=== PATIENT | female | born 1985 | race Caucasian/White ===

== ENCOUNTER 2017-03-10 17:48 | Inpatient (IN) ==
--- NOTE | 2017-03-10 18:05 | Emergency Department Note ---
Disposition Clinical Impression: Surgical site infection, Extruding suture Disposition: Admitted As Inpatient Condition: Good General Adult HPI - General Chief complaint: ED Extremity Problem,Nontraumatic Stated complaint: Right Shoulder Pain "Wire sticking out" Time Seen by Provider: 03/10/17 17:57 Source: patient, EMS Limitations: no limitations - History of Present Illness Pain Scale: 10 - Related Data Home Medications Medication Instructions Recorded Confirmed Naproxen [Naprosyn] 500 mg PO BID 03/10/17 03/10/17 Sulfamethoxazole/Trimeth DS 1 each PO QID 03/10/17 03/10/17 [Bactrim DS] Tramadol HCl [Ultram] 50 mg PO Q6-8H PRN 03/10/17 03/10/17 Allergies Allergy/AdvReac Type Severity Reaction Status Date / Time clindamycin AdvReac Swelling Verified 03/10/17 18:30 of the Eye Penicillins AdvReac Hives Verified 03/10/17 18:30 Past Medical History - Past Medical History Medical history: Reports: non-contributory Psychiatric history: Reports: no psych history - Social History Smoking Status: Current every day smoker Smokeless Tobacco Status: No Alcohol use: Reports: none Drug use: Reports: none Physical Exam - General Limitations: no limitations General appearance: alert, in no apparent distress Course Vital Signs Temperature 98.5 F 03/10/17 17:49 Pulse Rate 76 03/10/17 17:49 Respiratory Rate 16 03/10/17 17:49 Blood Pressure 146/86 03/10/17 17:49 O2 Sat by Pulse Oximetry 100 03/10/17 17:49 Temperature 98.5 F 03/10/17 17:49 Pulse Rate 59 03/10/17 21:17 Respiratory Rate 16 03/10/17 21:17 Blood Pressure 130/97 03/10/17 21:17 O2 Sat by Pulse Oximetry 98 03/10/17 21:17 Oxygen Delivery Oxygen Delivery Room Air Medical Decision Making - Lab Data Result diagrams: 03/10/17 18:25 03/10/17 18:25 Lab Results 03/10/17 03/10/17 03/10/17 Range/Units 18:25 18:25 18:25 WBC 13.7 H (4.3-11.1) K/mcL RBC 4.37 (3.82-4.97) M/mcL Hgb 12.3 (11.5-15.4) g/dL Hct 37.8 (35.3-44.9) % MCV 86.5 (83.0-100.0) fL MCH 28.1 (28.0-33.3) pg MCHC 32.5 (31.6-35.5) g/dL RDW 15.9 H (11.5-14.5) % Plt Count 607 H (140-400) K/mcL MPV 8.6 L (9.4-12.4) fL Immature Gran % 0.3 (0-4) % Seg Neutrophils % 60.3 % Lymphocytes % 29.7 % Monocytes % 6.9 % Eosinophils % 2.3 % Basophils % 0.5 % Neutrophils # 8.3 (1.6-8.9) K/mcL Lymphocytes # 4.1 (0.6-4.6) K/mcL Monocytes # 1.0 (0.0-1.3) K/mcL Eosinophils # 0.3 (0.0-0.6) K/mcL Basophils # 0.1 (0.0-0.2) K/mcL ESR 54 H (0-15) mm/hr Sodium 136 (136-145) mEq/L Potassium 3.5 (3.5-4.5) mEq/L Chloride 105 (98-109) mEq/L Carbon Dioxide 23 (19-29) mEq/L BUN 12 (7-20) mg/dL Creatinine 0.86 (0.57-1.11) mg/dL Est GFR ( Amer) > 60 (> 60) Est GFR (Non-Af Amer) > 60 (> 60) BUN/Creatinine Ratio 14 (6-26) Glucose 69 L (70-99) mg/dL Calculated Osmolality 280 (280-300) Calcium 9.1 (8.6-10.8) mg/dL C-Reactive Protein 14 H (Less than 5) mg/L Urine Test (Negative) 03/10/17 Range/Units 18:30 WBC (4.3-11.1) K/mcL RBC (3.82-4.97) M/mcL Hgb (11.5-15.4) g/dL Hct (35.3-44.9) % MCV (83.0-100.0) fL MCH (28.0-33.3) pg MCHC (31.6-35.5) g/dL RDW (11.5-14.5) % Plt Count (140-400) K/mcL MPV (9.4-12.4) fL Immature Gran % (0-4) % Seg Neutrophils % % Lymphocytes % % Monocytes % % Eosinophils % % Basophils % % Neutrophils # (1.6-8.9) K/mcL Lymphocytes # (0.6-4.6) K/mcL Monocytes # (0.0-1.3) K/mcL Eosinophils # (0.0-0.6) K/mcL Basophils # (0.0-0.2) K/mcL ESR (0-15) mm/hr Sodium (136-145) mEq/L Potassium (3.5-4.5) mEq/L Chloride (98-109) mEq/L Carbon Dioxide (19-29) mEq/L BUN (7-20) mg/dL Creatinine (0.57-1.11) mg/dL Est GFR ( Amer) (> 60) Est GFR (Non-Af Amer) (> 60) BUN/Creatinine Ratio (6-26) Glucose (70-99) mg/dL Calculated Osmolality (280-300) Calcium (8.6-10.8) mg/dL C-Reactive Protein (Less than 5) mg/L Urine Test Negative (Negative) Attestation Statement - Attestation Attestation: I examined this patient and my medical decision-making was reviewed with the Resident Physician. I agree with the documented findings, disposition and treatment plan as described except to the extent set forth below. [id number] time provided Right shoulder with protruding suture material and a granuloma. Incision looks infected. Patient uncomfortable appearing. Patient seen in conjunction with Dr. Martini
[2017-03-10] MEDS ORDERED: *HR* Morphine 2 MG/ML SYRINGE IVP ONE (18:27)
[2017-03-10] MEDS ORDERED: 0.9 % Sodium Chloride 1,000 ML IVC ONE (18:27)
[2017-03-10 18:35] LABS: Basophils # 0.1 K/mcL (0.0-0.2); Basophils % 0.5 %; Eosinophils # 0.3 K/mcL (0.0-0.6); Eosinophils % 2.3 %; Hematocrit 37.8 % (35.3-44.9); Hemoglobin 12.3 g/dL (11.5-15.4); Immature Granulocytes % 0.3 % (0-4); Lymphocytes # 4.1 K/mcL (0.6-4.6); Lymphocytes % 29.7 %; Mean Corpuscular HGB Conc 32.5 g/dL (31.6-35.5); Mean Corpuscular Hemoglobin 28.1 pg (28.0-33.3); Mean Corpuscular Volume 86.5 fL (83.0-100.0); Mean Platelet Volume 8.6 fL (9.4-12.4); Monocytes % 6.9 %; Neutrophils # 8.3 K/mcL (1.6-8.9); Platelet Count 607 K/mcL (140-400); Red Blood Count 4.37 M/mcL (3.82-4.97); Red Cell Distribution Width 15.9 % (11.5-14.5); Segmented Neutrophils % 60.3 %
[2017-03-10] MEDS ORDERED: Vancomycin 750 MG in D5% in Water 250 ML IVPB ONE ×2 (18:53→18:59)
[2017-03-10] MEDS ORDERED: Piperacillin/Tazobactam 4.5 GM in D5% in Water (Mini-Bag+) 100 ML IVPB ONE (18:54)
[2017-03-10] MEDS ORDERED: Cefepime HCl 1,000 MG in D5% in Water (Mini-Bag+) 100 ML IVPB ONE (19:04)
[2017-03-10 19:13] LABS: BUN/Creatinine Ratio 14 (6-26); Blood Urea Nitrogen 12 mg/dL (7-20); C-Reactive Protein 14 mg/L (Less than 5); Calcium 9.1 mg/dL (8.6-10.8); Carbon Dioxide 23 mEq/L (19-29); Chloride 105 mEq/L (98-109); Glucose 69 mg/dL (70-99); Osmolality,Calculated 280 (280-300); Potassium 3.5 mEq/L (3.5-4.5); Sodium 136 mEq/L (136-145); eGFR For African Americans > 60 (> 60); eGFR For Non-African Americans > 60 (> 60)
[2017-03-10] MEDS ORDERED: *HR* HYDROmorphone (PF) 1 MG/ML SYRINGE IVP ONE (19:25)
--- NOTE | 2017-03-10 19:55 | Emergency Department Note ---
Disposition Clinical Impression: Surgical site infection Qualifiers: Encounter type: initial encounter Qualified Code(s): T81.4XXA - Infection following a procedure, initial encounter Extruding suture Qualifiers: Encounter type: initial encounter Qualified Code(s): T81.30XA - Disruption of wound, unspecified, initial encounter Disposition: Admitted As Inpatient Condition: Good Referrals: NONE,PCP [Primary Care Provider] - Forms: ED Satisfaction Letter Time of Disposition: 20:02 Extremity Problem HPI - General Chief complaint: ED Extremity Problem,Nontraumatic Stated complaint: Right Shoulder Pain "Wire sticking out" Time Seen by Provider: 03/10/17 17:57 Source: patient, EMS Limitations: no limitations Nursing Notes Reviewed: Yes Vital Signs Reviewed: Yes - History of Present Illness HPI Narrative: 31-year-old female with past medical history of right shoulder replacement with revision a year ago presents to the emergency department with increasing purulent sputum, pain, redness, and suture coming out of the wound. She states that she has been missing her orthopedic appointment as that rescheduled due to issues with getting a ride. She states that she was seen recently at a different hospital 2 days ago and given Bactrim. Patient states that she is ready to be seen. Pain Scale: 10 - Related Data Home Medications Medication Instructions Recorded Confirmed Naproxen [Naprosyn] 500 mg PO BID 03/10/17 03/10/17 Sulfamethoxazole/Trimeth DS 1 each PO QID 03/10/17 03/10/17 [Bactrim DS] Tramadol HCl [Ultram] 50 mg PO Q6-8H PRN 03/10/17 03/10/17 Allergies Allergy/AdvReac Type Severity Reaction Status Date / Time clindamycin AdvReac Swelling Verified 03/10/17 18:30 of the Eye Penicillins AdvReac Hives Verified 03/10/17 18:30 All systems ED: reviewed and negative except as stated. Review of Systems: As Per HPI Constitutional: Denies: fever, chills Cardiovascular: Denies: chest pain Respiratory: Denies: cough, dyspnea, wheezes Gastrointestinal: Denies: abdominal pain, nausea, vomiting Genitourinary: Denies: urgency, dysuria, frequency Musculoskeletal: Reports: other (Right shoulder pain) Integumentary: Reports: other (Opening draining purulent fluid). Denies: rash Past Medical History - Past Medical History Medical history: Reports: non-contributory Psychiatric history: Reports: no psych history - Social History Smoking Status: Current every day smoker Smokeless Tobacco Status: No Alcohol use: Reports: none Drug use: Reports: none Physical Exam - General Limitations: no limitations General appearance: alert, in no apparent distress - Head Head exam: atraumatic, normocephalic - Eye Eye exam: Absent: scleral icterus, conjunctival injection - ENT ENT exam: normal exam, normal oropharynx - Neck Neck exam: Present: full ROM, trachea midline. Absent: tenderness, meningismus - Chest Chest inspection: Present: normal inspection, symmetric chest wall rise - Respiratory Respiratory exam: Present: normal lung sounds bilaterally. Absent: respiratory distress, accessory muscle use - Cardiovascular Cardiovascular exam: Present: regular rate, normal rhythm, normal heart sounds - Abdominal Exam Abdominal exam: Present: soft, Non-Tender. Absent: distention, guarding - Expanded Upper Extremity Exam Shoulder exam: Present: tenderness, swelling, other (Right shoulder surgical site is open, 2 cm in diameter, draining purulent yellow fluid, suture outside of the wound, very tender to palpation.) Course Course Narrative: 31-year-old female presents to the emergency department with complaint of purulent drainage and pain of her right shoulder. This patient is a current patient of Dr. Ragland, the orthopedic surgeon. This wound looks infected. There is cellulitis surrounding it. At this time, I will consult him for further recommendation regarding this patient as I plan on admitting her to the hospital to have this wound possibly explored. Patient is currently hemodynamically stable at this time. Vital Signs Temperature 98.5 F 03/10/17 17:49 Pulse Rate 76 03/10/17 17:49 Respiratory Rate 16 03/10/17 17:49 Blood Pressure 146/86 03/10/17 17:49 O2 Sat by Pulse Oximetry 100 03/10/17 17:49 Temperature 98.5 F 03/10/17 17:49 Pulse Rate 76 03/10/17 17:49 Respiratory Rate 16 03/10/17 17:49 Blood Pressure 146/86 03/10/17 17:49 O2 Sat by Pulse Oximetry 100 03/10/17 17:49 Oxygen Delivery Oxygen Delivery Room Air - Reevaluation(s) Reevaluation #1: I spoke to Dr. Taveras the orthopedic surgeon on the phone. He stated to start IV antibiotics as well as obtain a sedimentation rate, CBC, wound culture, IV fluids. I agreed with this plan. I will admit this patient to the hospitalist. Patient is still having discomfort after administration of morphine. I will add Dilaudid to her pain management. Time: 18:30 Reevaluation #2: I have spoken to the hospitalist on the phone as he has agreed to accept the admission of this patient. She is currently hemodynamically stable at this time. Time: 20:03 Vital Signs Temperature 98.5 F 03/10/17 17:49 Pulse Rate 76 03/10/17 17:49 Respiratory Rate 16 03/10/17 17:49 Blood Pressure 146/86 03/10/17 17:49 O2 Sat by Pulse Oximetry 100 03/10/17 17:49 Temperature 98.5 F 03/10/17 17:49 Pulse Rate 76 03/10/17 17:49 Respiratory Rate 16 03/10/17 17:49 Blood Pressure 146/86 03/10/17 17:49 O2 Sat by Pulse Oximetry 100 03/10/17 17:49 Oxygen Delivery Oxygen Delivery Room Air Extremity Problem, Nontraumati - Medical Records Medical records reviewed: Yes I reviewed the patient's medical records. - Lab Data Lab results reviewed: Yes I reviewed the patient's lab results. Result diagrams: 03/10/17 18:25 03/10/17 18:25 Lab Results 03/10/17 03/10/17 03/10/17 Range/Units 18:25 18:25 18:25 WBC 13.7 H (4.3-11.1) K/mcL RBC 4.37 (3.82-4.97) M/mcL Hgb 12.3 (11.5-15.4) g/dL Hct 37.8 (35.3-44.9) % MCV 86.5 (83.0-100.0) fL MCH 28.1 (28.0-33.3) pg MCHC 32.5 (31.6-35.5) g/dL RDW 15.9 H (11.5-14.5) % Plt Count 607 H (140-400) K/mcL MPV 8.6 L (9.4-12.4) fL Immature Gran % 0.3 (0-4) % Seg Neutrophils % 60.3 % Lymphocytes % 29.7 % Monocytes % 6.9 % Eosinophils % 2.3 % Basophils % 0.5 % Neutrophils # 8.3 (1.6-8.9) K/mcL Lymphocytes # 4.1 (0.6-4.6) K/mcL Monocytes # 1.0 (0.0-1.3) K/mcL Eosinophils # 0.3 (0.0-0.6) K/mcL Basophils # 0.1 (0.0-0.2) K/mcL ESR 54 H (0-15) mm/hr Sodium 136 (136-145) mEq/L Potassium 3.5 (3.5-4.5) mEq/L Chloride 105 (98-109) mEq/L Carbon Dioxide 23 (19-29) mEq/L BUN 12 (7-20) mg/dL Creatinine 0.86 (0.57-1.11) mg/dL Est GFR ( Amer) > 60 (> 60) Est GFR (Non-Af Amer) > 60 (> 60) BUN/Creatinine Ratio 14 (6-26) Glucose 69 L (70-99) mg/dL Calculated Osmolality 280 (280-300) Calcium 9.1 (8.6-10.8) mg/dL C-Reactive Protein 14 H (Less than 5) mg/L Urine Test (Negative) 03/10/17 Range/Units 18:30 WBC (4.3-11.1) K/mcL RBC (3.82-4.97) M/mcL Hgb (11.5-15.4) g/dL Hct (35.3-44.9) % MCV (83.0-100.0) fL MCH (28.0-33.3) pg MCHC (31.6-35.5) g/dL RDW (11.5-14.5) % Plt Count (140-400) K/mcL MPV (9.4-12.4) fL Immature Gran % (0-4) % Seg Neutrophils % % Lymphocytes % % Monocytes % % Eosinophils % % Basophils % % Neutrophils # (1.6-8.9) K/mcL Lymphocytes # (0.6-4.6) K/mcL Monocytes # (0.0-1.3) K/mcL Eosinophils # (0.0-0.6) K/mcL Basophils # (0.0-0.2) K/mcL ESR (0-15) mm/hr Sodium (136-145) mEq/L Potassium (3.5-4.5) mEq/L Chloride (98-109) mEq/L Carbon Dioxide (19-29) mEq/L BUN (7-20) mg/dL Creatinine (0.57-1.11) mg/dL Est GFR ( Amer) (> 60) Est GFR (Non-Af Amer) (> 60) BUN/Creatinine Ratio (6-26) Glucose (70-99) mg/dL Calculated Osmolality (280-300) Calcium (8.6-10.8) mg/dL C-Reactive Protein (Less than 5) mg/L Urine Test Negative (Negative)
[2017-03-10] MEDS ORDERED: Naloxone 0.4 MG/ML INJ IVP PRN (20:21)
[2017-03-10] MEDS ORDERED: *HR* Morphine 2 MG/ML SYRINGE IVP PRN (20:25)
[2017-03-10] MEDS ORDERED: Ondansetron 4 MG/2 ML VIAL IVP PRN (20:25)
[2017-03-10] MEDS ORDERED: Acetaminophen 325 MG TABLET PO PRN (20:25)
--- NOTE | 2017-03-10 20:46 | Internal Med History&Physical ---
<Janet Hewitt - Last Filed: 03/10/17 21:13> Date of Encounter: 03/10/17 Time of Encounter: 20:46 Assessment and Plan (1) Surgical site infection Current visit: Yes Status: Acute 1 patient underwent. Right revision glenoid component total shoulder 11-18-15, since this time she has been experience infection in the surgical site. She has been noncompliant with follow-up as well as antibiotic treatment. She presented to the ER today with purulent drainage from incision site and had exposed suture. Orthopedics has been consulted 2 wound cultures have been obtained and sent 3 we will continue with vancomycin and cefepime 4 we will make patient nothing by mouth after midnight for any possible surgical intervention in the a.m. Qualifiers: Encounter type: initial encounter Qualified Code(s): T81.4XXA - Infection following a procedure, initial encounter (2) Extruding suture Current visit: Yes Status: Acute 1 patient has exposed suture from right shoulder incision site. Site appears to be infected with purulent drainage. Orthopedics has been consulted. Patient nothing by mouth for possible surgical intervention in a.m. Qualifiers: Encounter type: initial encounter Qualified Code(s): T81.30XA - Disruption of wound, unspecified, initial encounter (3) Tobacco abuse Current visit: No Status: Chronic Encourage patient to stop smoking nicotine patch (4) DVT prophylaxis Current visit: Yes Status: [facility] Internal Medicine - H&P: HPI Chief complaint: R shoulder pain drainage Admitted From: Emergency Dept Plans for Post Hospital Care: Home History of present illness: Ms. Mcallister is a 31 year old female past medical history of asthma and tobacco use Right revision glenoid component total shoulder 11-18-15. Patient had a right shoulder replacement with revision approximately one year ago. Since that time she has been experiencing repeated infections and had at one point received IV vancomycin per PICC as outpatient.. Review of [facility] report apparently her PICC line was discontinued in October due to patient's noncompliance with her IV antibiotic treatment and with follow-up appointments. Also there was concern that she was utilizing the PICC for IV drug use. She presently has increasing purulent drainage pain redness in his suture coming out of her right shoulder wound. Over the past 2 days she has been to outlying facility concerning the drainage and was given Bactrim. There had been no improvement she presented to this facility for further evaluation. According to ER records lab was obtained which did reveal white count of 13.7 chemistry was unremarkable ESR was 54 CRP was 14. ER physician did speak with Dr. Taveras the orthopedic surgeon who will see patient up on consult advised to start antibiotic treatments. Presently the patient does not appear to be in any pain or discomfort. Right shoulder with open wound that is draining white purulent drainage with a small suture exposed. Surrounding tissue is red and tender to touch. She has palpable pulses to right extremity no swelling noted denies any numbness or tingling. It appears that she does have old track vega on upper extremities bilaterally. Her lung sounds are clear heart sounds are regular S1 and S2 with no rubs clicks, noted she is hemodynamically stable at this time. I did review his case with Dr. Arias who agrees with plan I Past Med Surg Social Fam HX - Past Medical History Medical history: non-contributory Psychiatric history: no psych history - Social History Smoking Status: Current every day smoker Smokeless Tobacco Status: No Alcohol use: none Drug use: none - Family History Father Living Status: Still Living Hx Family Cardiac Disorders: Yes (Hypertension) Internal Medicine - H&P: Meds Naproxen [Naprosyn] 500 mg PO BID 03/10/17 [History] Sulfamethoxazole/Trimeth DS [Bactrim DS] 1 each PO QID 03/10/17 [History] Tramadol HCl [Ultram] 50 mg PO Q6-8H PRN 03/10/17 [History] 3 Allergy/AdvReac Type Severity Reaction Status Date / Time clindamycin AdvReac Swelling Verified 03/10/17 18:30 of the Eye Penicillins AdvReac Hives Verified 03/10/17 18:30 All Systems PM: A 10-system review of systems was performed and is negative for pertinent findings except as documented above in the HPI. - Constitutional Constitutional: no chills, no fever(s), no night sweats - EENT Eyes: no change in vision, no discharge, no pain, no photophobia Nose, mouth and throat: no dysphagia, no nasal discharge, no neck pain, no sore throat - Cardiovascular Cardiovascular ROS IM: no chest pain, no diaphoresis, no dyspnea, no lightheadedness, no palpitations, no syncope - Respiratory Respiratory: no cough, no dyspnea, no wheezing, no excessive phlegm production - Gastrointestinal Gastrointestinal: no abdominal pain, no diarrhea, no hematemesis, no hematochezia, no melena, no nausea, no vomiting - Genitourinary Genitourinary: no change in urinary stream, no dysuria, no flank pain, no hematuria - Integumentary Integumentary IM: non-healing lesions - Constitutional Vitals: Temp Pulse Resp BP Pulse Ox 98.5 F 77 16 130/91 100 03/10/17 17:49 03/10/17 20:30 03/10/17 20:30 03/10/17 20:30 03/10/17 20:30 General appearance: Present: A&O X 3, answers questions appropriately - Head Head exam: Present: atraumatic, normocephalic - Eye Eye exam: Present: PERRL, conjuntiva pink, sclera anicteric Pupils: Present: PERRL - Neck Neck exam general surgery: Present: supple, trachea midline. Absent: lymphadenopathy - Respiratory Respiratory exam: Present: CTAB. Absent: accessory muscle use, rales, rhonchi, wheezes - Cardiovascular Cardiovascular exam: Present: RRR, +S1, +S2. Absent: diastolic murmur, gallop, rubs, systolic murmur - GI/Abdominal GI/Abdominal exam: Present: normal bowel sounds, soft, no peritoneal signs. Absent: distended, tenderness - Expanded Upper Extremities Exam Shoulder exam: Present: tenderness - Incison Incision: Present: draining, red, erythema, purulent, open - Skin Skin exam: Present: dry, intact Internal Med - H&P Results - Labs CBC & Chem 7: 03/10/17 18:25 03/10/17 18:25 Labs: Short CBC 03/10/17 Range/Units 18:25 WBC 13.7 H (4.3-11.1) K/mcL Hgb 12.3 (11.5-15.4) g/dL Hct 37.8 (35.3-44.9) % Plt Count 607 H (140-400) K/mcL Neutrophils # 8.3 (1.6-8.9) K/mcL BMP 03/10/17 18:25 Sodium 136 Potassium 3.5 Chloride 105 Carbon Dioxide 23 BUN 12 Creatinine 0.86 Glucose 69 L Calcium 9.1 <Stephanie Arias - Last Filed: 03/10/17 21:21> Date of Encounter: 03/10/17 Internal Medicine - H&P: HPI History of present illness: Ms. Mcallister is a 31 year old female All Systems PM: A 10-system review of systems was performed and is negative for pertinent findings except as documented above in the HPI. - Constitutional Vitals: Temp Pulse Resp BP Pulse Ox 98.5 F 59 16 130/97 98 03/10/17 17:49 03/10/17 21:17 03/10/17 21:17 03/10/17 21:17 03/10/17 21:17 Internal Med - H&P Results - Labs CBC & Chem 7: 03/10/17 18:25 03/10/17 18:25 - Attending Attestation I examined this patient and my medical decision-making was reviewed with the Resident Physician. I agree with the documented findings, disposition and treatment plan as described except to the extent set forth below. Ms. Diana Mcallister is a 31-year-old female with a history of recurrent right surgical site infection. She is established with Dr. Mariee and her orthopedic surgeon. Her past medical history started out in 2013 with a right shoulder labral tear where she had primary surgical management. She reports postoperative complications of infection where she had the need to undergo a revision surgery approximately a year ago. Unfortunately after the revision surgery she continues to develop persistent postoperative drainage concerning for residual infection. She had a PICC placement with IV antibiotics a few months ago which did not be to improvement. She had persistent pain in her right shoulder and persistent purulent drainage. She was recently seen at [facility] and was prescribed a dose of Bactrim. She has an outpatient appointment with Dr. Ragland of orthopedics tomorrow. He denies any fevers or chills. Suspicious hx of IVDU based on hx but unconfirmed. General - AAO x 3 Psych - Appropriate affect/speech. No agitation Eyes - VIRY. Eye lids intact. No scleral icterus Heart - Sinus. RRR. S1 and S2 present. No added HS/murmurs appreciated. No elevated JVD appreciated. Lung - Adequate air entry b/l, No crackles/wheezes appreciated GI - Soft, non-tender. No hepatosplenomegaly/ascites. BS+ MSK - Right shoulder wound with purulent drainage ROS 14 point review of systems reviewed as best as possible given presentation. Pertinent positive or negative as per HPI or otherwise reviewed as negative. Assessment and plan Septic right shoulder joint - ED discussed with Dr. Juan of orthopedics. Conservative management with IV antibiotics , nothing by mouth overnight. Orthopedics evaluation in the morning for possible surgical washout
[2017-03-10] MEDS ORDERED: Albuterol 2.5 MG/3 ML NEBULIZER IH PRN (21:12)
[2017-03-10 21:46] LABS: Amphetamine Screen,Urine Positive ng/mL (Cutoff=1000); Barbiturate Screen,Urine Negative ng/mL (Cutoff=200); Benzodiazepines Screen,Urine Negative ng/mL (Cutoff=200); Cannabinoid Screen,Urine Positive ng/mL (Cutoff = 50); Cocaine Screen,Urine Negative ng/mL (Cutoff= 300); Opiate Screen,Urine Negative ng/mL (Cutoff=300); Phencyclidine Screen,Urine Negative ng/mL (Cutoff=25)
[2017-03-10] MEDS: Nicotine 21 MG PATCH.TD24 TD SCH (22:59)
[2017-03-10] MEDS: 0.9 % Sodium Chloride 1,000 ML IVC SCH (22:59)
[2017-03-10] MEDS: *HR* HYDROcodone/Acet 5/325 mg TABLET PO PRN (23:07)
[2017-03-11] MEDS: *HR* Morphine 2 MG/ML SYRINGE IVP PRN ×4 (02:30→20:35)
[2017-03-11 05:08] LABS: Basophils # 0.1 K/mcL (0.0-0.2); Basophils % 0.9 %; Eosinophils # 0.4 K/mcL (0.0-0.6); Eosinophils % 4.8 %; Hematocrit 32.7 % (35.3-44.9); Immature Granulocytes % 0.2 % (0-4); Lymphocytes # 3.4 K/mcL (0.6-4.6); Lymphocytes % 38.2 %; Mean Corpuscular HGB Conc 31.5 g/dL (31.6-35.5); Mean Corpuscular Hemoglobin 27.7 pg (28.0-33.3); Mean Corpuscular Volume 87.9 fL (83.0-100.0); Mean Platelet Volume 8.6 fL (9.4-12.4); Monocytes # 0.6 K/mcL (0.0-1.3); Monocytes % 6.7 %; Neutrophils # 4.3 K/mcL (1.6-8.9); Platelet Count 521 K/mcL (140-400); Red Blood Count 3.72 M/mcL (3.82-4.97); Red Cell Distribution Width 15.9 % (11.5-14.5); Segmented Neutrophils % 49.2 %
[2017-03-11 05:24] LABS: BUN/Creatinine Ratio 14 (6-26); Blood Urea Nitrogen 10 mg/dL (7-20); Calcium 8.3 mg/dL (8.6-10.8); Carbon Dioxide 21 mEq/L (19-29); Chloride 111 mEq/L (98-109); Glucose 93 mg/dL (70-99); Osmolality,Calculated 283 (280-300); Sodium 137 mEq/L (136-145); eGFR For African Americans > 60 (> 60); eGFR For Non-African Americans > 60 (> 60)
[2017-03-11 05:29] LABS: Hemoglobin 10.3 g/dL (11.5-15.4)
[2017-03-11] MEDS ORDERED: Cefepime HCl 2,000 MG in D5% in Water (Mini-Bag+) 100 ML IVPB SCH (06:00)
[2017-03-11] MEDS: 0.9 % Sodium Chloride 1,000 ML IVC SCH (07:17)
[2017-03-11] MEDS: Vancomycin 1,000 MG in D5% in Water 250 ML IVPB SCH ×2 (07:56→20:35)
[2017-03-11] MEDS: Nicotine 21 MG PATCH.TD24 TD SCH (08:05)
--- NOTE | 2017-03-11 08:42 | Orthopedic Consult Note ---
Date of Encounter: 03/11/17 Time of Encounter: 08:39 History of Present Illness HPI: Ms. Mcallister is a 31 year old female who is well-known to me. She is a noncompliant patient status post right total shoulder replacement status post fall down a flight of stairs with a periprosthetic humerus fracture.The patient had been followed for a late developing infection in the right arm. Concerned that this may be related to drug use. Patient was noncompliant with follow-up concerned that she was using drugs through her PICC line forcing us have the authorities go to her house. The patient has not followed up in the office for the past few months and wound up in the emergency room yesterday. Patient still has drainage from her right shoulder.The patient seems amenable to treatment at this time. Right upper extremity has draining wound neurovascular intact Patient has infected right total shoulder and hardware recommendations for removal of hardware and shoulder with placement of cement spacer. Decision will need to be made on how to treat her postoperatively with IV antibiotics most likely she will require rehabilitation facility to avoid concerns of inappropriate behavior with PICC line. This will be discussed with the patient. Plan is for surgery tomorrow Past Med Surg Social Fam HX - Past Medical History Medical history: COPD Psychiatric history: anxiety, PTSD - Social History Smoking Status: Current every day smoker Packs per day: 1 Smokeless Tobacco Status: No Alcohol use: none Drug use: none - Family History Father Living Status: Still Living Hx Family Cardiac Disorders: Yes (Enlarged heart, HTN) Mother Living Status: Still Living Hx Family Cardiac Disorders: Yes (Unknown specific dx) Hx Family Respiratory Disorders: Yes (COPD) Medications and Allergies Naproxen [Naprosyn] 500 mg PO BID 03/10/17 [History] Sulfamethoxazole/Trimeth DS [Bactrim DS] 1 each PO QID 03/10/17 [History] Tramadol HCl [Ultram] 50 mg PO Q6-8H PRN 03/10/17 [History] 3 Allergy/AdvReac Type Severity Reaction Status Date / Time clindamycin AdvReac Swelling Verified 03/10/17 18:30 of the Eye Penicillins AdvReac Hives Verified 03/10/17 18:30 All Systems Reviewed: A 10-system review of systems was performed and is negative for pertinent findings except as documented above in the HPI. Physical Exam - Constitutional Vitals: Temp Pulse Resp BP Pulse Ox 98.1 F 56 16 107/72 98 03/11/17 06:25 03/11/17 06:25 03/11/17 06:25 03/11/17 06:25 03/11/17 06:25 Results - Labs Result Diagrams: 03/11/17 04:52 03/11/17 04:52 Labs: Abnormal lab results RBC 3.72 M/mcL (3.82-4.97) L 03/11/17 04:52 Hgb 10.3 g/dL (11.5-15.4) L D 03/11/17 04:52 Hct 32.7 % (35.3-44.9) L 03/11/17 04:52 MCH 27.7 pg (28.0-33.3) L 03/11/17 04:52 MCHC 31.5 g/dL (31.6-35.5) L 03/11/17 04:52 RDW 15.9 % (11.5-14.5) H 03/11/17 04:52 Plt Count 521 K/mcL (140-400) H 03/11/17 04:52 MPV 8.6 fL (9.4-12.4) L 03/11/17 04:52 ESR 54 mm/hr (0-15) H 03/10/17 18:25 Chloride 111 mEq/L (98-109) H 03/11/17 04:52 POC Glucose 101 (58-89) H 03/11/17 05:48 Calcium 8.3 mg/dL (8.6-10.8) L 03/11/17 04:52 C-Reactive Protein 14 mg/L (Less than 5) H 03/10/17 18:25 Ur Amphetamines Screen Positive ng/mL ([id number]) H 03/10/17 18:30 U Marijuana (THC) Screen Positive ng/mL (Cutoff = 50) H 03/10/17 18:30 H & H 03/11/17 Range/Units 04:52 Hgb 10.3 L D (11.5-15.4) g/dL Hct 32.7 L (35.3-44.9) % All other labs normal. Consult Discharge Plan - Plan Referrals: NONE,PCP [Primary Care Provider] -
[2017-03-11] MEDS ORDERED: Vancomycin (wt based) 1,000 MG VIAL IVPB SCH (09:00)
[2017-03-11] MEDS: *HR* HYDROcodone/Acet 5/325 mg TABLET PO PRN ×2 (10:16→17:30)
[2017-03-11] MEDS ORDERED: *HR* HYDROmorphone (PF) 1 MG/ML SYRINGE IVP ONE (12:52)
--- NOTE | 2017-03-11 13:01 | Event Note ---
Date of Encounter: 03/11/17 Time of Encounter: 13:01 Patient doing well; wound check. Fiberwire suture exposed - granulation tissue. Consent discussed - Plan for Right shoulder CARIN 03/12 with . Patient signed consent. NPO after midnight. She will likely need IV antibiotics x 6 weeks - recommended rehab ECF placement for duration of IV ABX secondary to patient's noncompliance with follow up and patient safety.
--- NOTE | 2017-03-11 13:55 | Internal Med Progress Note ---
Date of Encounter: 03/11/17 Time of Encounter: 13:52 - Assessment and plan (1) Wound of right shoulder Current Visit: Yes Status: Acute Assessment and plan: Ms. Mcallister is a 31 year old female with PMH total right shoulder replacement with subsequent chronic, nonhealing wound and polysubstance abuse who presented to [facility] on 03/10/2017 with complaints of right shoulder pain and concern for right shoulder infection. She was admitted for orthopedic consultation. 1. Hx right total shoulder replacement: Secondary to fall down stairs with periprosthetic humerus fracture. Previously seen Ortho for a late developing infection in right arm (thought to be related to drug use at that time). Has been noncompliant with follow-up. Now with persistent drainage from right shoulder. Evaluated by Ortho who is planning removal of hardware with placement of cement spacer. Will likely need long-term IV ATB's postoperatively which will require patient going to rehabilitation facility to avoid concerns of inappropriate use of PICC home. OR planned for 03/12. NPO midnight, cautious pain control, IV vanco 2. Polysubstance abuse: per hx although patient denies. UDS positive for amphetamines and marijuana. Continue judicious pain control. 3. DVT prophylaxis: Lovenox Qualifiers: Encounter type: sequela Qualified Code(s): S41.001S - Unspecified open wound of right shoulder, sequela (2) DVT prophylaxis Current Visit: Yes Status: Acute (3) Tobacco abuse Current Visit: No Status: Chronic - Time Spent With Patient less than 15 minutes - Subjective Interval history: Seen and examined at bedside, patient is new to me. Information obtained from chart review and patient report. Patient's complaining of uncontrolled right shoulder pain. Says [place] helps a little bit, IV morphine has not helped at all. She is requesting something stronger for pain. Discussed history of PICC and IV drug abuse. Patient denies, she is aware that OR is planned for tomorrow morning. Denies chest pain, no SOB. - Constitutional Vitals: Temp Pulse Resp BP Pulse Ox 98.3 F 58 16 109/67 99 03/11/17 10:03/11/17 10:03/11/17 10:09 03/11/17 10:03/11/17 10:09 General appearance: Present: A&O X 3, answers questions appropriately - Head Head exam: Present: atraumatic, normocephalic - Eye Eye exam: Present: PERRL, conjuntiva pink, sclera anicteric Pupils: Present: PERRL - Neck Neck exam general surgery: Present: supple, trachea midline. Absent: lymphadenopathy - Respiratory Respiratory exam: Present: CTAB. Absent: accessory muscle use, rales, rhonchi, wheezes - Cardiovascular Cardiovascular exam: Present: RRR, +S1, +S2. Absent: diastolic murmur, gallop, rubs, systolic murmur - GI/Abdominal GI/Abdominal exam: Present: normal bowel sounds, soft, no peritoneal signs. Absent: distended, tenderness - Extremities Exam Extremities exam: Present: warm, radial pulses palpable and symmetrical. Absent : calf tenderness, cyanotic, pedal edema Additional comments: Right shoulder swollen, dressing clean dry and intact (wound not assessed per patient request) - Neurological Exam Neurological exam: Present: CN II-XII intact, oriented X3, no focal deficits. Absent: pronater drift, facial droop, speech deficit - Skin Skin exam: Present: dry, intact Internal Medicine: Result - Labs CBC & Chem 7: 03/11/17 04:52 03/11/17 04:52 Labs: Short CBC 03/11/17 Range/Units 04:52 WBC 8.8 (4.3-11.1) K/mcL Hgb 10.3 L D (11.5-15.4) g/dL Hct 32.7 L (35.3-44.9) % Plt Count 521 H (140-400) K/mcL Neutrophils # 4.3 (1.6-8.9) K/mcL BMP 03/11/17 04:52 Sodium 137 Potassium 4.0 Chloride 111 H Carbon Dioxide 21 BUN 10 Creatinine 0.72 Glucose 93 Calcium 8.3 L Consult Discharge Plan - Plan Referrals: NONE,PCP [Primary Care Provider] -
[2017-03-11] MEDS: *HR* Enoxaparin 40 MG/0.4 ML SYRINGE SQ SCH (17:27)
--- NOTE | 2017-03-11 20:25 | Anesthesia Evaluation PreOp ---
Date of Encounter: 03/11/17 Time of Encounter: 20:23 - Past History Planned Operation: R-shoulder removal of hardware re:Septic R-shoulder Cardiac History: Denies any Significant Hx Pulmonary History: Smoker (2+ppd x 16yrs - "currently 1ppd"), Asthma [employer] History: Denies Any Significant HX Other Medical History: Denies Any Significant HX Anesthesia History: No Prior Anesthetic Complications, Past Anesthesia (R- shoulder labral repair 2013, R-TSR, ORIF R-humerus, R-shoulder revision 11/2015, [place], BTL, Nasal/Sinus surgery,) : No Test: Negative Alcohol Use: none Drug use: none, IV Drug Use (Suspected Hx per admission H&P) Medications and Allergies Naproxen [Naprosyn] 500 mg PO BID 03/10/17 [History] Sulfamethoxazole/Trimeth DS [Bactrim DS] 1 each PO QID 03/10/17 [History] Tramadol HCl [Ultram] 50 mg PO Q6-8H PRN 03/10/17 [History] 3 Allergy/AdvReac Type Severity Reaction Status Date / Time clindamycin AdvReac Swelling Verified 03/10/17 18:30 of the Eye Penicillins AdvReac Hives Verified 03/10/17 18:30 - Meds/Allergy Pre-op Review Medications Reviewed: Yes Allergies Reviewed: Yes Beta Blockers on Current Med List: No Anesthesia Results - Labs 03/11/17 04:52 03/11/17 04:52 Laboratory Tests 03/10/17 03/10/17 03/11/17 18:30 18:30 04:52 Est GFR (Non-Af Amer) > 60 Urine Test Negative Urine Opiates Screen Negative Ur Phencyclidine Scrn Negative Ur Amphetamines Screen Positive H Urine Cocaine Screen Negative U Marijuana (THC) Screen Positive H Laboratory Results Impressions Shoulder X-Ray 03/11/17 13:00 IMPRESSION: Status post right total shoulder arthroplasty and ORIF of the proximal right humerus without complication identified. D/ / Pierre López MD / Pierre López MD Interpreting Provider: Pierre López MD Anesthesia Exam Vital Signs Temp Pulse Resp BP Pulse Ox 03/11/17 19:06 98.1 F 67 16 109/60 98 03/11/17 15:27 97.9 F 63 16 116/76 99 03/11/17 10:09 98.3 F 58 16 109/67 99 03/11/17 06:25 98.1 F 56 16 107/72 98 03/11/17 03:21 98.1 F 62 16 103/68 99 03/10/17 23:12 98.1 F 66 18 131/77 100 03/10/17 21:39 98.2 F 61 18 132/87 100 03/10/17 21:34 18 130/97 03/10/17 21:17 59 16 130/97 98 03/10/17 20:30 77 16 130/91 100 Intake and Output 03/11/17 03/11/17 03/11/17 07:59 15:59 23:59 Intake Total 1000 / 1000 1128 / 1128 120 / 120 Output Total 0 / 0 550 / 550 300 / 300 Balance 1000 / 1000 578 / 578 -180 / -180 Intake: IV Fluids 1000 / 1000 628 / 628 0.9 % Sodium Chloride 1,000 ML 1000 / 1000 378 / 378 @ 125 mls/hr IVC .Q8H [facility] Rx#: [id number] Vancocin 1,000 MG In Dextrose 5 250 / 250 % 250 ML @ 167 mls/hr IVPB Q12H [facility] Rx#:[id number] Oral 500 / 500 120 / 120 Output: Urine 0 / 0 550 / 550 300 / 300 Other: Meal Lunch Dinner Percent of Meal Consumed 90% 75% Blood Glucose* 98 77 Height: 5'3" Weight: 126# BMI = 22 NPO (# of Hours): MNOc - HEENT Pupil (Motor): Pupils equal, EOMI Mallampati: I Teeth: Poor dentition Oral Opening: Greater than 3 - [employer] LOC: Oriented [employer]IST Motor: Normal LUE, Normal RLE, Normal LLE, Normal Face, Deficit RUE [employer] Sensory: Normal: LUE, RLE, LLE, Face, Deficit: RUE - Cardiac Rhythm: Regular Murmur: None - Pulmonary Breath Sounds: bilateral Clear Respiratory Effort: Symmetrical Anesthesia Assess/Plan ASA Score: 3 (Septic R-shoulder, Smoker, Suspected IVDA) Modified [place] Scale for Level of Consciousness: Cooperative, oriented, and tranquil Anesthetic Plan: General Monitoring Plan: Standard Monitors Recovery Plan: PACU Anes Supervising Prov Stmt: Pt seen/evaluated, R&B Discussed, questions answered and consent obtained. Rhett Solo MD
--- NOTE | 2017-03-11 22:24 | Physician Discharge Referral ---
ExtendedCare Referral Info Transfer To: [facility] - Diagnosis (1) Surgical site infection Priority: Primary Status: Acute (2) Wound of right shoulder Priority: Secondary Status: Acute (3) Asthma Priority: Secondary Status: Chronic (4) Tobacco abuse Priority: Secondary Status: Chronic Expected Duration of Placement: less than 30 days Prognosis: Fair Aware of Diagnosis: Patient Aware of Prognosis: Patient - Transfer Medications Home Medications: Naproxen [Naprosyn] 500 mg PO BID 03/10/17 [History] Sulfamethoxazole/Trimeth DS [Bactrim DS] 1 each PO QID 03/10/17 [History] Tramadol HCl [Ultram] 50 mg PO Q6-8H PRN 03/10/17 [History] Allergies/Adverse Reactions: 3 Allergy/AdvReac Type Severity Reaction Status Date / Time clindamycin AdvReac Swelling Verified 03/10/17 18:30 of the Eye Penicillins AdvReac Hives Verified 03/10/17 18:30 - Respiratory Orders Smoking Cessation: Smoking cessation has been advised. For more information, call the [employer] Quit Line at 1-833-YPOS-NOW. - Ancillary Orders May use pressure relief devices daily prn, May consult with Dentist, Repair Department Manager, Bull Driver PRN - Mobility Orders Chair, Ambulate - Rehabiliation Orders Rehab Potential: Fair Rehab Orders: Evaluation for Physical Therapy, Evaluation for Occupational Therapy - Treatments Skin tear care topically daily PRN per policy - Diet Orders Regular CERTIFICATION: I certify that the transfer of the above named patient to an Extended Care Facility is necessary for the continuing treatment of the diagnosis listed. The above information is true and accurate reflection of patient's current condition. Confidential - Redisclosure prohibited without a patient's written consent.
[2017-03-12] MEDS: *HR* Morphine 2 MG/ML SYRINGE IVP PRN ×4 (03:05→23:27)
[2017-03-12] MEDS: *HR* Enoxaparin 40 MG/0.4 ML SYRINGE SQ SCH (05:46)
[2017-03-12 06:09] LABS: Hemoglobin 10.7 g/dL (11.5-15.4); Mean Corpuscular HGB Conc 31.5 g/dL (31.6-35.5); Mean Corpuscular Hemoglobin 27.6 pg (28.0-33.3); Mean Corpuscular Volume 87.9 fL (83.0-100.0); Mean Platelet Volume 8.8 fL (9.4-12.4); Platelet Count 534 K/mcL (140-400); Red Blood Count 3.87 M/mcL (3.82-4.97); Red Cell Distribution Width 16.1 % (11.5-14.5)
[2017-03-12 06:23] LABS: Alanine Aminotransferase 37 Units/L (0-55); Albumin 2.5 g/dL (3.5-5.0); Alkaline Phosphatase 74 Units/L (38-126); Aspartate Amino Transferase 45 Units/L (5-34); BUN/Creatinine Ratio 11 (6-26); Blood Urea Nitrogen 8 mg/dL (7-20); Calcium 8.4 mg/dL (8.6-10.8); Carbon Dioxide 26 mEq/L (19-29); Chloride 109 mEq/L (98-109); Glucose 84 mg/dL (70-99); Osmolality,Calculated 286 (280-300); Potassium 4.2 mEq/L (3.5-4.5); Sodium 139 mEq/L (136-145); eGFR For African Americans > 60 (> 60); eGFR For Non-African Americans > 60 (> 60)
[2017-03-12 06:24] LABS: Albumin/Globulin Ratio 0.7 (1.1-2.2); Bilirubin,Total < 0.2 mg/dL (0.2-1.2); Globulin 3.5 g/dL (2.4-3.5)
--- NOTE | 2017-03-12 06:25 | Orthopedics Progress Note ---
Date of Encounter: 03/12/17 Time of Encounter: 06:24 Subjective Interval history: Patient seen this morning surgical plan reviewed questions answered surgery today. Objective Vital signs: Vital Signs Temp Pulse Resp BP Pulse Ox 03/12/17 03:06 98.1 F 68 16 113/66 99 03/11/17 23:00 98.3 F 68 15 110/74 100 03/11/17 20:00 98 03/11/17 19:06 98.1 F 67 16 109/60 98 03/11/17 15:27 97.9 F 63 16 116/76 99 03/11/17 10:09 98.3 F 58 16 109/67 99 03/11/17 06:25 98.1 F 56 16 107/72 98 Intake and Output 03/11/17 03/11/17 03/12/17 15:59 23:59 07:59 Intake Total 1128 / 1128 610 / 610 Output Total 550 / 550 300 / 300 1000 / 1000 Balance 578 / 578 310 / 310 -1000 / -1000 Intake: IV Fluids 628 / 628 250 / 250 0.9 % Sodium Chloride 1,000 ML 378 / 378 @ 125 mls/hr IVC .Q8H [facility] Rx#: [id number] Vancocin 1,000 MG In Dextrose 5 250 / 250 250 / 250 % 250 ML @ 167 mls/hr IVPB Q12H [facility] Rx#:[id number] Oral 500 / 500 360 / 360 Output: Urine 550 / 550 300 / 300 1000 / 1000 Other: Meal Lunch Dinner Percent of Meal Consumed 90% 75% # Voids 1 Weight 57.8 kg Blood Glucose* 77 84 Patient Weight 03/12/17 23:59 Weight 57.8 kg - Labs CBC & BMP: 03/12/17 05:49 03/11/17 04:52 Labs: Abnormal lab results Hgb 10.7 g/dL (11.5-15.4) L 03/12/17 05:49 Hct 34.0 % (35.3-44.9) L 03/12/17 05:49 MCH 27.6 pg (28.0-33.3) L 03/12/17 05:49 MCHC 31.5 g/dL (31.6-35.5) L 03/12/17 05:49 RDW 16.1 % (11.5-14.5) H 03/12/17 05:49 Plt Count 534 K/mcL (140-400) H 03/12/17 05:49 MPV 8.8 fL (9.4-12.4) L 03/12/17 05:49 ESR 54 mm/hr (0-15) H 03/10/17 18:25 Chloride 111 mEq/L (98-109) H 03/11/17 04:52 Calcium 8.3 mg/dL (8.6-10.8) L 03/11/17 04:52 C-Reactive Protein 14 mg/L (Less than 5) H 03/10/17 18:25 Ur Amphetamines Screen Positive ng/mL (Yubduw=[id number]) H 03/10/17 18:30 U Marijuana (THC) Screen Positive ng/mL (Cutoff = 50) H 03/10/17 18:30 Consult Discharge Plan - Plan Referrals: NONE,PCP [Primary Care Provider] -
--- NOTE | 2017-03-12 10:11 | Internal Med Progress Note ---
<Jennifer Guerra - Last Filed: 03/12/17 11:14> Date of Encounter: 03/12/17 Time of Encounter: 09:00 - Assessment and plan (1) Wound of right shoulder Current Visit: Yes Status: Acute Assessment and plan: Ms. Mcallister is a 31 year old female with PMH total right shoulder replacement with subsequent chronic, nonhealing wound and polysubstance abuse who presented to [facility] on 03/10/2017 with complaints of right shoulder pain and concern for right shoulder infection. She was admitted for orthopedic consultation. Patient has a history of a right total shoulder replacement secondary to a fall down stairs. Complicated by periprosthetic humerus fracture. Previously seen Ortho for a late developing infection in right arm (thought to be related to drug use at that time). Has been noncompliant with follow-up. Now with persistent drainage from right shoulder. -Evaluated by Ortho- to remove hardware today in OR with placement of cement spacer. -Will likely need long-term IV ATB's postoperatively which will require patient going to rehabilitation facility to avoid concerns of inappropriate use of PICC home. -Continue IV vanco day 3, as wound culture shows staph aureus. -Awaiting wound culture sensitivities. Qualifiers: Encounter type: sequela Qualified Code(s): S41.001S - Unspecified open wound of right shoulder, sequela (2) Polysubstance abuse Current Visit: Yes Status: Acute Assessment and plan: 2. Polysubstance abuse: per hx although patient denies. UDS positive for amphetamines and marijuana. Continue judicious pain control. (3) DVT prophylaxis Current Visit: Yes Status: Acute Assessment and plan: Lovenox (4) Tobacco abuse Current Visit: No Status: Chronic Assessment and plan: Patient does not want nicotine replacement therapy. (5) COPD (chronic obstructive pulmonary disease) Current Visit: Yes Status: Acute Assessment and plan: No exacerbation. Patient denies shortness of breath. Qualifiers: COPD type: unspecified COPD Qualified Code(s): J44.9 - Chronic obstructive pulmonary disease, unspecified - Subjective Interval history: Mrs. Cespedes is a 31-year-old female with past medical history of a total right shoulder replacement with subsequent chronic nonhealing, COPD, and polysubstance abuse who presented to [facility] on 09/27/ 2017 with complaints of right shoulder plain and obvious wound infection. She is scheduled for right shoulder removal of hardware status post septic right shoulder this morning. Patient has been nothing by mouth since midnight. This morning she is resting comfortably although she denies adequate pain control. She is asking for a stronger narcotic medicine. - Constitutional Vitals: Temp Pulse Resp BP Pulse Ox 97.9 F 72 16 108/68 96 03/12/17 07:42 03/12/17 07:42 03/12/17 07:42 03/12/17 07:42 03/12/17 07:42 General appearance: Present: A&O X 3, answers questions appropriately - Head Head exam: Present: atraumatic, normal inspection, normocephalic - Respiratory Respiratory exam: Present: CTAB. Absent: accessory muscle use, rales, rhonchi, wheezes - Cardiovascular Cardiovascular exam: Present: RRR, +S1, +S2. Absent: diastolic murmur, gallop, rubs, systolic murmur - GI/Abdominal GI/Abdominal exam: Present: normal bowel sounds, soft, no peritoneal signs. Absent: distended, tenderness - Extremities Exam Extremities exam: Present: radial pulses palpable and symmetrical. Absent: pedal edema Additional comments: Patient's right upper shoulder reveals a intact and dry bandage over the anterior aspect of her shoulder. No surrounding edema, fluctuance, or crepitance. No erythema or obvious purulent discharge surrounding the area of the bandage. - Psychiatric Psychiatric exam: Present: agitated, anxious Internal Medicine: Result - Labs CBC & Chem 7: 03/12/17 05:49 03/12/17 05:49 Labs: Short CBC 03/12/17 Range/Units 05:49 WBC 8.8 (4.3-11.1) K/mcL Hgb 10.7 L (11.5-15.4) g/dL Hct 34.0 L (35.3-44.9) % Plt Count 534 H (140-400) K/mcL BMP 03/12/17 05:49 Sodium 139 Potassium 4.2 Chloride 109 Carbon Dioxide 26 BUN 8 Creatinine 0.70 Glucose 84 Calcium 8.4 L Liver Function 03/12/17 Range/Units 05:49 Total Bilirubin < 0.2 L (0.2-1.2) mg/dL AST 45 H (5-34) Units/L ALT 37 (0-55) Units/L Alkaline Phosphatase 74 (38-126) Units/L Albumin 2.5 L (3.5-5.0) g/dL - Impressions Impressions Shoulder X-Ray 03/11/17 13:00 IMPRESSION: Status post right total shoulder arthroplasty and ORIF of the proximal right humerus without complication identified. D/ / Pierre López MD / Pierre López MD Interpreting Provider: Pierre López MD Consult Discharge Plan - Plan Referrals: NONE,PCP [Primary Care Provider] - <Garett Cardona H - Last Filed: 03/12/17 11:16> Date of Encounter: 03/12/17 - Constitutional Vitals: Temp Pulse Resp BP Pulse Ox 98.7 F 68 16 116/66 99 03/12/17 10:56 03/12/17 10:56 03/12/17 10:56 03/12/17 10:56 03/12/17 10:56 Internal Medicine: Result - Labs CBC & Chem 7: 03/12/17 05:49 03/12/17 05:49 Labs: Short CBC 03/12/17 Range/Units 05:49 WBC 8.8 (4.3-11.1) K/mcL Hgb 10.7 L (11.5-15.4) g/dL Hct 34.0 L (35.3-44.9) % Plt Count 534 H (140-400) K/mcL BMP 03/12/17 05:49 Sodium 139 Potassium 4.2 Chloride 109 Carbon Dioxide 26 BUN 8 Creatinine 0.70 Glucose 84 Calcium 8.4 L Liver Function 03/12/17 Range/Units 05:49 Total Bilirubin < 0.2 L (0.2-1.2) mg/dL AST 45 H (5-34) Units/L ALT 37 (0-55) Units/L Alkaline Phosphatase 74 (38-126) Units/L Albumin 2.5 L (3.5-5.0) g/dL - Impressions Impressions Shoulder X-Ray 03/11/17 13:00 IMPRESSION: Status post right total shoulder arthroplasty and ORIF of the proximal right humerus without complication identified. D/ / Pierre López MD / Pierre López MD Interpreting Provider: Pierre López MD - Attending Attestation OR today continue vanc I examined this patient and my medical decision-making was reviewed with the Resident Physician. I agree with the documented findings, disposition and treatment plan as described except to the extent set forth below.
[2017-03-12] MEDS: Vancomycin 1,000 MG in D5% in Water 250 ML IVPB SCH ×2 (10:59→20:11)
[2017-03-12] MEDS ORDERED: Ketorolac 15 MG/ML VIAL IVP ONE (11:03)
[2017-03-12] MEDS: Nicotine 21 MG PATCH.TD24 TD SCH (11:06)
[2017-03-12] MEDS: *HR* HYDROcodone/Acet 5/325 mg TABLET PO PRN ×3 (12:39→22:25)
[2017-03-12] MEDS ORDERED: *HR* Midazolam HCl 2 MG/2 ML VIAL ONE (16:09)
[2017-03-12] MEDS ORDERED: *HR* Rocuronium Bromide 50 MG/5 ML VIAL ONE (16:09)
[2017-03-12] MEDS ORDERED: Ketorolac 30 MG/ML VIAL ONE (16:09)
[2017-03-12] MEDS ORDERED: Lidocaine -MPF 2% 2 ML VIAL ONE (16:09)
[2017-03-12] MEDS ORDERED: *HR* FentaNYL (PF) 100 MCG/2 ML VIAL ONE ×2 (16:09→17:16)
[2017-03-12] MEDS ORDERED: Dexamethasone 4 MG/ML VIAL ONE ×2 (16:09→17:50)
[2017-03-12] MEDS ORDERED: *HR* Propofol 200 MG/20 ML VIAL IVP ONE ×2 (16:10→18:04)
[2017-03-12] MEDS ORDERED: Vancomycin 1,000 MG VIAL ONE (16:19)
[2017-03-12] MEDS ORDERED: 0.9 % Sodium Chloride 250 ML IVPB ONE ×2 (16:30→18:57)
[2017-03-12] MEDS ORDERED: *HR* Phenylephrine 10 MG/ML VIAL ONE (16:49)
[2017-03-12] MEDS ORDERED: EPHEDrine 50 MG/ML VIAL ONE (17:35)
[2017-03-12] MEDS ORDERED: *HR* Meperidine 25 MG/ML SYRINGE IVP PRN ×2 (17:48→18:57)
[2017-03-12] MEDS ORDERED: *HR* Promethazine 25 MG/ML VIAL IVP PRN ×2 (17:48→18:57)
[2017-03-12] MEDS ORDERED: Ondansetron 4 MG/2 ML VIAL ONE (17:50)
[2017-03-12] MEDS ORDERED: Neostigmine Methylsulfate 3 MG/3 ML SYRINGE ONE (17:55)
--- NOTE | 2017-03-12 18:14 | Orthopedic Operative Note ---
Date of procedure: 03/12/17 Pre-op diagnosis: Infected right total shoulder Post-op diagnosis: same Procedure: Procedure: Right shoulder open irrigation and debridement, hardware removal, sinus tract excision, removal of total shoulder replacement. Hardware: None Estimated blood loss: 500 mL Indication for surgery patient is a well-known patient to [facility] castillo , who underwent a total shoulder replacement had a subsequent fall sustaining a periprosthetic humerus fracture underwent open reduction internal fixation of fracture. Patient presented years later with a draining sinusThe patient was indicated for surgery never showed up for appointments no-show for surgery.The patient had a PICC line was noncompliant with IV antibiotics authorities were called out to the house to make sure picc line was removed. Patient presented with ER visit Wednesday and admitted indicated for surgery Dictation surgery. Patient brought to the operative placed on the operating table after general anesthesia was administered the right shoulder was examined patient had a granuloma in the upper third of the incision with a suture sitting in the middle of the granuloma. This is draining purulent material. The patient was placed in modified beachchair position. All pressure points were padded appropriately and the head was stabilized in this position the right upper extremity was prepped and draped in sterile surgical fashion patient received IV antibiotics prior skin incision. An elliptical incision was made around the old incision incision made through the skin and subcutaneous tissue. Hemostasis was obtained with Bovie cautery. Using careful blunt dissection the deltopectoral interval was developed. Sinus communicated down to the humeral joint. The suture was removed the area was irrigated with pulse irrigation. The deltoid was elevated up off the anterior lateral aspect of the humerus and the plate was exposed the plate was removed as well as all the screws. 2 super cables were removed as well. The humerus was then dislocated. The head was removed from the humeral component the trunnion was removed and osteotomes were used to try to loosen up the stem. Multiple attempts were made to the slap hammer to extract this but this was unsuccessful the proximal humerus was split with an oscillating saw helpfully of the prosthesis and the prosthesis was removed without incident. 2 FiberWire sutures were passed subperiosteally securing the osteotomy back in place. This gave good reduction. The glenoid component was loose and easily we removed. The shoulder was irrigated with 3 L of pulse irrigation. Extensive debridement was performed. The shoulder was irrigated with 1 L of antibacterial irrigation. It was then irrigated again with 3 L pulse irrigation after Betadine wash. An antibiotic cement spacer in the shape of a ball was placed in the humeral glenoid socket. The deltopectoral interval was closed deep with #2 PDS suture superficially with #1 PDS suture subcutaneous with Monocryl suture and skin was closed with skin leena. Patient was placed in a sterile dressing abducted sling extubated and transferred to recovery room in stable condition. Cultures were obtained and sent prior to the debridement. Anesthesia: KALPANA Surgeon: Nabeel Ragland Condition: stable Disposition: PACU
[2017-03-12] MEDS: *HR* HYDROmorphone (PF) 1 MG/ML SYRINGE IVP PRN ×4 (18:18→18:36)
--- NOTE | 2017-03-12 18:41 | Anesthesia Evaluation Post Op ---
Date of Encounter: 03/12/17 Time of Encounter: 18:40 - Vital Signs Vital Signs: Vital Signs/O2 Sat, Most Current Temp Pulse Resp BP Pulse Ox 97.2 F L 70 12 136/86 96 03/12/17 18:13 03/12/17 18:33 03/12/17 18:33 03/12/17 18:33 03/12/17 18:33 - Lungs Lungs: Clear Ascult./Percussion - Airway Airway: Non-obstructed - Cardiovascular Regular Rate - Mental Status Mental Status: Alert & Oriented, Answers Appropriately - Pain Pain Scale: 0 (sleeping) Pain Scale used: Numeric (1 - 10) - Nausea Vomiting Nausea Vomiting: Not Present - Hydration Hydration: NPO, Has not voided - Discharge PostOp Status: Transfer Patient to floor
[2017-03-12 18:43] LABS: Hematocrit 32.9 % (35.3-44.9); Hemoglobin 10.1 g/dL (11.5-15.4)
[2017-03-12] MEDS ORDERED: Sennosides 8.6 MG TABLET PO PRN (18:57)
[2017-03-12] MEDS ORDERED: Temazepam 15 MG CAPSULE PO PRN (18:57)
[2017-03-12] MEDS ORDERED: Albuterol 2.5 MG/3 ML NEBULIZER IH PRN (18:57)
[2017-03-12] MEDS ORDERED: *HR* HYDROmorphone (PF) 1 MG/ML SYRINGE IVP PRN (18:57)
[2017-03-12] MEDS ORDERED: Naloxone 0.4 MG/ML INJ IVP PRN (18:57)
[2017-03-12] MEDS ORDERED: Acetaminophen 325 MG TABLET PO PRN (18:57)
[2017-03-12] MEDS ORDERED: Ondansetron 4 MG/2 ML VIAL IVP PRN (18:57)
[2017-03-13] MEDS: Ringers Solution, Lactated 1,000 ML IVC SCH ×2 (01:58→15:54)
[2017-03-13 03:54] LABS: Hematocrit 29.3 % (35.3-44.9); Hemoglobin 9.5 g/dL (11.5-15.4)
[2017-03-13] MEDS: *HR* Morphine 2 MG/ML SYRINGE IVP PRN ×4 (04:34→18:17)
--- NOTE | 2017-03-13 08:25 | Internal Med Progress Note ---
<Francesca Oliva - Last Filed: 03/13/17 08:22> Date of Encounter: 03/13/17 Time of Encounter: 08:23 - Assessment and plan (1) Wound of right shoulder Current Visit: Yes Status: Acute Assessment and plan: [facility] total right shoulder replacement with subsequent chronic, nonhealing wound who presented on 03/10/2017 with complaints of right shoulder pain and concern for right shoulder infection. Patient has a history of a right total shoulder replacement secondary to a fall down stairs. Complicated by periprosthetic humerus fracture. Previously seen Ortho for a late developing infection in right arm (thought to be related to drug use at that time). Has been noncompliant with follow-up had persistent drainage from right shoulder. Post op day 1. S/P right shoulder open irrigation and debridement, hardware removal, sinus tract excision, removal of total shoulder replacement. Plan: wound culture resulted, sensitive to doxycycline. D/C vanco today, started doxycycline IV day 1 patient completed 3 days of vancomycin. -Will likely need long-term IV ATB's postoperatively which will require patient going to rehabilitation facility to avoid concerns of inappropriate use of PICC home. continue with pain control, added PRN toradol today. Qualifiers: Encounter type: sequela Qualified Code(s): S41.001S - Unspecified open wound of right shoulder, sequela (2) Polysubstance abuse Current Visit: Yes Status: Acute Assessment and plan: UDS positive for amphetamines and marijuana. Continue judicious pain control. lifestyle modifications advised. (3) Tobacco abuse Current Visit: No Status: Chronic Assessment and plan: smoking cessation advised. nicotine patch PRN. (4) COPD (chronic obstructive pulmonary disease) Current Visit: Yes Status: Acute Assessment and plan: not in acute exacerbation. continue albuterol. Qualifiers: COPD type: unspecified COPD Qualified Code(s): J44.9 - Chronic obstructive pulmonary disease, unspecified (5) DVT prophylaxis Current Visit: Yes Status: Acute Assessment and plan: epcd - Subjective Interval history: 31 year old female evaluated at bedside. patient denies nausea, vomiting, diarrhea, fever, chills, chest pain, shortness of breath. she is in a lot of pain from her surgery yesterday, but other than that she is doing well. - Constitutional Vitals: Temp Pulse Resp BP Pulse Ox 98.2 F 82 15 116/71 99 03/13/17 07:38 03/13/17 07:38 03/13/17 07:38 03/13/17 07:38 03/13/17 07:38 General appearance: Present: A&O X 3, pleasant, no acute distress, answers questions appropriately - Head Head exam: Present: atraumatic, normocephalic - Neck Neck exam general surgery: Present: supple, trachea midline - Respiratory Respiratory exam: Present: CTAB - Cardiovascular Cardiovascular exam: Present: RRR, +S1, +S2 - GI/Abdominal GI/Abdominal exam: Present: normal bowel sounds, soft. Absent: distended, tenderness - Extremities Exam Extremities exam: Absent: cyanotic, pedal edema Additional comments: right shoulder in sling and in a cast. - Neurological Exam Neurological exam: Present: alert, oriented X3, no focal deficits - Psychiatric Psychiatric exam: Present: normal affect, normal mood Internal Medicine: Result - Labs CBC & Chem 7: 03/13/17 03:01 03/12/17 05:49 Labs: Short CBC 03/12/17 03/13/17 Range/Units 18:31 03:01 Hgb 10.1 L 9.5 L (11.5-15.4) g/dL Hct 32.9 L 29.3 L (35.3-44.9) % - Impressions Impressions Shoulder X-Ray 03/12/17 18:03 IMPRESSION: Postoperative changes as detailed above. D/ / Willie Samayoa MD / Willie Samayoa MD Interpreting Provider: Willie Samayoa MD - VTE Documentation of Mechanical Device: Intermittent pneumatic compression device Consult Discharge Plan - Plan Referrals: NONE,PCP [Primary Care Provider] - <Garett Cardona H - Last Filed: 03/13/17 08:54> Date of Encounter: 03/13/17 - Constitutional Vitals: Temp Pulse Resp BP Pulse Ox 98.2 F 82 15 116/71 99 03/13/17 07:38 03/13/17 07:38 03/13/17 07:38 03/13/17 07:38 09/30/17 07:38 Internal Medicine: Result - Labs CBC & Chem 7: 03/13/17 03:01 03/12/17 05:49 Labs: Short CBC 03/12/17 03/13/17 Range/Units 18:31 03:01 Hgb 10.1 L 9.5 L (11.5-15.4) g/dL Hct 32.9 L 29.3 L (35.3-44.9) % - Impressions Impressions Shoulder X-Ray 03/12/17 18:03 IMPRESSION: Postoperative changes as detailed above. D/ / Willie Samayoa MD / Willie Samayoa MD Interpreting Provider: Willie Samayoa MD - Attending Attestation switch to doxycycline IV Toradol PRN monitor I examined this patient and my medical decision-making was reviewed with the Resident Physician. I agree with the documented findings, disposition and treatment plan as described except to the extent set forth below.
[2017-03-13] MEDS ORDERED: Aminoglycoside Consult 1 EACH MC ONE (08:27)
--- NOTE | 2017-03-13 08:33 | Orthopedics Progress Note ---
Date of Encounter: 03/13/17 Time of Encounter: 08:31 Subjective Interval history: S: Patient with expected postoperative pain to the right shoulder. No new complaints. O: Afebrile and vital signs are stable Dressing is clean, dry, and intact She is in a postoperative sling Neurovascularly intact in the right upper extremity A: Post-incision, drainage, irrigation, and debridement of the right shoulder with hardware removal and placement of antibiotic spacer P: Resume postoperative care Continue IV antibiotics per the primary team We will follow clinically Objective Vital signs: Vital Signs Temp Pulse Resp BP Pulse Ox 03/13/17 07:38 98.2 F 82 15 116/71 99 03/13/17 04:37 98.8 F 64 16 119/76 99 03/12/17 23:00 99.1 F 66 16 127/88 98 03/12/17 20:19 97.0 F L 75 18 116/76 99 03/12/17 19:30 97.9 F 78 20 125/77 100 03/12/17 19:04 97.8 F 91 24 145/94 100 03/12/17 18:43 97.8 F 69 12 133/84 97 03/12/17 18:33 70 12 136/86 96 03/12/17 18:23 77 20 127/77 98 03/12/17 18:13 97.2 F L 81 20 119/72 100 03/12/17 11:27 99 03/12/17 10:56 98.7 F 68 16 116/66 99 Intake and Output 03/12/17 03/13/17 03/13/17 23:59 07:59 15:59 Intake Total 0 / 0 0 / 0 Output Total 1800 / 1800 0 / 0 Balance -1800 / -1800 0 / 0 Intake: Oral 0 / 0 0 / 0 Output: Urine 1300 / 1300 0 / 0 Estimated Blood Loss 500 / 500 Other: Meal NPO Percent of Meal Consumed 0% # Voids 2 Weight 58.36 kg Patient Weight 03/13/17 23:59 Weight 58.36 kg - Labs CBC & BMP: 03/13/17 03:01 03/12/17 05:49 Labs: Abnormal lab results Hgb 9.5 g/dL (11.5-15.4) L 03/13/17 03:01 Hct 29.3 % (35.3-44.9) L 03/13/17 03:01 MCH 27.6 pg (28.0-33.3) L 03/12/17 05:49 MCHC 31.5 g/dL (31.6-35.5) L 03/12/17 05:49 RDW 16.1 % (11.5-14.5) H 03/12/17 05:49 Plt Count 534 K/mcL (140-400) H 03/12/17 05:49 MPV 8.8 fL (9.4-12.4) L 03/12/17 05:49 ESR 54 mm/hr (0-15) H 03/10/17 18:25 Calcium 8.4 mg/dL (8.6-10.8) L 03/12/17 05:49 Total Bilirubin < 0.2 mg/dL (0.2-1.2) L 03/12/17 05:49 AST 45 Units/L (5-34) H 03/12/17 05:49 C-Reactive Protein 14 mg/L (Less than 5) H 03/10/17 18:25 Albumin 2.5 g/dL (3.5-5.0) L 03/12/17 05:49 Albumin/Globulin Ratio 0.7 (1.1-2.2) L 03/12/17 05:49 Ur Amphetamines Screen Positive ng/mL ([id number]) H 03/10/17 18:30 U Marijuana (THC) Screen Positive ng/mL (Cutoff = 50) H 03/10/17 18:30 - VTE Documentation of Mechanical Device: Intermittent pneumatic compression device Consult Discharge Plan - Plan Referrals: NONE,PCP [Primary Care Provider] -
[2017-03-13] MEDS: Vancomycin 1,000 MG in D5% in Water 250 ML IVPB SCH (08:39)
[2017-03-13] MEDS: Nicotine 21 MG PATCH.TD24 TD SCH (08:40)
[2017-03-13] MEDS: Doxycycline 100 MG in 0.9 % Sodium Chloride Mini Bag 100 ML IVPB SCH ×2 (12:03→18:18)
[2017-03-13] MEDS: Ketorolac 30 MG/ML VIAL IVP PRN ×2 (12:03→22:44)
[2017-03-13] MEDS: *HR* HYDROcodone/Acet 5/325 mg TABLET PO PRN ×2 (15:52→20:11)
[2017-03-13] MEDS ORDERED: Doxycycline 100 MG in 0.9 % Sodium Chloride Mini Bag 100 ML IVPB SCH (18:00)
[2017-03-14] MEDS: *HR* Morphine 2 MG/ML SYRINGE IVP PRN ×5 (00:52→20:05)
[2017-03-14] MEDS: *HR* HYDROcodone/Acet 5/325 mg TABLET PO PRN ×4 (03:40→23:43)
[2017-03-14 03:46] LABS: Hematocrit 28.1 % (35.3-44.9); Hemoglobin 8.9 g/dL (11.5-15.4)
[2017-03-14 04:00] LABS: BUN/Creatinine Ratio 17 (6-26); Blood Urea Nitrogen 11 mg/dL (7-20); Calcium 8.8 mg/dL (8.6-10.8); Carbon Dioxide 27 mEq/L (19-29); Chloride 109 mEq/L (98-109); Glucose 107 mg/dL (70-99); Osmolality,Calculated 288 (280-300); Sodium 139 mEq/L (136-145); eGFR For African Americans > 60 (> 60); eGFR For Non-African Americans > 60 (> 60)
[2017-03-14] MEDS: Doxycycline 100 MG in 0.9 % Sodium Chloride Mini Bag 100 ML IVPB SCH ×2 (06:00→18:19)
[2017-03-14] MEDS: Nicotine 21 MG PATCH.TD24 TD SCH (09:04)
[2017-03-14] MEDS: Ketorolac 30 MG/ML VIAL IVP PRN ×2 (09:10→18:19)
--- NOTE | 2017-03-14 09:59 | Internal Med Progress Note ---
<Francesca Oliva - Last Filed: 03/14/17 09:47> Date of Encounter: 03/14/17 Time of Encounter: 09:47 - Assessment and plan (1) Wound of right shoulder Current Visit: Yes Status: Acute Assessment and plan: [facility] total right shoulder replacement with subsequent chronic, nonhealing wound who presented on 03/10/2017 with complaints of right shoulder pain and concern for right shoulder infection. Patient has a history of a right total shoulder replacement secondary to a fall down stairs. Complicated by periprosthetic humerus fracture. Previously seen Ortho for a late developing infection in right arm (thought to be related to drug use at that time). Has been noncompliant with follow-up had persistent drainage from right shoulder. Post op day 1. S/P right shoulder open irrigation and debridement, hardware removal, sinus tract excision, removal of total shoulder replacement. Plan: wound culture resulted, sensitive to doxycycline. D/C vanco today, started doxycycline IV day 2 patient completed 3 days of vancomycin. -Will likely need long-term IV ATB's postoperatively which will require patient going to rehabilitation facility to avoid concerns of inappropriate use of PICC home. continue with pain control. pending discharge placement, possible to [facility]. Qualifiers: Encounter type: sequela Qualified Code(s): S41.001S - Unspecified open wound of right shoulder, sequela (2) Anemia Current Visit: Yes Status: Acute Assessment and plan: likely acute blood loss anemia. Plan: continue to monitor H/H iron, B12, folate, ferritin pending for tomorrow. stool guiac pending. Qualifiers: Anemia type: unspecified type Qualified Code(s): D64.9 - Anemia, unspecified (3) Polysubstance abuse Current Visit: Yes Status: Acute Assessment and plan: UDS positive for amphetamines and marijuana. Continue judicious pain control. lifestyle modifications advised. (4) Tobacco abuse Current Visit: No Status: Chronic Assessment and plan: smoking cessation advised. nicotine patch PRN. (5) COPD (chronic obstructive pulmonary disease) Current Visit: Yes Status: Acute Assessment and plan: not in acute exacerbation. continue albuterol. Qualifiers: COPD type: unspecified COPD Qualified Code(s): J44.9 - Chronic obstructive pulmonary disease, unspecified (6) DVT prophylaxis Current Visit: Yes Status: Acute Assessment and plan: epcd - Subjective Interval history: 31 year old female evaluated at bedside. patient denies nausea, vomiting, diarrhea, fever, chills, chest pain, shortness of breath. she is in pain from her surgery yesterday, but other than that she is doing well. she has no new complaints. - Constitutional Vitals: Temp Pulse Resp BP Pulse Ox 98.1 F 80 20 120/71 100 03/14/17 00:00 03/14/17 00:00 03/14/17 00:00 03/14/17 00:00 03/14/17 00:00 General appearance: Present: A&O X 3, pleasant, no acute distress, answers questions appropriately - Head Head exam: Present: atraumatic, normocephalic - Neck Neck exam general surgery: Present: supple, trachea midline - Respiratory Respiratory exam: Present: CTAB - Cardiovascular Cardiovascular exam: Present: RRR, +S1, +S2 - GI/Abdominal GI/Abdominal exam: Present: normal bowel sounds, soft. Absent: distended, tenderness - Extremities Exam Extremities exam: Absent: cyanotic, pedal edema Additional comments: right shoulder casted and in a sling. - Neurological Exam Neurological exam: Present: alert, oriented X3, no focal deficits - Skin Skin exam: Present: intact Internal Medicine: Result - Labs CBC & Chem 7: 03/14/17 03:22 03/14/17 03:22 Labs: Short CBC 03/14/17 Range/Units 03:22 Hgb 8.9 L (11.5-15.4) g/dL Hct 28.1 L (35.3-44.9) % BMP 03/14/17 03:22 Sodium 139 Potassium 4.0 Chloride 109 Carbon Dioxide 27 BUN 11 Creatinine 0.65 Glucose 107 H Calcium 8.8 - VTE Documentation of Mechanical Device: Intermittent pneumatic compression device Consult Discharge Plan - Plan Referrals: NONE,PCP [Primary Care Provider] - <Garett Cardona H - Last Filed: 03/14/17 13:03> Date of Encounter: 03/14/17 - Constitutional Vitals: Temp Pulse Resp BP Pulse Ox 98.1 F 80 20 120/71 100 03/14/17 00:00 03/14/17 00:00 03/14/17 00:00 03/14/17 00:00 03/14/17 00:00 Internal Medicine: Result - Labs CBC & Chem 7: 03/14/17 03:22 03/14/17 03:22 Labs: Short CBC 03/14/17 Range/Units 03:22 Hgb 8.9 L (11.5-15.4) g/dL Hct 28.1 L (35.3-44.9) % BMP 03/14/17 03:22 Sodium 139 Potassium 4.0 Chloride 109 Carbon Dioxide 27 BUN 11 Creatinine 0.65 Glucose 107 H Calcium 8.8 - Attending Attestation Continue doxycycline, discharge planning possibly for tomorrow after placing paragliding I examined this patient and my medical decision-making was reviewed with the Resident Physician. I agree with the documented findings, disposition and treatment plan as described except to the extent set forth below.
--- NOTE | 2017-03-14 12:06 | Orthopedics Progress Note ---
Date of Encounter: 03/14/17 Time of Encounter: 12:05 Subjective Interval history: S: Patient with expected postoperative pain to the right shoulder. No new complaints. O: Afebrile and vital signs are stable Dressing is clean, dry, and intact She is in a postoperative sling Neurovascularly intact in the right upper extremity A: Post-incision, drainage, irrigation, and debridement of the right shoulder with hardware removal and placement of antibiotic spacer P: Resume postoperative care Continue IV antibiotics per the primary team We will follow clinically Objective Vital signs: Vital Signs Temp Pulse Resp BP Pulse Ox 03/14/17 00:00 98.1 F 80 20 120/71 100 03/13/17 21:09 98.3 F 81 17 123/75 100 03/13/17 16:08 98.4 F 80 17 121/74 99 03/13/17 13:35 113/66 Intake and Output 03/13/17 03/14/17 03/14/17 23:59 07:59 15:59 Intake Total 340 / 340 500 / 500 594 / 594 Balance 340 / 340 500 / 500 594 / 594 Intake: IV Fluids 100 / 100 100 / 100 Doxycycline 100 MG In 0.9 % 100 / 100 100 / 100 Sodium Chloride (Mini-Bag +) 100 ML @ 100 mls/hr IVPB Q12HR [facility] Rx#:[id number] Oral 240 / 240 400 / 400 594 / 594 Other: Meal Breakfast Percent of Meal Consumed 100% # Voids 1 1 1 Weight 58.5 kg Patient Weight 03/14/17 23:59 Weight 58.5 kg - Labs CBC & BMP: 03/14/17 03:22 03/14/17 03:22 Labs: Abnormal lab results Hgb 8.9 g/dL (11.5-15.4) L 03/14/17 03:22 Hct 28.1 % (35.3-44.9) L 03/14/17 03:22 MCH 27.6 pg (28.0-33.3) L 03/12/17 05:49 MCHC 31.5 g/dL (31.6-35.5) L 03/12/17 05:49 RDW 16.1 % (11.5-14.5) H 03/12/17 05:49 Plt Count 534 K/mcL (140-400) H 03/12/17 05:49 MPV 8.8 fL (9.4-12.4) L 03/12/17 05:49 ESR 54 mm/hr (0-15) H 03/10/17 18:25 Glucose 107 mg/dL (70-99) H 03/14/17 03:22 Total Bilirubin < 0.2 mg/dL (0.2-1.2) L 03/12/17 05:49 AST 45 Units/L (5-34) H 03/12/17 05:49 C-Reactive Protein 14 mg/L (Less than 5) H 03/10/17 18:25 Albumin 2.5 g/dL (3.5-5.0) L 03/12/17 05:49 Albumin/Globulin Ratio 0.7 (1.1-2.2) L 03/12/17 05:49 Ur Amphetamines Screen Positive ng/mL ([id number]) H 03/10/17 18:30 U Marijuana (THC) Screen Positive ng/mL (Cutoff = 50) H 03/10/17 18:30 - VTE Documentation of Mechanical Device: Intermittent pneumatic compression device Consult Discharge Plan - Plan Referrals: NONE,PCP [Primary Care Provider] -
--- NOTE | 2017-03-14 17:47 | Electrocardiograph Report ---
[address] [address] Test Date: 2017-03-12 Pat Name: Diana Mcallister Department: 114 Room: [facility] Gender: F Block Hand: : 1985 Requested By: Garett Cardona Order Number: [id number] Reading MD: Navjot Costello MD Measurements Intervals Perry Rate: 57 P: 50 FL: 104 QRS: 60 QRSD: 88 T: 22 QT: 426 QTc: 421 Interpretive Statements SINUS BRADYCARDIA WITH SHORT FL INTERVAL LOW QRS VOLTAGE IN PRECORDIAL LEADS Electronically Signed On 03-14-2017 17:45:56 EDT by Navjot Costello MD
[2017-03-15] MEDS: Ringers Solution, Lactated 1,000 ML IVC SCH ×2 (00:43→14:39)
[2017-03-15] MEDS: Ketorolac 30 MG/ML VIAL IVP PRN (00:47)
[2017-03-15] MEDS: *HR* Morphine 2 MG/ML SYRINGE IVP PRN ×5 (04:05→21:38)
[2017-03-15 05:24] LABS: Basophils # 0.1 K/mcL (0.0-0.2); Basophils % 0.6 %; Eosinophils # 0.3 K/mcL (0.0-0.6); Eosinophils % 3.4 %; Hemoglobin 8.9 g/dL (11.5-15.4); Immature Granulocytes % 0.4 % (0-4); Lymphocytes # 3.8 K/mcL (0.6-4.6); Lymphocytes % 38.4 %; Mean Corpuscular HGB Conc 31.8 g/dL (31.6-35.5); Mean Corpuscular Hemoglobin 27.9 pg (28.0-33.3); Mean Corpuscular Volume 87.8 fL (83.0-100.0); Mean Platelet Volume 8.8 fL (9.4-12.4); Monocytes # 0.7 K/mcL (0.0-1.3); Monocytes % 6.8 %; Platelet Count 515 K/mcL (140-400); Red Blood Count 3.19 M/mcL (3.82-4.97); Red Cell Distribution Width 16.6 % (11.5-14.5); Segmented Neutrophils % 50.4 %
[2017-03-15 05:40] LABS: BUN/Creatinine Ratio 19 (6-26); Blood Urea Nitrogen 12 mg/dL (7-20); Calcium 8.7 mg/dL (8.6-10.8); Carbon Dioxide 25 mEq/L (19-29); Chloride 106 mEq/L (98-109); Glucose 101 mg/dL (70-99); Osmolality,Calculated 286 (280-300); Potassium 3.7 mEq/L (3.5-4.5); Sodium 138 mEq/L (136-145); eGFR For African Americans > 60 (> 60); eGFR For Non-African Americans > 60 (> 60)
[2017-03-15 05:42] LABS: % Iron Saturation 15 % (15-50); Iron 37 mcg/dL (50-170); Transferrin 175 mg/dL (180-382)
[2017-03-15 06:02] LABS: Ferritin 72 ng/ml (5-204)
[2017-03-15 06:17] LABS: Folate 7.8 ng/mL (7.0-31.4)
--- NOTE | 2017-03-15 06:25 | Orthopedics Progress Note ---
Date of Encounter: 03/15/17 Time of Encounter: 06:25 Subjective Interval history: Patient was seen this morning doing well without complaints. Afebrile vital signs stable. Operative extremity: Neurovascularly intact Dressing clean dry and intact Calves nontender Assessment and plan: Continue with postoperative care Stable for discharge IV antibiotics 6 weeks Objective Vital signs: Vital Signs Temp Pulse Resp BP Pulse Ox 03/15/17 00:00 98.8 F 93 24 117/73 99 03/14/17 20:40 98.6 F 90 20 118/78 98 03/14/17 16:31 98.1 F 74 15 125/77 99 Intake and Output 03/14/17 03/14/17 03/15/17 15:59 23:59 07:59 Intake Total 594 / 594 500 / 500 240 / 240 Balance 594 / 594 500 / 500 240 / 240 Intake: Oral 594 / 594 500 / 500 240 / 240 Other: Meal Breakfast Percent of Meal Consumed 100% # Voids 1 1 2 - Labs CBC & BMP: 03/15/17 04:56 03/15/17 04:56 Labs: Abnormal lab results RBC 3.19 M/mcL (3.82-4.97) L 03/15/17 04:56 Hgb 8.9 g/dL (11.5-15.4) L 03/15/17 04:56 Hct 28.0 % (35.3-44.9) L 03/15/17 04:56 MCH 27.9 pg (28.0-33.3) L 03/15/17 04:56 RDW 16.6 % (11.5-14.5) H 03/15/17 04:56 Plt Count 515 K/mcL (140-400) H 03/15/17 04:56 MPV 8.8 fL (9.4-12.4) L 03/15/17 04:56 ESR 54 mm/hr (0-15) H 03/10/17 18:25 Glucose 101 mg/dL (70-99) H 03/15/17 04:56 Iron 37 mcg/dL (50-170) L 03/15/17 04:56 Transferrin 175 mg/dL (180-382) L 03/15/17 04:56 Total Bilirubin < 0.2 mg/dL (0.2-1.2) L 03/12/17 05:49 AST 45 Units/L (5-34) H 03/12/17 05:49 C-Reactive Protein 14 mg/L (Less than 5) H 03/10/17 18:25 Albumin 2.5 g/dL (3.5-5.0) L 03/12/17 05:49 Albumin/Globulin Ratio 0.7 (1.1-2.2) L 03/12/17 05:49 Ur Amphetamines Screen Positive ng/mL ([id number]) H 03/10/17 18:30 U Marijuana (THC) Screen Positive ng/mL (Cutoff = 50) H 03/10/17 18:30 - VTE Documentation of Mechanical Device: Intermittent pneumatic compression device Consult Discharge Plan - Plan Referrals: NONE,PCP [Primary Care Provider] -
[2017-03-15] MEDS: Doxycycline 100 MG in 0.9 % Sodium Chloride Mini Bag 100 ML IVPB SCH (06:44)
[2017-03-15] MEDS: *HR* HYDROcodone/Acet 5/325 mg TABLET PO PRN ×4 (06:48→19:55)
--- NOTE | 2017-03-15 08:46 | Internal Med Progress Note ---
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 Patient has a history of a right total shoulder replacement secondary to a fall down stairs. Complicated by periprosthetic humerus fracture. Previously seen Ortho for a late developing infection in right arm (thought to be related to drug use at that time). Has been noncompliant with follow-up had persistent drainage from right shoulder. Post op day 2. S/P right shoulder open irrigation and debridement, hardware removal, sinus tract excision, removal of total shoulder replacement. Plan: wound culture resulted, sensitive to doxycycline. Doxycycline IV day 3 patient completed 3 days of vancomycin. -Will likely need long-term IV ATB's postoperatively which will require patient going to rehabilitation facility to avoid concerns of inappropriate use of PICC home. continue with pain control. -Infectious Disease will see patient today as an inpatient to establish care for detention outpatient IV Abx management. pending discharge placement, complicated alf acceptance as patient is IVDA. Per social work, only [facility] will accept drug users as there is a lock down facility. If accepted, patient will be discharged home today. Qualifiers: Encounter type: sequela Qualified Code(s): S41.001S - Unspecified open wound of right shoulder, sequela (2) Polysubstance abuse Current Visit: Yes Status: Acute Assessment and plan: UDS positive for amphetamines and marijuana. Continue judicious pain control. lifestyle modifications advised. (3) DVT prophylaxis Current Visit: Yes Status: Acute Assessment and plan: epcd (4) Tobacco abuse Current Visit: No Status: Chronic Assessment and plan: smoking cessation advised. nicotine patch PRN. (5) COPD (chronic obstructive pulmonary disease) Current Visit: Yes Status: Acute Assessment and plan: not in acute exacerbation. continue albuterol. Qualifiers: COPD type: unspecified COPD Qualified Code(s): J44.9 - Chronic obstructive pulmonary disease, unspecified - Subjective Interval history: Mrs. Cespedes is a 31-year-old female with past medical history of a total right shoulder replacement with subsequent chronic nonhealing, COPD, and polysubstance abuse who presented to [facility] on 2016 with complaints of right shoulder plain and obvious wound infection. Patient has been sleeping well since surgery. She has no complaints this morning. She is agreeable to the plan for possible discharge today or tomorrow. - Constitutional Vitals: Temp Pulse Resp BP Pulse Ox 98.5 F 97 20 119/67 99 03/15/17 06:44 03/15/17 06:44 03/15/17 06:44 03/15/17 06:44 03/15/17 06:44 General appearance: Present: A&O X 3, pleasant, no acute distress, answers questions appropriately - Respiratory Respiratory exam: Present: CTAB. Absent: accessory muscle use, rales, rhonchi, wheezes - Cardiovascular Cardiovascular exam: Present: RRR, +S1, +S2. Absent: diastolic murmur, gallop, rubs, systolic murmur - GI/Abdominal GI/Abdominal exam: Present: normal bowel sounds, soft, no peritoneal signs. Absent: distended, tenderness - Extremities Exam Extremities exam: Present: warm, radial pulses palpable and symmetrical. Absent : calf tenderness, cyanotic, pedal edema - Other Additional findings: Did not visually inspect patients wound. No bandage surrounding erythema or tenderness. Internal Medicine: Result - Labs CBC & Chem 7: 03/15/17 04:56 03/15/17 04:56 Labs: Short CBC 03/15/17 Range/Units 04:56 WBC 9.9 (4.3-11.1) K/mcL Hgb 8.9 L (11.5-15.4) g/dL Hct 28.0 L (35.3-44.9) % Plt Count 515 H (140-400) K/mcL Neutrophils # 5.0 (1.6-8.9) K/mcL BMP 03/15/17 04:56 Sodium 138 Potassium 3.7 Chloride 106 Carbon Dioxide 25 BUN 12 Creatinine 0.62 Glucose 101 H Calcium 8.7 - VTE Documentation of Mechanical Device: Intermittent pneumatic compression device Consult Discharge Plan - Plan Additional Instructions: Please continue with IV doxycycline twice a day for 3 weeks. During this time is important that you follow-up with infectious disease for proper continuation of antibiotic therapy. It is very important that she take her antibiotics appropriately, as well as follow-up with infectious disease, specifically Tracy Osorio. Referrals: Tracy Osorio, SUSTAINABLE LANDSCAPE ARCHITECT [Advanced Practice Nurse] - NONE,PCP [Primary Care Provider] - Prescriptions: HYDROcodone/Acet 5/325 mg [[place] 5-325 mg] 1 tab PO Q4HR PRN #30 tablet PRN Reason: Moderate Pain (4-6) Doxycycline 100 mg IV BID 21 Days #42 vial <Garett Cardona H - Last Filed: 03/15/17 14:21> Date of Encounter: 03/15/17 - Constitutional Vitals: Temp Pulse Resp BP Pulse Ox 98.7 F 87 16 126/74 99 03/15/17 09:48 03/15/17 09:48 03/15/17 09:48 03/15/17 09:48 03/15/17 11:13 Internal Medicine: Result - Labs CBC & Chem 7: 03/15/17 04:56 03/15/17 04:56 Labs: Short CBC 03/15/17 Range/Units 04:56 WBC 9.9 (4.3-11.1) K/mcL Hgb 8.9 L (11.5-15.4) g/dL Hct 28.0 L (35.3-44.9) % Plt Count 515 H (140-400) K/mcL Neutrophils # 5.0 (1.6-8.9) K/mcL BMP 03/15/17 04:56 Sodium 138 Potassium 3.7 Chloride 106 Carbon Dioxide 25 BUN 12 Creatinine 0.62 Glucose 101 H Calcium 8.7 - Attending Attestation Right shoulder infected wound with Staphylococcus Continue IV doxycycline and follow up with ID as outpatient to complete a possible course of 6 weeks of antibiotics I examined this patient and my medical decision-making was reviewed with the Resident Physician. I agree with the documented findings, disposition and treatment plan as described except to the extent set forth below.
[2017-03-15] MEDS ORDERED: Lidocaine -MPF 1% 5 ML AMPUL INFILT ONE (09:24)
[2017-03-15] MEDS ORDERED: Lidocaine -MPF 1% 2 ML VIAL INFILT ONE (09:45)
[2017-03-15] MEDS: Nicotine 21 MG PATCH.TD24 TD SCH (11:02)
--- NOTE | 2017-03-15 13:55 | Discharge Summary ---
<Jennfier Guerra H - Last Filed: 03/15/17 14:18> Date of Encounter: 03/15/17 Time of Encounter: 13:47 - Discharge Diagnosis (1) Wound of right shoulder Priority: Primary Status: Acute (2) Polysubstance abuse Priority: Secondary Status: Acute (3) DVT prophylaxis Priority: Secondary Status: Acute (4) Tobacco abuse Priority: Secondary Status: Chronic (5) COPD (chronic obstructive pulmonary disease) Priority: Secondary Status: Acute - Discharge Medications Prescriptions: HYDROcodone/Acet 5/325 mg [[place] 5-325 mg] 1 tab PO Q4HR PRN #30 tablet PRN Reason: Moderate Pain (4-6) Doxycycline 100 mg IV BID 21 Days #42 vial Home Medications: Naproxen [Naprosyn] 500 mg PO BID 03/10/17 [History] Tramadol HCl [Ultram] 50 mg PO Q6-8H PRN 03/10/17 [History] Acetaminophen [Tylenol] 650 mg PO Q6HR PRN tablet 03/15/17 [Rx] Docusate [Colace] 100 mg PO BID capsule 03/15/17 [Rx] Doxycycline 100 mg IV BID 21 Days #42 vial 03/15/17 [Rx] HYDROcodone/Acet 5/325 mg [[place] 5-325 mg] 1 tab PO Q4HR PRN #30 tablet [Rx] Ketorolac [Toradol] 30 mg IVP Q6HR PRN vial 03/15/17 [Rx] MOM Conc [MILK OF MAGNESIA conc] 5 ml PO HS PRN ud.liq 03/15/17 [Rx] Nicotine Patch [Nicoderm] 21 mg TD DAILY patch.td24 03/15/17 [Rx] Ondansetron [Zofran] 4 mg IVP Q8HR PRN vial 03/15/17 [Rx] Allergies/Adverse Reactions: 3 Allergy/AdvReac Type Severity Reaction Status Date / Time clindamycin AdvReac Swelling Verified 03/10/17 18:30 of the Eye Penicillins AdvReac Hives Verified 03/10/17 18:30 Procedures/tests Complete & Pending: Procedures Performed prior 72 hours Category Date Time Status ECG 12 lead ECG [ECG] Routine Y 03/12/17 14:54 Completed Date of admission: 03/10/17 20:35 Primary care physician: PCP NONE Consults: 03/12/17 18:57 Consult to Occupational Therapy [CONS] Routine Comment: post shoulder surgery Reason for Consult: post shoulder surgery Consult to Physical Therapy [CONS] Routine Comment: post shoulder surgery Reason for Consult: post shoulder surgery RT Post Op Consult [CONS] Routine 03/15/17 08:42 Consult to Infectious Diseases [CONS] Stat Consulting Provider: Infectious Disease [place] Reason for Consult: IV antibtioic management on outpatient basis Call Completed: Yes 03/15/17 09:24 Consult to Invasive Line Access Team [CONS] Routine Reason for Consult: Picc Line Insertion Line Type: PICC PICC line indications: termite control technician Med/Antibiotic - Patient Status Disposition: Transfer SNF Condition: Fair Functional capacity at discharge: independent ambulation Overall status at discharge: patient is progressing back to baseline - Discharge Instructions Follow Up With: NONE,PCP [Primary Care Provider] - Tracy Osorio, SHIPPING MANAGER [Advanced Practice Nurse] - Additional Instructions: Please continue with IV doxycycline twice a day for 3 weeks. During this time is important that you follow-up with infectious disease for proper continuation of antibiotic therapy. It is very important that she take her antibiotics appropriately, as well as follow-up with infectious disease, specifically Tracy Osorio. - Diet and Activity Activity: as per physical therapy, increase activity as tolerated Diet: advance to your usual diet Hospital course: Mrs. Mcallister is a 31-year-old female with past medical history of asthma, tobacco use, and IV drug use. She presented to the emergency department on with a right shoulder wound. Per patient she had a total right shoulder replacement with revision a year ago secondary to a fall. Patient was noncompliant with follow-up appointments, and she developed a surgical site infection. Upon admission, patient states urine drug screen was positive for amphetamines and marijuana. According to her medical record, she had a PICC line started this past October for IV antibiotic administration. Patient was noncompliant with these medications and follow-up, and her wound worsened significantly. There were concerns that patient was using drugs through her PICC line, thus forcing authorities to go to her house. Upon arrival to the hospital, there was purulent mucus, pain, redness, and a suture coming out of the wound. Patient's wound cultures grew Staphylococcus aureus. Patient was started on IV antibiotics including vancomycin while sensitivities were pending. Orthopedic surgery was consulted and took her to the OR for removal of hardware and shoulder with placement of a cement spacer. Patient did well during her surgery. Wound culture showed sensitivity to doxycycline. Patient completed 3 days of vancomycin before having it canceled. She was started on IV doxycycline. Patient's hospital course was complicated by trying to find an appropriate rehabilitation facility as she would need long-term IV antibiotic administration. Per social work, due to patient's IV drug use history, she was denied at many nursing facilities. There was one nursing facility at [place] in [place] which did have a lockdown facility. Patient was agreeable to go to this facility. Patient is being discharged home with a 3 week supply of twice daily IV doxycycline. Patient needs to follow-up with infectious diseases within these 3 weeks. This was communicated to the patient, and she expressed understanding. All questions were answered. - Time Spent with Patient Total time spent providing and/or coordinating discharge services: Greater than 30 minutes (40 minutes) - Constitutional Vitals: Temp Pulse Resp BP Pulse Ox 98.7 F 87 16 126/74 99 03/15/17 09:48 03/15/17 09:48 03/15/17 09:48 03/15/17 09:48 03/15/17 11:13 General appearance: Present: A&O X 3, pleasant, no acute distress, answers questions appropriately - Respiratory Respiratory exam: Present: CTAB. Absent: accessory muscle use, rales, rhonchi, wheezes - Cardiovascular Cardiovascular exam: Present: RRR, +S1, +S2. Absent: diastolic murmur, gallop, rubs, systolic murmur - GI/Abdominal GI/Abdominal exam: Present: normal bowel sounds, soft, no peritoneal signs. Absent: distended, tenderness - Extremities Exam Extremities exam: Present: warm, radial pulses palpable and symmetrical. Absent : calf tenderness, cyanotic, pedal edema - VTE Documentation of Mechanical Device: Intermittent pneumatic compression device <Garett Cardona - Last Filed: 03/15/17 14:21> Date of Encounter: 03/15/17 Procedures/tests Complete & Pending: Procedures Performed prior 72 hours Category Date Time Status ECG 12 lead ECG [ECG] Routine Y 03/12/17 14:54 Completed Date of admission: 03/10/17 20:35 Primary care physician: PCP NONE Consults: 03/12/17 18:57 Consult to Occupational Therapy [CONS] Routine Comment: post shoulder surgery Reason for Consult: post shoulder surgery Consult to Physical Therapy [CONS] Routine Comment: post shoulder surgery Reason for Consult: post shoulder surgery RT Post Op Consult [CONS] Routine 03/15/17 08:42 Consult to Infectious Diseases [CONS] Stat Consulting Provider: Infectious Disease [place] Reason for Consult: IV antibtioic management on outpatient basis Call Completed: Yes 03/15/17 09:24 Consult to Invasive Line Access Team [CONS] Routine Reason for Consult: Picc Line Insertion Line Type: PICC PICC line indications: group home Med/Antibiotic Hospital course: Ms. Mcallister is a 31 year old female - Time Spent with Patient Total time spent providing and/or coordinating discharge services: - Constitutional Vitals: Temp Pulse Resp BP Pulse Ox 98.7 F 87 16 126/74 99 03/15/17 09:48 03/15/17 09:48 03/15/17 09:48 03/15/17 09:48 03/15/17 11:13 - Attending Attestation Right shoulder infected wound with Staphylococcus Continue IV doxycycline and follow up with ID as outpatient to complete a possible course of 6 weeks of antibiotics I examined this patient and my medical decision-making was reviewed with the Resident Physician. I agree with the documented findings, disposition and treatment plan as described except to the extent set forth below.
--- NOTE | 2017-03-15 13:56 | Infectious Disease Consult ---
Date of Encounter: 03/15/17 Time of Encounter: 13:54 Assessment and Plan (1) Leukocytosis Status: Acute Assessment and plan: Likely secondary to right shoulder infection. Resolved. Qualifiers: Leukocytosis type: other Qualified Code(s): D72.828 - Other elevated white blood cell count (2) Prosthetic joint infection Status: Acute Assessment and plan: Location: Right shoulder. Causative organism MSSA. Secondary to right shoulder surgical wound infection. ESR 54, CRP 14. Ortho consulted and following. Status post right shoulder open I & D, hardware removal, sinus tract excision, and removal of total shoulder hardware 03/12/[address] Ragland. Intra-operative report reviewed. Sinus tract noted down to the hardware. Cement spacer placed. The patient's PCN allergy limits our potential antibiotic choices. Additionally , the patient had a possible reaction to the cefepime at the beginning of her hospital stay. Discontinue doxycycline. Start Vancomycin IV. Pharmacy to dose. Goal trough ~15. Duration of treatment depends on the clinical picture, but likely 6 weeks of IV antibiotics. The patient has a history of non-compliance in the past. I had a discussion with the patient regarding the importance of compliance with the treatment regimen, risks/benefits/alternatives of IV antibiotic therapy, and patient/provider expectations during her course of treatment. She verbalizes understanding and is in agreement to proceed with long-term IV antibiotic therapy. technical services coordinator consulted and following to assist with discharge planning. Recommend the patient be placed at an ECF to ensure compliance with medication regimen and avoid concern for misuse of PICC line. Monitor renal function and for drug toxicity and dose-adjust antibiotics. Qualifiers: Encounter type: initial encounter Qualified Code(s): T84.50XA - Infection and inflammatory reaction due to unspecified internal joint prosthesis, initial encounter (3) Anemia Status: Acute Assessment and plan: Hgb down to 8.9 from 12.3 on admission. Likely multifactorial: operative blood loss + hemodilution. No active bleeding noted on exam. Further workup and management per the primary team. Qualifiers: Anemia type: unspecified type Qualified Code(s): D64.9 - Anemia, unspecified (4) Polysubstance abuse Status: Acute Assessment and plan: Patient reports last IVDU 2 weeks ago. Check HIV and Hepatitis profile. Infectious Disease HPI - Data of Consult Patient: new to practice Consult date: 03/15/17 Requesting Physician: Garett Cardona Primary Care Provider: PCP NONE - Consult Narrative Reason for consult: Right shoulder PJI History of present illness: Ms. Mcallister is a 31 year old female past medical history of COPD, PTSD, and anxiety. The patient was admitted to the hospital March 10 for right shoulder infection. We're consulted on March 15 for further recommendations regarding right shoulder prosthetic joint infection. The patient is a 31-year-old female with past medical history as stated above. The patient presented to the emergency department with complaints of severe right shoulder pain and an exposed suture. She states she's been seen by an outside hospital 2 days prior was placed on Bactrim. The patient has had a recurrent right shoulder infection since September of this year. She was previously treated with a 3 week course of IV vancomycin, but due to compliance issues, the PICC line was removed and antibiotic therapy was discontinued. Upon arrival , the patient was afebrile and hemodynamically stable. Her white blood cell count was elevated at 13,000 with neutrophilic predominance. Her ESR was 54 and a CRP was 14. Urine drug screen was obtained and came back positive for amphetamines and THC. A superficial wound culture [facility] and came back positive for MSSA. The patient was started on IV vancomycin and IV cefepime. The patient developed a rash shortly after receiving the antibiotics and it was thought that this was likely due to the cefepime given that the patient does have a documented history of allergy to penicillins. Cefepime was continued and the patient was treated with just vancomycin due to her cultures growing out MSSA. Appendix was consulted and took the patient to the operating room on March 12 and completed a right shoulder open I&D with hardware removal, sinus tract excision, and removal of the total shoulder replacement. Intraoperative culture was obtained and was positive for MSSA. There was a sinus tract noted that went all the way down to the hardware. In surgery, the patient has remained hemodynamically stable and afebrile. Her white blood cell count has normalized. She was treated with 2 days of IV vancomycin and was transitioned to IV doxycycline. We've been asked to evaluate and make further recommendations. During my exam today, the patient states that her only complaint is right shoulder pain. Report some green drainage from the surgical incision and states that the shoulder was very painful and swollen, but not erythematous or warm to the touch. She states she is not having any known fevers or chills or rigors prior to admission. She denies any headache or neck pain. She denies congestion , earache, or sore throat. She denies any chest pain, shortness of breath, or cough. She denies a nausea, vomiting, diarrhea, or constipation. She denies any abdominal pain, but she does report a poor appetite prior to admission. She states that since her surgery her appetite has picked back up. She denies pain in her back or other extremities. She does admit to me that she has used IV methamphetamines a couple of weeks ago. She states she has not shared needles and has no known history of hepatitis or HIV. CC: Garett Cardona Past Med Surg Social Fam HX - Past Medical History Attestation: Yes The following information was validated with the patient. Source: patient, old records reviewed, nursing notes reviewed Medical history: COPD Psychiatric history: anxiety, PTSD - Past Surgical History Surgical History: orthopedic, other (Right total shoulder replacement 2014, right shoulder revision 2015, tonsillectomy), sinus surgery - Social History Smoking Status: Current every day smoker Packs per day: 1 Smokeless Tobacco Status: No Alcohol use: none Drug use: IV Drug Use (Methamphetamines 2 weeks ago) Occupational status: unemployed Current living situation: Home - Independent Activity Level: Independent ambulation Recent Out of Country Travel Within the Last 8 Weeks: No Exposure or Possible Exposure to Illness During Travel: No - Family History Father Living Status: Still Living Hx Family Cardiac Disorders: Yes (Enlarged heart, HTN) Mother Living Status: Still Living Hx Family Cardiac Disorders: Yes (Unknown specific dx) Hx Family Respiratory Disorders: Yes (COPD) Infectious Disease-CN:Meds Naproxen [Naprosyn] 500 mg PO BID 03/10/17 [History] Tramadol HCl [Ultram] 50 mg PO Q6-8H PRN 03/10/17 [History] Acetaminophen [Tylenol] 650 mg PO Q6HR PRN tablet 03/15/17 [Rx] Docusate [Colace] 100 mg PO BID capsule 03/15/17 [Rx] HYDROcodone/Acet 5/325 mg [[place] 5-325 mg] 1 tab PO Q4HR PRN #30 tablet [Rx] Ketorolac [Toradol] 30 mg IVP Q6HR PRN vial 03/15/17 [Rx] MOM Conc [MILK OF MAGNESIA conc] 5 ml PO HS PRN ud.liq 03/15/17 [Rx] Nicotine Patch [Nicoderm] 21 mg TD DAILY patch.td24 03/15/17 [Rx] Ondansetron [Zofran] 4 mg IVP Q8HR PRN vial 03/15/17 [Rx] Vancomycin [Vancocin (wt based)] 1,000 mg IV BID 42 Days #84 vial 03/15/17 [Rx] 3 Allergy/AdvReac Type Severity Reaction Status Date / Time clindamycin AdvReac Swelling Verified 03/10/17 18:30 of the Eye Penicillins AdvReac Hives Verified 03/10/17 18:30 All systems: reviewed and no additional remarkable complaints except as stated Exam - Constitutional Vitals: Temp Pulse Resp BP Pulse Ox 98.7 F 87 16 126/74 99 03/15/17 09:48 03/15/17 09:48 03/15/17 09:48 03/15/17 09:48 03/15/17 11:13 General appearance: average body habitus, cooperative, no acute distress - Head Head exam: Present: atraumatic, normal inspection, normocephalic - Eye Eye exam: Present: EOMI, normal appearance, PERRL Pupils: Present: normal accommodation - ENT ENT exam: Present: mucous membranes moist - Neck Neck exam: Present: normal inspection - Respiratory Respiratory exam: Present: CTAB. Absent: rales, respiratory distress, rhonchi, wheezes - Cardiovascular Cardiovascular exam: Present: RRR, +S1, +S2 - GI/Abdominal GI/Abdominal exam: Present: normal bowel sounds, soft. Absent: distended, tenderness - Extremities Exam Extremities exam: Present: joint swelling (right shoulder), tenderness (right shoulder). Absent: pedal edema - Expanded Upper Extremity Exam Shoulder exam: Present: swelling, tenderness - Neurological Exam Neurological exam: Present: alert, oriented X3, no focal deficits - Psychiatric Psychiatric exam: Present: normal affect, normal mood - Skin Skin exam: Present: dry, intact, normal color, warm Infectious Disease CN: Results - Labs CBC & Chem 7: 03/16/17 04:00 03/16/17 04:00 Cultures: Cultures 03/12/17 17:07 Wound Culture - Final Right Shoulder Staphylococcus aureus 03/12/17 17:07 Gram Stain - Final Right Shoulder - VTE Documentation of Mechanical Device: Intermittent pneumatic compression device Consult Discharge Plan - Plan Additional Instructions: Please continue with IV doxycycline twice a day for 3 weeks. During this time is important that you follow-up with infectious disease for proper continuation of antibiotic therapy. It is very important that she take her antibiotics appropriately, as well as follow-up with infectious disease, specifically Tracy Osorio. Referrals: Tracy Osorio, DIE STORAGE WORKER [Advanced Practice Nurse] - NONE,PCP [Primary Care Provider] - Prescriptions: HYDROcodone/Acet 5/325 mg [[place] 5-325 mg] 1 tab PO Q4HR PRN #30 tablet PRN Reason: Moderate Pain (4-6) Vancomycin [Vancocin (wt based)] 1,000 mg IV BID 42 Days #84 vial
[2017-03-15] MEDS ORDERED: Vancomycin 1,000 MG in D5% in Water 250 ML IVPB SCH (14:00)
--- NOTE | 2017-03-15 14:25 | Physician Discharge Referral ---
ExtendedCare Referral Info Transfer To: [facility] - Diagnosis (1) Wound of right shoulder Priority: Primary Status: Acute (2) Polysubstance abuse Priority: Secondary Status: Acute (3) DVT prophylaxis Priority: Secondary Status: Acute (4) Tobacco abuse Priority: Secondary Status: Chronic (5) COPD (chronic obstructive pulmonary disease) Priority: Secondary Status: Acute - Transfer Medications Prescriptions: HYDROcodone/Acet 5/325 mg [[place] 5-325 mg] 1 tab PO Q4HR PRN #30 tablet PRN Reason: Moderate Pain (4-6) Doxycycline 100 mg IV BID 21 Days #42 vial Home Medications: Naproxen [Naprosyn] 500 mg PO BID 03/10/17 [History] Tramadol HCl [Ultram] 50 mg PO Q6-8H PRN 03/10/17 [History] Acetaminophen [Tylenol] 650 mg PO Q6HR PRN tablet 03/15/17 [Rx] Docusate [Colace] 100 mg PO BID capsule 03/15/17 [Rx] Doxycycline 100 mg IV BID 21 Days #42 vial 03/15/17 [Rx] HYDROcodone/Acet 5/325 mg [[place] 5-325 mg] 1 tab PO Q4HR PRN #30 tablet [Rx] Ketorolac [Toradol] 30 mg IVP Q6HR PRN vial 03/15/17 [Rx] MOM Conc [MILK OF MAGNESIA conc] 5 ml PO HS PRN ud.liq 03/15/17 [Rx] Nicotine Patch [Nicoderm] 21 mg TD DAILY patch.td24 03/15/17 [Rx] Ondansetron [Zofran] 4 mg IVP Q8HR PRN vial 03/15/17 [Rx] Allergies/Adverse Reactions: 3 Allergy/AdvReac Type Severity Reaction Status Date / Time clindamycin AdvReac Swelling Verified 03/10/17 18:30 of the Eye Penicillins AdvReac Hives Verified 03/10/17 18:30 - Respiratory Orders None Smoking Cessation: Smoking cessation has been advised. For more information, call the [place] Tobacco Quit Line at 5-034-VNDF-NOW. - Advance Directives Living Will: No Power of Industrial Cleaner: No Code Status: Full Code - Mobility Orders Ambulate - Rehabiliation Orders Rehab Potential: Good Rehab Orders: ROM Exercises, Evaluation for Physical Therapy, Evaluation for Occupational Therapy - Diet Orders Regular CERTIFICATION: I certify that the transfer of the above named patient to an Extended Care Facility is necessary for the continuing treatment of the diagnosis listed. The above information is true and accurate reflection of patient's current condition. Confidential - Redisclosure prohibited without a patient's written consent.
[2017-03-15] MEDS: Vancomycin 1,000 MG in D5% in Water 250 ML IVPB SCH (15:38)
[2017-03-15] MEDS: MOM Conc 10 ML UD.LIQ PO PRN (17:33)
[2017-03-16] MEDS: *HR* HYDROcodone/Acet 5/325 mg TABLET PO PRN ×6 (01:15→22:26)
[2017-03-16] MEDS: *HR* Morphine 2 MG/ML SYRINGE IVP PRN ×6 (02:58→23:36)
[2017-03-16] MEDS: Vancomycin 1,000 MG in D5% in Water 250 ML IVPB SCH ×2 (04:01→15:37)
[2017-03-16 04:36] LABS: Basophils # 0.1 K/mcL (0.0-0.2); Basophils % 0.6 %; Eosinophils # 0.4 K/mcL (0.0-0.6); Eosinophils % 4.4 %; Hematocrit 26.4 % (35.3-44.9); Hemoglobin 8.3 g/dL (11.5-15.4); Immature Granulocytes % 0.4 % (0-4); Lymphocytes # 3.1 K/mcL (0.6-4.6); Lymphocytes % 37.7 %; Mean Corpuscular HGB Conc 31.4 g/dL (31.6-35.5); Mean Corpuscular Hemoglobin 27.6 pg (28.0-33.3); Mean Corpuscular Volume 87.7 fL (83.0-100.0); Mean Platelet Volume 8.8 fL (9.4-12.4); Monocytes # 0.6 K/mcL (0.0-1.3); Monocytes % 7.8 %; Platelet Count 504 K/mcL (140-400); Red Blood Count 3.01 M/mcL (3.82-4.97); Red Cell Distribution Width 16.5 % (11.5-14.5); Segmented Neutrophils % 49.1 %
[2017-03-16 04:57] LABS: BUN/Creatinine Ratio 20 (6-26); Blood Urea Nitrogen 12 mg/dL (7-20); Calcium 8.8 mg/dL (8.6-10.8); Carbon Dioxide 27 mEq/L (19-29); Chloride 105 mEq/L (98-109); Glucose 101 mg/dL (70-99); Osmolality,Calculated 286 (280-300); Potassium 3.8 mEq/L (3.5-4.5); Sodium 138 mEq/L (136-145); eGFR For African Americans > 60 (> 60); eGFR For Non-African Americans > 60 (> 60)
[2017-03-16] MEDS: Ringers Solution, Lactated 1,000 ML IVC SCH ×2 (06:51→21:57)
--- NOTE | 2017-03-16 09:20 | Internal Med Progress Note ---
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 Patient has a history of a right total shoulder replacement secondary to a fall down stairs. Complicated by periprosthetic humerus fracture. Previously seen Ortho for a late developing infection in right arm (thought to be related to drug use at that time). Has been noncompliant with follow-up had persistent drainage from right shoulder. Post op day 3. S/P right shoulder open irrigation and debridement, hardware removal, sinus tract excision, removal of total shoulder replacement. Infectious diseases recommended to discontinue doxycycline at 32 vancomyci was restarted, day 2, continue for 6 weeks -Will likely need long-term IV ATB's postoperatively which will require patient going to rehabilitation facility to avoid concerns of inappropriate use of PICC home. continue with pain control. -Infectious Disease will see patient today as an inpatient to establish care for retirement outpatient IV Abx management. pending discharge placement, complicated assisted acceptance as patient is IVDA. Per social work, only [facility] will accept drug users as there is a lock down facility. If accepted, patient will be discharged home today. Qualifiers: Encounter type: sequela Qualified Code(s): S41.001S - Unspecified open wound of right shoulder, sequela (2) Polysubstance abuse Current Visit: Yes Status: Acute Assessment and plan: UDS positive for amphetamines and marijuana. Continue judicious pain control. lifestyle modifications advised. (3) DVT prophylaxis Current Visit: Yes Status: Acute Assessment and plan: epcd (4) Tobacco abuse Current Visit: No Status: Chronic Assessment and plan: smoking cessation advised. nicotine patch PRN. (5) COPD (chronic obstructive pulmonary disease) Current Visit: Yes Status: Acute Assessment and plan: not in acute exacerbation. continue albuterol. Qualifiers: COPD type: unspecified COPD Qualified Code(s): J44.9 - Chronic obstructive pulmonary disease, unspecified - Subjective Interval history: Mrs. Cespedes is a 31-year-old female with past medical history of a total right shoulder replacement with subsequent chronic nonhealing, COPD, and polysubstance abuse who presented to [facility] on 2016 with complaints of right shoulder plain and obvious wound infection. Patient has been sleeping well since surgery. She has no complaints this morning. She is agreeable to the plan for possible discharge today. - Constitutional General appearance: Present: A&O X 3, pleasant, no acute distress, answers questions appropriately - Respiratory Respiratory exam: Present: CTAB. Absent: accessory muscle use, rales, rhonchi, wheezes - Cardiovascular Cardiovascular exam: Present: RRR, +S1, +S2. Absent: diastolic murmur, gallop, rubs, systolic murmur - GI/Abdominal GI/Abdominal exam: Present: normal bowel sounds, soft, no peritoneal signs. Absent: distended, tenderness - Extremities Exam Extremities exam: Present: warm, radial pulses palpable and symmetrical. Absent : calf tenderness, cyanotic, pedal edema - Other Additional findings: Did not visually inspect patients wound. No bandage surrounding erythema or tenderness. - Subjective Interval history: Complains of pain on right shoulder, denies any nausea or vomiting, no fevers, no chest pressures or breath, no dysuria. - Constitutional Vitals: Temp Pulse Resp BP Pulse Ox 98.5 F 72 15 109/71 98 03/16/17 05:11 03/16/17 05:11 03/16/17 05:11 03/16/17 05:11 03/16/17 05:11 General appearance: Present: A&O X 3, pleasant, no acute distress, answers questions appropriately Internal Medicine: Result - Labs CBC & Chem 7: 03/16/17 04:00 03/16/17 04:00 Labs: Short CBC 03/16/17 Range/Units 04:00 WBC 8.1 (4.3-11.1) K/mcL Hgb 8.3 L (11.5-15.4) g/dL Hct 26.4 L (35.3-44.9) % Plt Count 504 H (140-400) K/mcL Neutrophils # 4.0 (1.6-8.9) K/mcL BMP 03/16/17 04:00 Sodium 138 Potassium 3.8 Chloride 105 Carbon Dioxide 27 BUN 12 Creatinine 0.61 Glucose 101 H Calcium 8.8 - VTE Documentation of Mechanical Device: Intermittent pneumatic compression device Consult Discharge Plan - Plan Additional Instructions: Please continue with IV doxycycline twice a day for 3 weeks. During this time is important that you follow-up with infectious disease for proper continuation of antibiotic therapy. It is very important that she take her antibiotics appropriately, as well as follow-up with infectious disease, specifically Tracy Osorio. Referrals: Tracy Osorio, SLICING MACHINE OPERATOR/TENDER [Advanced Practice Nurse] - NONE,PCP [Primary Care Provider] - Prescriptions: HYDROcodone/Acet 5/325 mg [[place] 5-325 mg] 1 tab PO Q4HR PRN #30 tablet PRN Reason: Moderate Pain (4-6) Vancomycin [Vancocin (wt based)] 1,000 mg IV BID 42 Days #84 vial
[2017-03-16] MEDS: Nicotine 21 MG PATCH.TD24 TD SCH (09:27)
--- NOTE | 2017-03-16 14:18 | Infectious Disease Progress No ---
Date of Encounter: 03/16/17 Time of Encounter: 14:16 - Assessment and Plan (1) Leukocytosis Current Visit: Yes Status: Acute Likely secondary to right shoulder infection. Resolved. Qualifiers: Leukocytosis type: other Qualified Code(s): D72.828 - Other elevated white blood cell count (2) Prosthetic joint infection Current Visit: Yes Status: Acute Location: Right shoulder. Causative organism MSSA. Secondary to right shoulder surgical wound infection. ESR 54, CRP 14. Ortho consulted and following. Status post right shoulder open I & D, hardware removal, sinus tract excision, and removal of total shoulder hardware 03/12/[address] Ragland. Intra-operative report reviewed. Sinus tract noted down to the hardware. Cement spacer placed. The patient's PCN allergy limits our potential antibiotic choices. Additionally , the patient had a possible reaction to the cefepime at the beginning of her hospital stay. Continue Vancomycin IV. Pharmacy to dose. Goal trough ~15. Duration of treatment depends on the clinical picture, but likely 6 weeks of IV antibiotics. The patient has a history of non-compliance in the past. I had a discussion with the patient regarding the importance of compliance with the treatment regimen, risks/benefits/alternatives of IV antibiotic therapy, and patient/provider expectations during her course of treatment. She verbalizes understanding and is in agreement to proceed with long-term IV antibiotic therapy. I gave her a [facility] of the [facility] to go over at her convenience. I have asked the patient to look this over and we will discuss questions tomorrow. social services specialist consulted and following to assist with discharge planning. Recommend the patient be placed at an ECF to ensure compliance with medication regimen and avoid concern for misuse of PICC line. Monitor renal function and for drug toxicity and dose-adjust antibiotics. Qualifiers: Encounter type: initial encounter Qualified Code(s): T84.50XA - Infection and inflammatory reaction due to unspecified internal joint prosthesis, initial encounter (3) Anemia Current Visit: Yes Status: Acute Hgb down to 8.3 from 12.3 on admission. Likely multifactorial: operative blood loss + hemodilution. No active bleeding noted on exam. Further workup and management per the primary team. Qualifiers: Anemia type: unspecified type Qualified Code(s): D64.9 - Anemia, unspecified (4) Polysubstance abuse Current Visit: Yes Status: Acute Patient reports last IVDU 2 weeks ago. Check HIV and Hepatitis profile.--> pending. (5) Constipation Current Visit: Yes Status: Acute Patient states she has not had a BM in four days and is uncomfortable. Bowel regimen per the primary team. Qualifiers: Constipation type: unspecified constipation type Qualified Code(s): K59.00 - Constipation, unspecified - Subjective Interval history: Patient seen and examined. No acute events noted overnight. Patient resting quietly in bed with family at the bedside. Complains of pain in the right shoulder and constipation. States she has not had a BM since surgery and she feels bloated. Denies fevers, chills, or rigors. Denies chest pain, shortness of breath, or cough. Denies nausea, vomiting, or diarrhea. Denies abdominal pain or urinary complaints. Denies oral thrush or skin lesions. Infect Dis PN-Objective Data - Labs CBC & Chem 7: 03/16/17 04:00 03/16/17 04:00 Labs: Laboratory Results - last 24 hr 03/15/17 03/16/17 03/16/17 19:23 04:00 04:00 WBC 8.1 RBC 3.01 L Hgb 8.3 L Hct 26.4 L MCV 87.7 MCH 27.6 L MCHC 31.4 L RDW 16.5 H Plt Count 504 H MPV 8.8 L Immature Gran % 0.4 Seg Neutrophils % 49.1 Lymphocytes % 37.7 Monocytes % 7.8 Eosinophils % 4.4 Basophils % 0.6 Neutrophils # 4.0 Lymphocytes # 3.1 Monocytes # 0.6 Eosinophils # 0.4 Basophils # 0.1 Sodium 138 Potassium 3.8 Chloride 105 Carbon Dioxide 27 BUN 12 Creatinine 0.61 Est GFR ( Amer) > 60 Est GFR (Non-Af Amer) > 60 BUN/Creatinine Ratio 20 Glucose 101 H POC Glucose 83 Calculated Osmolality 286 Calcium 8.8 Cultures: Cultures 03/12/17 17:07 Wound Culture - Final Right Shoulder Staphylococcus aureus 03/12/17 17:07 Gram Stain - Final Right Shoulder Exam - Constitutional Vitals: Temp Pulse Resp BP Pulse Ox 98.5 F 72 15 109/71 98 03/16/17 05:11 03/16/17 05:11 03/16/17 05:11 03/16/17 05:11 03/16/17 05:11 General appearance: average body habitus, cooperative, no acute distress - Head Head exam: Present: atraumatic, normal inspection, normocephalic - Eye Eye exam: Present: EOMI, normal appearance, PERRL Pupils: Present: normal accommodation - ENT ENT exam: Present: mucous membranes moist - Neck Neck exam: Present: normal inspection - Respiratory Respiratory exam: Present: CTAB. Absent: rales, respiratory distress, rhonchi, wheezes - Cardiovascular Cardiovascular exam: Present: RRR, +S1, +S2 - GI/Abdominal GI/Abdominal exam: Present: normal bowel sounds, soft. Absent: distended, tenderness - Extremities Exam Extremities exam: Present: joint swelling (right shoulder), tenderness (right shoulder) Additional comments: Right shoulder dressing C/D/I. - Neurological Exam Neurological exam: Present: alert, oriented X3, no focal deficits - Psychiatric Psychiatric exam: Present: normal affect, normal mood - Skin Skin exam: Present: dry, intact, normal color, warm - VTE Documentation of Mechanical Device: Intermittent pneumatic compression device Consult Discharge Plan - Plan Additional Instructions: Please continue with IV doxycycline twice a day for 3 weeks. During this time is important that you follow-up with infectious disease for proper continuation of antibiotic therapy. It is very important that she take her antibiotics appropriately, as well as follow-up with infectious disease, specifically Tracy Osorio. Referrals: Tracy Osorio, MEAT LOINER [Advanced Practice Nurse] - NONE,PCP [Primary Care Provider] - Prescriptions: HYDROcodone/Acet 5/325 mg [[place] 5-325 mg] 1 tab PO Q4HR PRN #30 tablet PRN Reason: Moderate Pain (4-6) Vancomycin [Vancocin (wt based)] 1,000 mg IV BID 42 Days #84 vial
[2017-03-17] MEDS: Vancomycin 1,000 MG in D5% in Water 250 ML IVPB SCH ×2 (03:02→14:11)
[2017-03-17] MEDS: *HR* HYDROcodone/Acet 5/325 mg TABLET PO PRN ×3 (03:05→12:06)
[2017-03-17] MEDS: *HR* Morphine 2 MG/ML SYRINGE IVP PRN ×3 (04:22→12:49)
[2017-03-17] MEDS: Nicotine 21 MG PATCH.TD24 TD SCH (07:47)
[2017-03-17 10:01] LABS: HIV-1&2 Antibody & p24 Ag Nonreactive (Nonreactive); Hepatitis A Antibody IgM Nonreactive (Nonreactive)
[2017-03-17 10:45] LABS: Hepatitis B Surface Antigen Nonreactive (Nonreactive)
[2017-03-17 11:06] VITALS: BP 124/75
[2017-03-17 11:54] LABS: Hepatitis C Virus Antibody Reactive (Nonreactive)
[2017-03-17 12:00] LABS: Hepatitis B Core IgM Reactive (Nonreactive)
--- NOTE | 2017-03-17 12:34 | Infectious Disease Progress No ---
Date of Encounter: 03/17/17 Time of Encounter: 12:32 - Assessment and Plan (1) Leukocytosis Current Visit: Yes Status: Acute Likely secondary to right shoulder infection. Resolved. Qualifiers: Leukocytosis type: other Qualified Code(s): D72.828 - Other elevated white blood cell count (2) Prosthetic joint infection Current Visit: Yes Status: Acute Location: Right shoulder. Causative organism MSSA. Secondary to right shoulder surgical wound infection. ESR 54, CRP 14. Ortho consulted and following. Status post right shoulder open I & D, hardware removal, sinus tract excision, and removal of total shoulder hardware 03/12/[address] Ragland. Intra-operative report reviewed. Sinus tract noted down to the hardware. Cement spacer placed. The patient's PCN allergy limits our potential antibiotic choices. Additionally , the patient had a possible reaction to the cefepime at the beginning of her hospital stay. Continue Vancomycin IV. Pharmacy to dose. Goal trough ~15. Duration of treatment depends on the clinical picture, but likely 6 weeks of IV antibiotics. The patient has a history of non-compliance in the past. I had a discussion with the patient regarding the importance of compliance with the treatment regimen, risks/benefits/alternatives of IV antibiotic therapy, and patient/provider expectations during her course of treatment. She verbalizes understanding and is in agreement to proceed with long-term IV antibiotic therapy. I gave her a copy of [facility] to go over at her convenience. I have asked the patient to look this over and we will discuss questions tomorrow. She has not had an opportunity to read the entire thing, so we will plan on discussing further tomorrow. client services director consulted and following to assist with discharge planning. Recommend the patient be placed at an ECF to ensure compliance with medication regimen and avoid concern for misuse of PICC line. Monitor renal function and for drug toxicity and dose-adjust antibiotics. Qualifiers: Encounter type: initial encounter Qualified Code(s): T84.50XA - Infection and inflammatory reaction due to unspecified internal joint prosthesis, initial encounter (3) Anemia Current Visit: Yes Status: Acute Hgb down to 8.3 from 12.3 on admission. Likely multifactorial: operative blood loss + hemodilution. No active bleeding noted on exam. Further workup and management per the primary team. Qualifiers: Anemia type: unspecified type Qualified Code(s): D64.9 - Anemia, unspecified (4) Polysubstance abuse Current Visit: Yes Status: Acute Patient reports last IVDU 2 weeks ago. HIV negative. Hepatitis C antibody positive. (5) Hepatitis C Current Visit: Yes Status: Acute Refer to GI as an outpatient for evaluation for treatment. Qualifiers: Viral hepatitis chronicity: chronic Hepatic coma status: without hepatic coma Qualified Code(s): B18.2 - Chronic viral hepatitis C - Subjective Interval history: Patient seen and examined. No acute events noted overnight. Patient resting quietly in bed with family at the bedside. Complains of pain in the right shoulder and constipation. States she has not had a BM since surgery and she feels bloated. Denies fevers, chills, or rigors. Denies chest pain, shortness of breath, or cough. Denies nausea, vomiting, or diarrhea. Denies abdominal pain or urinary complaints. Denies oral thrush or skin lesions. Infect Dis PN-Objective Data - Labs CBC & Chem 7: 03/16/17 04:00 03/16/17 04:00 Labs: Laboratory Results - last 24 hr 03/16/17 03/17/17 11:22 02:00 Vancomycin Trough 12.7 Hepatitis A IgM Ab Nonreactive Hep Bs Antigen Nonreactive Hep B Core IgM Ab Reactive H Hepatitis C Ab Screen Reactive H HIV Ag/Ab Combo Qual Nonreactive Cultures: Cultures 03/12/17 17:07 Anaerobic Culture - Final Right Shoulder No anaerobes were recovered. 03/12/17 17:07 Wound Culture - Final Right Shoulder Staphylococcus aureus 03/12/17 17:07 Gram Stain - Final Right Shoulder Serology 03/16/17 Range/Units 11:22 Hepatitis A IgM Ab Nonreactive (Nonreactive) Hep Bs Antigen Nonreactive (Nonreactive) Hep B Core IgM Ab Reactive H (Nonreactive) Hepatitis C Ab Screen Reactive H (Nonreactive) HIV Ag/Ab Combo Qual Nonreactive (Nonreactive) Exam - Constitutional Vitals: Temp Pulse Resp BP Pulse Ox 98.1 F 73 14 124/75 97 03/17/17 11:06 03/17/17 11:06 03/17/17 11:06 03/17/17 11:06 03/17/17 11:06 General appearance: average body habitus, cooperative, no acute distress - Head Head exam: Present: atraumatic, normal inspection, normocephalic - Eye Eye exam: Present: EOMI, normal appearance, PERRL Pupils: Present: normal accommodation - ENT ENT exam: Present: mucous membranes moist - Neck Neck exam: Present: normal inspection - Respiratory Respiratory exam: Present: CTAB. Absent: rales, respiratory distress, rhonchi, wheezes - Cardiovascular Cardiovascular exam: Present: RRR, +S1, +S2 - GI/Abdominal GI/Abdominal exam: Present: normal bowel sounds, soft. Absent: distended, tenderness - Extremities Exam Extremities exam: Present: joint swelling (right shoulder), tenderness (right shoulder) Additional comments: Right shoulder dressing C/D/I with arm immobilized in sling. + PMS to the distal extremity. - Neurological Exam Neurological exam: Present: alert, oriented X3, no focal deficits - Psychiatric Psychiatric exam: Present: normal affect, normal mood - Skin Skin exam: Present: dry, intact, normal color, warm - VTE Documentation of Mechanical Device: Intermittent pneumatic compression device Consult Discharge Plan - Plan Additional Instructions: Please continue with IV doxycycline twice a day for 3 weeks. During this time is important that you follow-up with infectious disease for proper continuation of antibiotic therapy. It is very important that she take her antibiotics appropriately, as well as follow-up with infectious disease, specifically Tracy Osorio. Referrals: Tracy Osorio, TRANSPORTATION BROKER [Advanced Practice Nurse] - NONE,PCP [Primary Care Provider] - Prescriptions: HYDROcodone/Acet 5/325 mg [[place] 5-325 mg] 1 tab PO Q4HR PRN #30 tablet PRN Reason: Moderate Pain (4-6) Vancomycin [Vancocin (wt based)] 1,000 mg IV BID 42 Days #84 vial
[2017-03-17] MEDS: MOM Conc 10 ML UD.LIQ PO PRN (12:49)
--- NOTE | 2017-03-17 14:56 | Internal Med Progress Note ---
Date of Encounter: 03/17/17 Time of Encounter: 14:54 - Time Spent With Patient (1) Wound of right shoulder Current Visit: Yes Status: Acute Assessment and plan: Secondary to right shoulder surgical wound infection. 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 Patient has a history of a right total shoulder replacement secondary to a fall down stairs. Complicated by periprosthetic humerus fracture. Previously seen Ortho for a late developing infection in right arm (thought to be related to drug use at that time). Has been noncompliant with follow-up had persistent drainage from right shoulder. Post op day 3. S/P right shoulder open irrigation and debridement, hardware removal, sinus tract excision, removal of total shoulder replacement. Infectious diseases recommended to discontinue doxycycline at 33 vancomyci was restarted, day 3, continue for 6 weeks -Will likely need long-term IV ATB's postoperatively which will require patient going to rehabilitation facility to avoid concerns of inappropriate use of PICC home. continue with pain control. -Infectious Disease following the case pending discharge placement, complicated prison acceptance as patient is IVDA. Qualifiers: Encounter type: sequela Qualified Code(s): S41.001S - Unspecified open wound of right shoulder, sequela (2) Polysubstance abuse Current Visit: Yes Status: Acute Assessment and plan: UDS positive for amphetamines and marijuana. Continue judicious pain control. lifestyle modifications advised. (3) DVT prophylaxis Current Visit: Yes Status: Acute Assessment and plan: epcd (4) Tobacco abuse Current Visit: No Status: Chronic Assessment and plan: smoking cessation advised. nicotine patch PRN. (5) COPD (chronic obstructive pulmonary disease) Current Visit: Yes Status: Acute Assessment and plan: not in acute exacerbation. continue albuterol. Qualifiers: COPD type: unspecified COPD Qualified Code(s): J44.9 - Chronic obstructive pulmonary disease, unspecified - Subjective Interval history: Complains of pain over right shoulder wound, denies any nausea or vomiting, no fevers, no chest pressures or breath, no dysuria. - Constitutional Vitals: Temp Pulse Resp BP Pulse Ox 98.1 F 73 14 124/75 97 03/17/17 11:06 03/17/17 11:06 03/17/17 11:06 03/17/17 11:06 03/17/17 11:06 General appearance: Present: A&O X 3, pleasant, no acute distress, answers questions appropriately Exam: General appearance: Present: A&O X 3, pleasant, no acute distress, answers questions appropriately - Respiratory Respiratory exam: Present: CTAB. Absent: accessory muscle use, rales, rhonchi, wheezes - Cardiovascular Cardiovascular exam: Present: RRR, +S1, +S2. Absent: diastolic murmur, gallop, rubs, systolic murmur - GI/Abdominal GI/Abdominal exam: Present: normal bowel sounds, soft, no peritoneal signs. Absent: distended, tenderness - Extremities Exam Extremities exam: Present: warm, radial pulses palpable and symmetrical. Absent : calf tenderness, cyanotic, pedal edema - Other Additional findings: Did not visually inspect patients wound. No bandage surrounding erythema or tenderness. - Subjective Interval history: Complains of pain on right shoulder, denies any nausea or vomiting, no fevers, no chest pressures or breath, no dysuria. Internal Medicine: Result - Labs CBC & Chem 7: 03/16/17 04:00 03/16/17 04:00 - VTE Documentation of Mechanical Device: Intermittent pneumatic compression device Consult Discharge Plan - Plan Additional Instructions: Please continue with IV doxycycline twice a day for 3 weeks. During this time is important that you follow-up with infectious disease for proper continuation of antibiotic therapy. It is very important that she take her antibiotics appropriately, as well as follow-up with infectious disease, specifically Tracy Osorio. Referrals: Tracy Osorio, MAINTENANCE SERVICE SUPERVISOR [Advanced Practice Nurse] - NONE,PCP [Primary Care Provider] - Prescriptions: HYDROcodone/Acet 5/325 mg [[place] 5-325 mg] 1 tab PO Q4HR PRN #30 tablet PRN Reason: Moderate Pain (4-6) Vancomycin [Vancocin (wt based)] 1,000 mg IV BID 42 Days #84 vial
[2017-03-17] MEDS ORDERED: Aminoglycoside Consult 1 EACH MC ONE (16:19)
== END 2017-03-17 16:20 | DRG 320 ==
LOC: EMEROO 17:48 → 3NENU 17:48 → SUATTDRO 20:35 → 3NENU 21:35
PROVIDERS: ADMIT Internal Medicine Hematology & Oncology; ATTEND Internal Medicine

== ENCOUNTER 2017-04-06 12:14 | Inpatient (IN) ==
--- NOTE | 2017-04-06 12:20 | Emergency Department Note ---
Disposition Clinical Impression: Septic joint Qualifiers: Septic arthritis location: shoulder Septic arthritis organism: staphylococcal Laterality: right Qualified Code(s): M00.011 - Staphylococcal arthritis, right shoulder Disposition: Admitted As Inpatient Condition: Good Referrals: NONE,PCP [Primary Care Provider] - Forms: ED Satisfaction Letter Time of Disposition: 14:36 General Adult HPI - General Chief complaint: ED Recheck/Abnormal Lab/Rx Stated complaint: requesting antibiotic therapy Time Seen by Provider: 04/06/17 12:16 Source: patient, EMS Mode of arrival: EMS Limitations: no limitations Nursing Notes Reviewed: Yes Vital Signs Reviewed: Yes - History of Present Illness HPI Narrative: 32-year-old female who states had a total shoulder replacement and a or of a humeral fracture remotely. She then developed an infection and had the hardware removed at the end of February. She was admitted to the halfway with a PICC line for 8 weeks of vancomycin however the patient signed out because she wanted to be transferred to another facility up [place] with her brother. Her insurance company declined to pay for the treatment up [place] and so she is now back to be readmitted to the halfway. Patient states she got dizzy and lightheaded yesterday. Review of infectious disease note on 03/15/2017 indicated patient will be started on vancomycin for the treatment of MSSA. Vancomycin was a choice due to allergy to penicillin. Pt Subjective Complaint: need antibiotics Pain Severity: moderate Treatments Prior to Arrival: other (Antibiotics) - Related Data Home Medications Medication Instructions Recorded Confirmed Naproxen [Naprosyn] 500 mg PO BID 03/10/17 03/10/17 Tramadol HCl [Ultram] 50 mg PO Q6-8H PRN 03/10/17 03/10/17 Previous Rx's Medication Instructions Recorded Acetaminophen [Tylenol] 650 mg PO Q6HR PRN tablet 03/15/17 Docusate [Colace] 100 mg PO BID capsule 03/15/17 HYDROcodone/Acet 5/325 mg [Assumption 1 tab PO Q4HR PRN #30 tablet 03/15/17 5-325 mg] Ketorolac [Toradol] 30 mg IVP Q6HR PRN vial 03/15/17 MOM Conc [MILK OF MAGNESIA conc] 5 ml PO HS PRN ud.liq 03/15/17 Nicotine Patch [Nicoderm] 21 mg TD DAILY patch.[id number] 03/15/17 Ondansetron [Zofran] 4 mg IVP Q8HR PRN vial 03/15/17 Vancomycin [Vancocin (wt based)] 1,000 mg IV BID 42 Days #84 vial 03/15/17 Allergies Allergy/AdvReac Type Severity Reaction Status Date / Time clindamycin AdvReac Swelling Verified 03/10/17 18:30 of the Eye Penicillins AdvReac Hives Verified 03/10/17 18:30 All systems ED: reviewed and negative except as stated. Constitutional: Denies: fever, chills, weakness, weight change Eyes: Denies: eye pain, eye discharge, vision change ENT ED: Denies: ear pain, throat pain, dental pain, hearing loss, epistaxis, congestion, dysphagia Cardiovascular: Denies: chest pain, palpitations, dyspnea on exertion, edema, syncope Respiratory: Denies: cough, dyspnea, wheezes, hemoptysis, stridor Gastrointestinal: Denies: abdominal pain, nausea, vomiting, diarrhea, constipation, hematemesis, melena, hematochezia Genitourinary: Denies: dysuria, frequency, hematuria, discharge Musculoskeletal: Reports: arthralgia. Denies: back pain, neck pain, myalgia Integumentary: Denies: rash, abrasion, lesions Neurological: Denies: headache, weakness, numbness, paresthesias, confusion, abnormal gait, vertigo Psychiatric: Denies: anxiety, depression, suicidal thoughts, homicidal thoughts , auditory hallucinations, visual hallucinations Endocrine: Denies: fatigue Hematological/Lymphatic: Denies: easy bleeding, easy bruising Allergic/Immunologic: Denies: facial swelling, urticaria Past Medical History - Past Medical History Medical history: Reports: COPD Surgical history: Reports: orthopedic, other (Right total shoulder replacement 2015, right shoulder revision 2016, tonsillectomy), sinus surgery Psychiatric history: Reports: anxiety, PTSD - Social History Smoking Status: Current every day smoker Smokeless Tobacco Status: No Alcohol use: Reports: none Drug use: Reports: IV Drug Use (Methamphetamines 2 weeks ago) Physical Exam - General Limitations: no limitations General appearance: alert, in no apparent distress - Head Head exam: atraumatic, normocephalic, normal inspection - Eye Eye exam: Present: normal appearance, PERRL, EOMI - ENT ENT exam: normal exam, normal oropharynx, mucous membranes moist - Neck Neck exam: Present: normal inspection, full ROM, trachea midline - Chest Chest inspection: Present: normal inspection, symmetric chest wall rise - Cardiovascular Cardiovascular exam: Present: regular rate, normal rhythm, normal heart sounds - Abdominal Exam Abdominal exam: Present: soft, Non-Tender. Absent: tenderness, distention, guarding, rebound, rigidity - Expanded Upper Extremity Exam Shoulder exam: Present: other (Incisions are clean and dry) - Expanded Lower Extremity Exam Neurovascular/Tendon exam: Absent: motor deficit, sensory deficit, tendon deficit Gait: observed and normal - Back Exam Back exam: Present: normal inspection, full ROM. Absent: tenderness - Neurological Exam Neurological exam: Present: alert, oriented X3. Absent: motor sensory deficit - Psychiatric Psychiatric exam: Present: normal affect, normal mood - Skin Skin exam: Present: warm, dry, intact, normal color Course - Reevaluation(s) Reevaluation #1: 32-year-old who had an infected shoulder that was removed at the end of February she was admitted to a halfway for IV antibiotics for 6 weeks but signed out AMA she is back because she tried to go to a halfway up [place] and they would not accept her insurance. Time: 14:36 - Consultations Consultation #1: Discussed with , she needs a monitored PICC line for IV antibiotics. All be admitted PICC line and vancomycin. Time: 12:57 Consultation #2: Discussed with Dr. Welch, admit. Time: 14:34 Vital Signs Temperature 98.3 F 04/06/17 12:17 Pulse Rate 88 04/06/17 12:17 Respiratory Rate 14 04/06/17 12:17 Blood Pressure 123/90 04/06/17 12:17 O2 Sat by Pulse Oximetry 99 04/06/17 12:17 Temperature 98.3 F 04/06/17 12:17 Pulse Rate 85 04/06/17 13:51 Respiratory Rate 17 04/06/17 13:51 Blood Pressure 123/81 04/06/17 13:51 O2 Sat by Pulse Oximetry 98 04/06/17 13:51 Oxygen Delivery Oxygen Delivery Room Air Medical Decision Making - Lab Data Lab results reviewed: Yes I reviewed the patient's lab results. Result diagrams: 04/06/17 12:31 04/06/17 12:31 Lab Results 04/06/17 04/06/17 04/06/17 Range/Units 12:31 12:31 12:31 WBC 10.4 (4.3-11.1) K/mcL RBC 3.87 (3.82-4.97) M/mcL Hgb 11.3 L (11.5-15.4) g/dL Hct 34.6 L (35.3-44.9) % MCV 89.4 (83.0-100.0) fL MCH 29.2 (28.0-33.3) pg MCHC 32.7 (31.6-35.5) g/dL RDW 17.2 H (11.5-14.5) % Plt Count 537 H (140-400) K/mcL MPV 8.3 L (9.4-12.4) fL Immature Gran % 0.3 (0-4) % Seg Neutrophils % 50.9 % Lymphocytes % 36.1 % Monocytes % 7.5 % Eosinophils % 4.5 % Basophils % 0.7 % Neutrophils # 5.3 (1.6-8.9) K/mcL Lymphocytes # 3.7 (0.6-4.6) K/mcL Monocytes # 0.8 (0.0-1.3) K/mcL Eosinophils # 0.5 (0.0-0.6) K/mcL Basophils # 0.1 (0.0-0.2) K/mcL ESR 22 H (0-15) mm/hr Sodium 139 (136-145) mEq/L Potassium 3.8 (3.5-4.5) mEq/L Chloride 107 (98-109) mEq/L Carbon Dioxide 23 (19-29) mEq/L BUN 8 (7-20) mg/dL Creatinine 0.67 (0.57-1.11) mg/dL Est GFR ( Amer) > 60 (> 60) Est GFR (Non-Af Amer) > 60 (> 60) BUN/Creatinine Ratio 12 (6-26) Glucose 97 (70-99) mg/dL Calculated Osmolality 286 (280-300) Lactic Acid (0.5-2.2) mmol/L Calcium 9.3 (8.6-10.8) mg/dL Troponin I (0-0.03) ng/mL Serum , Qual (Negative) 04/06/17 04/06/17 04/06/17 Range/Units 12:31 12:31 12:31 WBC (4.3-11.1) K/mcL RBC (3.82-4.97) M/mcL Hgb (11.5-15.4) g/dL Hct (35.3-44.9) % MCV (83.0-100.0) fL MCH (28.0-33.3) pg MCHC (31.6-35.5) g/dL RDW (11.5-14.5) % Plt Count (140-400) K/mcL MPV (9.4-12.4) fL Immature Gran % (0-4) % Seg Neutrophils % % Lymphocytes % % Monocytes % % Eosinophils % % Basophils % % Neutrophils # (1.6-8.9) K/mcL Lymphocytes # (0.6-4.6) K/mcL Monocytes # (0.0-1.3) K/mcL Eosinophils # (0.0-0.6) K/mcL Basophils # (0.0-0.2) K/mcL ESR (0-15) mm/hr Sodium (136-145) mEq/L Potassium (3.5-4.5) mEq/L Chloride (98-109) mEq/L Carbon Dioxide (19-29) mEq/L BUN (7-20) mg/dL Creatinine (0.57-1.11) mg/dL Est GFR ( Amer) (> 60) Est GFR (Non-Af Amer) (> 60) BUN/Creatinine Ratio (6-26) Glucose (70-99) mg/dL Calculated Osmolality (280-300) Lactic Acid 1.8 (0.5-2.2) mmol/L Calcium (8.6-10.8) mg/dL Troponin I 0.00 (0-0.03) ng/mL Serum , Qual Negative (Negative) - EKG Data EKG #1 EKG attestation: Yes I reviewed and interpreted this EKG. EKG shows normal: sinus rhythm Rate: normal Rhythm: NSR Interpretation: no acute changes
[2017-04-06] MEDS ORDERED: Lidocaine -MPF 1% 2 ML VIAL INFILT ONE (12:23)
[2017-04-06 12:45] LABS: Basophils # 0.1 K/mcL (0.0-0.2); Basophils % 0.7 %; Eosinophils # 0.5 K/mcL (0.0-0.6); Eosinophils % 4.5 %; Hematocrit 34.6 % (35.3-44.9); Hemoglobin 11.3 g/dL (11.5-15.4); Immature Granulocytes % 0.3 % (0-4); Lymphocytes # 3.7 K/mcL (0.6-4.6); Lymphocytes % 36.1 %; Mean Corpuscular HGB Conc 32.7 g/dL (31.6-35.5); Mean Corpuscular Hemoglobin 29.2 pg (28.0-33.3); Mean Corpuscular Volume 89.4 fL (83.0-100.0); Mean Platelet Volume 8.3 fL (9.4-12.4); Monocytes # 0.8 K/mcL (0.0-1.3); Monocytes % 7.5 %; Neutrophils # 5.3 K/mcL (1.6-8.9); Platelet Count 537 K/mcL (140-400); Red Blood Count 3.87 M/mcL (3.82-4.97); Red Cell Distribution Width 17.2 % (11.5-14.5); Segmented Neutrophils % 50.9 %
[2017-04-06] MEDS ORDERED: *HR* OxyCODONE/APAP 5/325 TABLET PO ONE (12:56)
[2017-04-06] MEDS ORDERED: Vancomycin 1,000 MG in D5% in Water 250 ML IVPB ONE (12:57)
[2017-04-06 13:10] LABS: BUN/Creatinine Ratio 12 (6-26); Blood Urea Nitrogen 8 mg/dL (7-20); Calcium 9.3 mg/dL (8.6-10.8); Carbon Dioxide 23 mEq/L (19-29); Chloride 107 mEq/L (98-109); Glucose 97 mg/dL (70-99); Osmolality,Calculated 286 (280-300); Potassium 3.8 mEq/L (3.5-4.5); Sodium 139 mEq/L (136-145); eGFR For African Americans > 60 (> 60); eGFR For Non-African Americans > 60 (> 60)
[2017-04-06] MEDS ORDERED: Acetaminophen 325 MG TABLET PO PRN (14:43)
[2017-04-06] MEDS ORDERED: Ondansetron 4 MG/2 ML VIAL IVP PRN (14:43)
[2017-04-06] MEDS ORDERED: Naloxone 0.4 MG/ML INJ IVP PRN (14:43)
[2017-04-06] MEDS ORDERED: Vancomycin 750 MG in D5% in Water 250 ML IVPB SCH (15:00)
--- NOTE | 2017-04-06 15:07 | Internal Med History&Physical ---
Date of Encounter: 04/06/17 Time of Encounter: 15:07 Assessment and Plan (1) Prosthetic joint infection Current visit: No Status: Acute Patient has MSSA infection right shoulder secondary to surgical wound infection. We did consult orthopedics-she status post right shoulder open I&D and hardware removal sinus tract excision and removal total shoulder hardware on 03/12/[address] Ragland- We also consulted infectious disease patient has a penicillin allergy as well as possible reaction to cefepime we will continue vancomycin for now pharmacy to dose. Patient has not received antibiotics for the past 2 weeks due to signing out AMA from [facility] environmental services attendant consulted for discharge planning Qualifiers: Encounter type: initial encounter Qualified Code(s): T84.50XA - Infection and inflammatory reaction due to unspecified internal joint prosthesis, initial encounter (2) Tobacco abuse Current visit: No Status: Chronic Encourage patient to stop smoking-nicotine patch (3) DVT prophylaxis Current visit: No Status: Acute Lovenox subcutaneous (4) Polysubstance abuse Current visit: No Status: Acute Patient admits to past drug abuse-states she last used 2 days ago she smoked marijuana. We will obtain tox screen We will be cautious with pain medications Patient will require admission to the ECF to receive ongoing antibiotic treatment through PICC line due to history IV DA (5) COPD (chronic obstructive pulmonary disease) Current visit: No Status: Acute We will continue with bronchodilators as needed Oxygen as needed Qualifiers: COPD type: unspecified COPD Qualified Code(s): J44.9 - Chronic obstructive pulmonary disease, unspecified Internal Medicine - H&P: HPI Chief complaint: ATB tx Admitted From: Emergency Dept Plans for Post Hospital Care: Home History of present illness: Ms. Mcallister is a 32 year old female past medical history of hepatitis C nonhealing wound right shoulder right total shoulder replacement-complicated by periprosthetic humerus fracture history of IV drug abuse. Patient was seen and admitted to this facility 03/10/2017 chronic nonhealing wound to right shoulder. She had had right total shoulder replacement secondary to a fall down the stairs and was complicated by a period prosthetic humerus fracture. She had been seen by orthopedics and underwent right shoulder open irrigation and debridement hardware removal and sinus tract excision removal of total shoulder replacement. As well as she was seen by infectious disease wound culture grew MSSA initiated on vancomycin. She was discharged to a care home for 8 weeks of vancomycin to avoid concerns of inappropriate use of PICC due to history of IVDA. However the patient signed out AMA because she wanted to be transferred to another facility at [place] to be closer to her brother. Her insurance company declined to pay for the treatment and she returned to the ER in order to receive antibiotics and be readmitted to the care home. She has not received antibiotics for approximately 2 weeks. She also had a fall yesterday after she became lightheaded and fell onto her right arm. She denies any recent IV drug use however does admit to marijuana use. ER physician did consult Dr. Ragland as well as placed PICC line. She has been admitted for further workup and evaluation. Presently patient does complain of right shoulder pain. She does have leena that are intact incision is tender to palpation patient states she was supposed to have her leena out approximately 1 week ago. Incision is slightly red with drainage pulses are present no swelling noted. She seemed to be stable at this time. I did review this case with Dr. Olsen who graciously plan. Past Med Surg Social Fam HX - Past Medical History Medical history: COPD Psychiatric history: anxiety, PTSD - Past Surgical History Surgical History: orthopedic, other (Right total shoulder replacement 2014, right shoulder revision 2016, tonsillectomy), sinus surgery - Social History Smoking Status: Current every day smoker Smokeless Tobacco Status: No Alcohol use: none Drug use: IV Drug Use (Methamphetamines 2 weeks ago) - Family History Father Living Status: Still Living Hx Family Cardiac Disorders: Yes (Enlarged heart, HTN) Mother Living Status: Still Living Hx Family Cardiac Disorders: Yes (Unknown specific dx) Hx Family Respiratory Disorders: Yes (COPD) Internal Medicine - H&P: Meds No Known Home Drugs 04/06/17 [History] 3 Allergy/AdvReac Type Severity Reaction Status Date / Time clindamycin AdvReac Swelling Verified 03/10/17 18:30 of the Eye Penicillins AdvReac Hives Verified 03/10/17 18:30 All Systems PM: A 10-system review of systems was performed and is negative for pertinent findings except as documented above in the HPI. - Constitutional Constitutional: no chills, no fever(s), no night sweats - EENT Eyes: no change in vision, no discharge, no pain, no photophobia Ears: no ear discharge, no ear pain, no tinnitus Nose, mouth and throat: no dysphagia, no nasal discharge, no neck pain, no sore throat - Cardiovascular Cardiovascular ROS IM: syncope, no chest pain, no diaphoresis, no dyspnea, no lightheadedness, no palpitations - Respiratory Respiratory: no cough, no dyspnea, no wheezing, no excessive phlegm production - Gastrointestinal Gastrointestinal: no abdominal pain, no diarrhea, no hematemesis, no hematochezia, no melena, no nausea, no vomiting - Musculoskeletal Musculoskeletal ROS IM: arthralgias, joint swelling - Integumentary Integumentary IM: erythema, no rash, no unusual bruising - Neurological Neurological ROS: no confusion, no convulsions, no focal weakness, no numbness, no tingling, no tremor(s) - Hematologic/Lymphatic Hematologic/Lymphatic: no easy bruising - Constitutional Vitals: Temp Pulse Resp BP Pulse Ox 98.3 F 70 14 112/71 99 04/06/17 12:17 04/06/17 14:53 04/06/17 14:53 04/06/17 14:53 04/06/17 14:53 General appearance: Present: A&O X 3, answers questions appropriately - Head Head exam: Present: atraumatic, normocephalic - Eye Eye exam: Present: PERRL, conjuntiva pink, sclera anicteric Pupils: Present: PERRL - Neck Neck exam general surgery: Present: supple, trachea midline. Absent: lymphadenopathy - Respiratory Respiratory exam: Present: rhonchi. Absent: accessory muscle use, rales, wheezes - Cardiovascular Cardiovascular exam: Present: RRR, +S1, +S2. Absent: diastolic murmur, gallop, rubs, systolic murmur - GI/Abdominal GI/Abdominal exam: Present: normal bowel sounds, soft, no peritoneal signs. Absent: distended, tenderness - Extremities Exam Extremities exam: Present: warm, radial pulses palpable and symmetrical. Absent : calf tenderness, cyanotic, pedal edema - Expanded Upper Extremities Exam Shoulder exam: Present: tenderness, tenderness over AC joint - Incison Incision: Present: intact, erythema, approximated - Neurological Exam Neurological exam: Present: CN II-XII intact, oriented X3, no focal deficits. Absent: pronater drift, facial droop, speech deficit - Skin Skin exam: Present: dry, intact Internal Med - H&P Results - Labs CBC & Chem 7: 04/06/17 12:31 04/06/17 12:31 Labs: Short CBC 04/06/17 Range/Units 12:31 WBC 10.4 (4.3-11.1) K/mcL Hgb 11.3 L (11.5-15.4) g/dL Hct 34.6 L (35.3-44.9) % Plt Count 537 H (140-400) K/mcL Neutrophils # 5.3 (1.6-8.9) K/mcL BMP 04/06/17 12:31 Sodium 139 Potassium 3.8 Chloride 107 Carbon Dioxide 23 BUN 8 Creatinine 0.67 Glucose 97 Calcium 9.3 Cardiac Enzymes 04/06/17 Range/Units 12:31 Troponin I 0.00 (0-0.03) ng/mL - Impressions ITS Impressions Shoulder X-Ray 04/06/17 12:56 IMPRESSION: Slight interval increase in osseous erosion medial to the spacer in the scapula. Vertical linear lucency in the proximal humerus is indeterminate could represent minimally displaced fracture or could be projectional from space left after removal of the humeral component. D/ / Mayank Perez MD / Mayank Perez MD Interpreting Provider: Mayank Perez MD - Diagnostic Studies Other Images Additional comments: Shoulder X-Ray 04/06/17 12:56
[2017-04-06 15:47] LABS: Amphetamine Screen,Urine Negative ng/mL (Cutoff=1000); Barbiturate Screen,Urine Negative ng/mL (Cutoff=200); Benzodiazepines Screen,Urine Positive ng/mL (Cutoff=200); Cannabinoid Screen,Urine Positive ng/mL (Cutoff = 50); Cocaine Screen,Urine Negative ng/mL (Cutoff= 300); Opiate Screen,Urine Negative ng/mL (Cutoff=300); Phencyclidine Screen,Urine Negative ng/mL (Cutoff=25)
--- NOTE | 2017-04-06 16:33 | Orthopedic Consult Note ---
Date of Encounter: 04/06/17 Time of Encounter: 16:30 Assessment and Plan (1) Surgical site infection Current Visit: Yes Status: Chronic Continue with placement to ECF for antibiotic therapy via PICC line per infectious disease regimen. Patient to follow up with [facility] outpatient. Pain control per Hospitalist. Thank you for this consultation. Qualifiers: Encounter type: initial encounter Qualified Code(s): T81.4XXA - Infection following a procedure, initial encounter (2) Shoulder pain, right Current Visit: Yes Status: Chronic Qualifiers: Chronicity: chronic Qualified Code(s): M25.511 - Pain in right shoulder (3) Wound of right shoulder Current Visit: Yes Status: Chronic Qualifiers: Encounter type: sequela Qualified Code(s): S41.001S - Unspecified open wound of right shoulder, sequela History of Present Illness Chief complaint: right shoulder pain HPI: Ms. Mcallister is a 32 year old female presented to the ED after fall. She signed out AMA of ECF appx 2 weeks ago and has not received any IV antibiotics since that time. She admits to right shoulder pain at this time. She had an infected right total shoulder replacement several weeks ago after being noncompliant with orthopedic follow up and presented to [facility] and was admitted and had surgery on 03/12/[address] Ragland: Right shoulder open irrigation and debridement, hardware removal, sinus tract excision, removal of total shoulder replacement. Patient was seen by infectious disease team for medication selection and recommended Vancomycin for 8 weeks via PICC line. At this time her leena from her 03/12/[address] in [address]. Patient resting comfortably in ED cot. She is alert and oriented. She states she forgot her sling. Inspection right shoulder reveals well healed incision with leena intact and uncovered. Patient elbow and wrist and hand on right side motion intact. Neurovascularly intact. Case discussed with Dr. Ragland. Patient's leena removed after cleansing with Iodine. Leena removed and cleansed again with Iodine then honeycomb opsite applied. patient tolerated well. Continue with placement to ECF for antibiotic therapy via PICC line per infectious disease regimen. Patient to follow up with [facility] outpatient. Pain control per Hospitalist. Thank you for this consultation. Past Med Surg Social Fam HX - Past Medical History Medical history: COPD Psychiatric history: anxiety, PTSD - Past Surgical History Surgical History: orthopedic, other (Right total shoulder replacement 2014, right shoulder revision 2016, tonsillectomy), sinus surgery - Social History Smoking Status: Current every day smoker Smokeless Tobacco Status: No Alcohol use: none Drug use: IV Drug Use (Methamphetamines 2 weeks ago) - Family History Father Living Status: Still Living Hx Family Cardiac Disorders: Yes (Enlarged heart, HTN) Mother Living Status: Still Living Hx Family Cardiac Disorders: Yes (Unknown specific dx) Hx Family Respiratory Disorders: Yes (COPD) Medications and Allergies No Known Home Drugs 04/06/17 [History] 3 Allergy/AdvReac Type Severity Reaction Status Date / Time clindamycin AdvReac Swelling Verified 03/10/17 18:30 of the Eye Penicillins AdvReac Hives Verified 03/10/17 18:30 All Systems Reviewed: A 10-system review of systems was performed and is negative for pertinent findings except as documented above in the HPI. Physical Exam - Constitutional Vitals: Temp Pulse Resp BP Pulse Ox 98.3 F 75 16 128/82 100 04/06/17 12:17 04/06/17 16:12 04/06/17 16:12 04/06/17 16:12 04/06/17 16:12 Results - Labs Result Diagrams: 04/07/17 05:20 04/07/17 05:20 Labs: Abnormal lab results Hgb 11.3 g/dL (11.5-15.4) L 04/06/17 12:31 Hct 34.6 % (35.3-44.9) L 04/06/17 12:31 RDW 17.2 % (11.5-14.5) H 04/06/17 12:31 Plt Count 537 K/mcL (140-400) H 04/06/17 12:31 MPV 8.3 fL (9.4-12.4) L 04/06/17 12:31 ESR 22 mm/hr (0-15) H 04/06/17 12:31 U Benzodiazepines Scrn Positive ng/mL (Xfcjef=[id number]) H 04/06/17 13:00 U Marijuana (THC) Screen Positive ng/mL (Cutoff = 50) H 04/06/17 13:00 All other labs normal. Consult Discharge Plan - Plan Referrals: NONE,PCP [Primary Care Provider] -
[2017-04-06] MEDS: Nicotine 21 MG PATCH.TD24 TD SCH (17:10)
[2017-04-06] MEDS: *HR* Morphine 2 MG/ML SYRINGE IVP PRN ×2 (18:12→22:37)
[2017-04-06] MEDS: *HR* HYDROcodone/Acet 5/325 mg TABLET PO PRN (21:27)
[2017-04-07 00:30] LABS: Bilirubin,Urine Negative (Negative); Blood,Urine Negative (Negative); Clarity,Urine Cloudy (Clear); Color,Urine Yellow (Yellow); Glucose,Urine (UA) Normal (Normal); Ketones,Urine Negative (Negative); Leukocyte Esterase,Urine Moderate (Negative); Nitrite,Urine Negative (Negative); Protein,Urine Negative (Neg-Trace); Specific Gravity,Urine 1.023 (1.010-1.025); Urobilinogen,Urine Normal (Normal)
[2017-04-07 00:33] LABS: Bacteria,Urine None Seen per hpf (None-Few); Hyaline Casts,Urine None Seen per lpf (None-Few); Squamous Epithelial Cell,Urine Many per lpf (None-Few)
[2017-04-07] MEDS: Vancomycin 750 MG in D5% in Water 250 ML IVPB SCH ×2 (04:23→15:39)
[2017-04-07] MEDS: *HR* Morphine 2 MG/ML SYRINGE IVP PRN ×5 (04:23→21:31)
[2017-04-07] MEDS: *HR* Enoxaparin 40 MG/0.4 ML SYRINGE SQ SCH (05:40)
[2017-04-07 05:43] LABS: Basophils # 0.1 K/mcL (0.0-0.2); Basophils % 1.1 %; Eosinophils # 0.7 K/mcL (0.0-0.6); Eosinophils % 7.9 %; Hematocrit 33.8 % (35.3-44.9); Hemoglobin 10.9 g/dL (11.5-15.4); Immature Granulocytes % 0.5 % (0-4); Lymphocytes # 3.4 K/mcL (0.6-4.6); Lymphocytes % 40.2 %; Mean Corpuscular HGB Conc 32.2 g/dL (31.6-35.5); Mean Corpuscular Hemoglobin 29.5 pg (28.0-33.3); Mean Corpuscular Volume 91.4 fL (83.0-100.0); Mean Platelet Volume 8.4 fL (9.4-12.4); Monocytes # 0.8 K/mcL (0.0-1.3); Neutrophils # 3.5 K/mcL (1.6-8.9); Platelet Count 483 K/mcL (140-400); Red Cell Distribution Width 17.1 % (11.5-14.5); Segmented Neutrophils % 41.3 %
[2017-04-07 06:00] LABS: BUN/Creatinine Ratio 17 (6-26); Blood Urea Nitrogen 11 mg/dL (7-20); Calcium 8.6 mg/dL (8.6-10.8); Carbon Dioxide 24 mEq/L (19-29); Chloride 107 mEq/L (98-109); Glucose 99 mg/dL (70-99); Osmolality,Calculated 281 (280-300); Potassium 3.8 mEq/L (3.5-4.5); Sodium 136 mEq/L (136-145); eGFR For African Americans > 60 (> 60); eGFR For Non-African Americans > 60 (> 60)
[2017-04-07] MEDS ORDERED: *HR* Enoxaparin 30 MG/0.3 ML SYRINGE SQ SCH (06:00)
[2017-04-07] MEDS: Nicotine 21 MG PATCH.TD24 TD SCH (07:30)
[2017-04-07] MEDS: Pantoprazole 40 MG VIAL IVP SCH (07:30)
[2017-04-07] MEDS: *HR* HYDROcodone/Acet 5/325 mg TABLET PO PRN ×2 (07:39→15:43)
--- NOTE | 2017-04-07 16:45 | Infectious Disease Consult ---
Date of Encounter: 04/07/17 Time of Encounter: 16:42 (.) Assessment and Plan (1) Prosthetic joint infection Status: Acute Assessment and plan: Location: Right shoulder. Causative organism MSSA. Secondary to right shoulder surgical wound infection. Ortho consulted and following. Status post right shoulder open I & D, hardware removal, sinus tract excision, and removal of total shoulder hardware 03/12/[address] Ragland. Intra-operative report reviewed. Sinus tract noted down to the hardware. Cement spacer placed. The patient's PCN allergy limits our potential antibiotic choices. Additionally , the patient had a possible reaction to the cefepime during her last hospitalization. Blood cultures drawn 04/06/17 x 2 sets are pending. Check ESR and CRP. Continue Vancomycin IV. Pharmacy to dose. Goal trough ~15. Duration of treatment depends on the clinical picture, but likely 6 weeks of IV antibiotics. The patient has a history of non-compliance in the past and recently signed out AMA from the ECF where she was receiving her IV antibiotics.. I had a discussion with the patient regarding the importance of compliance with the treatment regimen, risks/benefits/alternatives of IV antibiotic therapy, and patient/provider expectations during her course of treatment. She verbalizes understanding and is in agreement to proceed with long -term IV antibiotic therapy. support services coordinator consulted and following to assist with discharge planning. Recommend the patient be placed at an ECF to ensure compliance with medication regimen and avoid concern for misuse of PICC line. Monitor renal function and for drug toxicity and dose-adjust antibiotics. Consult VAT for PICC placement. Qualifiers: Encounter type: initial encounter Qualified Code(s): T84.50XA - Infection and inflammatory reaction due to unspecified internal joint prosthesis, initial encounter (2) Anemia Status: Acute Assessment and plan: Hgb stable. No acute bleeding. Continue to trend. Qualifiers: Anemia type: unspecified type Qualified Code(s): D64.9 - Anemia, unspecified (3) Hepatitis C Status: Acute Assessment and plan: Refer to GI as an outpatient. Qualifiers: Viral hepatitis chronicity: chronic Hepatic coma status: without hepatic coma Qualified Code(s): B18.2 - Chronic viral hepatitis C (4) Polysubstance abuse Status: Acute Assessment and plan: Patient reports last IVDU several weeks ago. HIV negative. Hepatitis C antibody positive. Infectious Disease HPI - Data of Consult Patient: known to practice within the last 3 years Consult date: 04/07/17 Requesting Physician: Gabby Mccurdy MD Primary Care Provider: PCP NONE - Consult Narrative Reason for consult: Right shoulder septic arthritis. History of present illness: Ms. Mcallister is a 32 year old female past medical history of COPD, PTSD, and anxiety. The patient was admitted to the hospital March 17 for right shoulder infection. We are consulted April 07 for further evaluation regarding right shoulder infection. Briefly, the patient's a 32 old female with past medical history as stated above. The patient is known to the infectious disease services were consulted on her case during her most recent hospitalization. At that time, the patient had presented to the emergency department with complaints of severe right shoulder pain and exposed suture. She had been treated by an outside hospital 2 days prior was placed on Bactrim, but she had worsening of her symptoms and had been admitted to the hospital. She had had surgery and was discharged to a local extended care facility to complete her IV antibiotic therapy, but [place], but was unable to be admitted to [facility] at their due to insurance reasons. She states she saw had any IV antibiotics for 2 weeks. She presented to our ER last night with complaints of worsening right shoulder pain, chills, and generally not feeling well. Upon arrival, the patient was afebrile and hemodynamically stable. Her white blood cell count is normal. The patient was started back on IV antibiotics. We've been asked to evaluate and make further recommendations. Exam today, the patient states that overall she feels better since they started back on antibiotics yesterday. She reports some chills with rigors last week. She states she is having worsening shoulder pain. She denies any chest pain, shortness of breath, or cough. She denies any nausea, vomiting, diarrhea, or constipation. She states her appetite is been okay. She states she is willing to complete a 6 week IV antibiotic course and promises she will plan on her AMA from a rehabilitation facility again as a drug use since leaving the hospital except for smoking marijuana. CC: Gabby Mccurdy MD Past Med Surg Social Fam HX - Past Medical History Attestation: Yes The following information was validated with the patient. Source: patient, old records reviewed, nursing notes reviewed Medical history: COPD, hepatitis Psychiatric history: anxiety, PTSD - Past Surgical History Surgical History: cholecystectomy, orthopedic, other, sinus surgery - Social History Smoking Status: Current every day smoker Packs per day: 1 Smokeless Tobacco Status: No Alcohol use: none Drug use: IV Drug Use Occupational status: unemployed Current living situation: Home - Independent Activity Level: Independent ambulation Recent Out of Country Travel Within the Last 8 Weeks: No Exposure or Possible Exposure to Illness During Travel: No - Family History Father Living Status: Still Living Hx Family Cardiac Disorders: Yes (Enlarged heart, HTN) Mother Living Status: Still Living Hx Family Cardiac Disorders: Yes (Unknown specific dx) Hx Family Respiratory Disorders: Yes (copd) Hx Family Medical Disorders: Yes (severe anxiety, manic bipolar) Infectious Disease-CN:Meds No Known Home Drugs 04/06/17 [History] 3 Allergy/AdvReac Type Severity Reaction Status Date / Time clindamycin AdvReac Swelling Verified 03/10/17 18:30 of the Eye Penicillins AdvReac Hives Verified 03/10/17 18:30 All systems: reviewed and no additional remarkable complaints except as stated Exam - Constitutional Vitals: Temp Pulse Resp BP Pulse Ox 98.3 F 75 14 121/61 99 04/07/17 12:36 04/07/17 12:36 04/07/17 12:36 04/07/17 12:36 04/07/17 12:36 General appearance: average body habitus, cooperative, no acute distress - Head Head exam: Present: atraumatic, normal inspection, normocephalic - Eye Eye exam: Present: EOMI, normal appearance, PERRL Pupils: Present: normal accommodation - ENT ENT exam: Present: mucous membranes moist - Neck Neck exam: Present: normal inspection - Respiratory Respiratory exam: Present: CTAB. Absent: rales, respiratory distress, rhonchi, wheezes - Cardiovascular Cardiovascular exam: Present: RRR, +S1, +S2 - GI/Abdominal GI/Abdominal exam: Present: normal bowel sounds, soft. Absent: distended, tenderness - Extremities Exam Extremities exam: Present: joint swelling (Right shoulder), tenderness (Right shoulder and upper arm). Absent: pedal edema Additional comments: Right anterior shoulder surgical site with honeycomb dressing intact. No marked erythema or warmth noted. - Neurological Exam Neurological exam: Present: alert, oriented X3, no focal deficits - Psychiatric Psychiatric exam: Present: normal affect, normal mood - Skin Skin exam: Present: dry, intact, normal color, warm Infectious Disease CN: Results - Labs CBC & Chem 7: 04/07/17 05:20 04/07/17 05:20 Serology: Serology 04/06/17 Range/Units 23:40 Urine Color Yellow (Yellow) Urine Clarity Cloudy A (Clear) Urine pH 7.0 (5.0-8.0) pH Units Ur Specific [place] 1.023 (1.010-1.025) Urine Protein Negative (Neg-Trace) mg/dL Urine Glucose (UA) Normal (Normal) mg/dL Urine Ketones Negative (Negative) mg/dL Urine Blood Negative (Negative) Urine Nitrite Negative (Negative) Urine Bilirubin Negative (Negative) Urine Urobilinogen Normal (Normal) mg/dL Ur Leukocyte Esterase Moderate H (Negative) Urine Microscopic RBC 3-5 H (0-3) per hpf Urine Microscopic WBC 5-15 H (0-3) per hpf Ur Squamous Epith Cells Many H (None-Few) per lpf Urine Bacteria None Seen (None-Few) per hpf Hyaline Casts None Seen (None-Few) per lpf Consult Discharge Plan - Plan Referrals: NONE,PCP [Primary Care Provider] -
--- NOTE | 2017-04-07 16:59 | Orthopedics Progress Note ---
Date of Encounter: 04/07/17 Time of Encounter: 14:30 - Assessment and Plan (1) Surgical site infection Current Visit: Yes Status: Chronic CKeep incision clean and dry. Do not allow dressing to get wet. If becomes 50% or greater saturated, change dressing. May remove dressing in 7 days. Continue with placement to ECF for antibiotic therapy via PICC line per infectious disease regimen. Patient to follow up with [facility] outpatient. Pain control per Hospitalist. Qualifiers: Encounter type: initial encounter Qualified Code(s): T81.4XXA - Infection following a procedure, initial encounter (2) Shoulder pain, right Current Visit: Yes Status: Chronic Qualifiers: Chronicity: chronic Qualified Code(s): M25.511 - Pain in right shoulder Subjective Principal diagnosis: right shoulder pain Interval history: Ms. Mcallister is a 32 year old female presented to the ED after fall. She signed out AMA of ECF appx 2 weeks ago and has not received any IV antibiotics since that time. She admits to right shoulder pain at this time. She had an infected right total shoulder replacement several weeks ago after being noncompliant with orthopedic follow up and presented to [facility] and was admitted and had surgery on 03/12/[address] Ragland: Right shoulder open irrigation and debridement, hardware removal, sinus tract excision, removal of total shoulder replacement. Patient was seen by infectious disease team for medication selection and recommended Vancomycin for 8 weeks via PICC line. Patient's leena that had been in place since 03/12 surgery were removed in ED on 04/06/17 by this provider. Patient resting comfortably in bed. She is alert and oriented. She is in simple blue sling. Inspection right shoulder reveals well healed incision honeycomb opsite intact. Patient elbow and wrist and hand on right side motion intact. Neurovascularly intact. Case discussed with Dr. Ragland. Keep incision clean and dry. Do not allow dressing to get wet. If becomes 50% or greater saturated, change dressing. May remove dressing in 7 days. Continue with placement to ECF for antibiotic therapy via PICC line per infectious disease regimen. Patient to follow up with [facility] outpatient. Pain control per Hospitalist. Objective Vital signs: Vital Signs Temp Pulse Resp BP Pulse Ox 04/07/17 12:36 98.3 F 75 14 121/61 99 04/07/17 07:32 98.0 F 79 15 127/77 99 04/07/17 05:36 98.3 F 68 18 113/65 99 04/07/17 00:24 98.1 F 73 18 156/96 100 04/06/17 20:37 97.8 F 72 15 118/72 98 04/06/17 17:29 97.8 F 81 15 114/79 98 Intake and Output 04/07/17 04/07/17 04/07/17 07:59 15:59 23:59 Intake Total 250 / 250 Output Total 600 / 600 Balance -350 / -350 Intake: IV Fluids 250 / 250 Vancocin 750 MG In Dextrose 5% 250 / 250 250 ML @ 250 mls/hr IVPB Q12H [facility] Rx#:[id number] Output: Urine 600 / 600 Other: # Voids 1 - Labs CBC & BMP: 04/07/17 05:20 04/07/17 05:20 Labs: Abnormal lab results RBC 3.70 M/mcL (3.82-4.97) L 04/07/17 05:20 Hgb 10.9 g/dL (11.5-15.4) L 04/07/17 05:20 Hct 33.8 % (35.3-44.9) L 04/07/17 05:20 RDW 17.1 % (11.5-14.5) H 04/07/17 05:20 Plt Count 483 K/mcL (140-400) H 04/07/17 05:20 MPV 8.4 fL (9.4-12.4) L 04/07/17 05:20 Eosinophils # 0.7 K/mcL (0.0-0.6) H 04/07/17 05:20 ESR 22 mm/hr (0-15) H 04/06/17 12:31 Urine Clarity Cloudy (Clear) A 04/06/17 23:40 Ur Leukocyte Esterase Moderate (Negative) H 04/06/17 23:40 Urine Microscopic RBC 3-5 per hpf (0-3) H 04/06/17 23:40 Urine Microscopic WBC 5-15 per hpf (0-3) H 04/06/17 23:40 Ur Squamous Epith Cells Many per lpf (None-Few) H 04/06/17 23:40 U Benzodiazepines Scrn Positive ng/mL (Hottda=911) H 04/06/17 13:00 U Marijuana (THC) Screen Positive ng/mL (Cutoff = 50) H 04/06/17 13:00 Consult Discharge Plan - Plan Referrals: NONE,PCP [Primary Care Provider] -
--- NOTE | 2017-04-07 17:15 | Electrocardiograph Report ---
[address] [place], [place] [address] Test Date: 2017-04-06 Pat Name: Diana Mcallister Department: 103 Room: [facility] Gender: F [employer]: : 1985 Requested By: Pipo Rivera Order Number: [id number] Reading MD: Chen Barney Measurements Intervals [place] Rate: 82 P: 66 NH: 124 QRS: 59 QRSD: 84 T: 48 QT: 358 QTc: 397 Interpretive Statements SINUS RHYTHM Electronically Signed On 04-07-2017 17:13:50 EDT by Chen Barney
--- NOTE | 2017-04-07 22:44 | Internal Med Progress Note ---
Date of Encounter: 04/07/17 Time of Encounter: 13:00 - Assessment and plan (1) Prosthetic joint infection Current Visit: No Status: Acute Assessment and plan: Of right shoulder s/p I&D, hardware removal, and sinus tract exicsion on . After procedure she was non-compliant to vancomycin treatment. Wound cultures grew MSSA at that time. She has penicillin allergy with possible allergy to cefepime as well. ID and Ortho following. Follow-up blood cultures 04/06 Continue vancomycin, likely 6 weeks duration. Will need to complete therapy at [facility] to ensure compliance. Social service to assist with discharge planning. Qualifiers: Encounter type: initial encounter Qualified Code(s): T84.50XA - Infection and inflammatory reaction due to unspecified internal joint prosthesis, initial encounter (2) DVT prophylaxis Current Visit: No Status: Acute (3) Polysubstance abuse Current Visit: No Status: Acute (4) Anemia Current Visit: No Status: Acute Qualifiers: Anemia type: unspecified type Qualified Code(s): D64.9 - Anemia, unspecified (5) Hepatitis C Current Visit: No Status: Acute Qualifiers: Viral hepatitis chronicity: chronic Hepatic coma status: without hepatic coma Qualified Code(s): B18.2 - Chronic viral hepatitis C - Subjective Interval history: Denies fevers/chills, n/v, diaphoresis. States that pain is better right now taking [place] and Morphine prn. - Constitutional Vitals: Temp Pulse Resp BP Pulse Ox 98.7 F 79 16 146/76 99 04/07/17 20:01 04/07/17 20:01 04/07/17 20:01 04/07/17 20:01 04/07/17 20:01 General appearance: Present: A&O X 3, answers questions appropriately Exam: - Neck Neck exam general surgery: Present: supple, trachea midline. Absent: lymphadenopathy - Respiratory Respiratory exam: Present: rhonchi. Absent: accessory muscle use, rales, wheezes - Cardiovascular Cardiovascular exam: Present: RRR, +S1, +S2. Absent: diastolic murmur, gallop, rubs, systolic murmur - Extremities Exam Extremities exam: Present: warm, radial pulses palpable and symmetrical. Absent : calf tenderness, cyanotic, pedal edema - Expanded Upper Extremities Exam Shoulder exam: Present: tenderness, tenderness over AC joint - Incison Incision: Present: intact, erythema, approximated - Skin Skin exam: Present: dry, intact Internal Medicine: Result - Labs CBC & Chem 7: 04/07/17 05:20 04/07/17 05:20 Labs: Short CBC 04/07/17 Range/Units 05:20 WBC 8.4 (4.3-11.1) K/mcL Hgb 10.9 L (11.5-15.4) g/dL Hct 33.8 L (35.3-44.9) % Plt Count 483 H (140-400) K/mcL Neutrophils # 3.5 (1.6-8.9) K/mcL BMP 04/07/17 05:20 Sodium 136 Potassium 3.8 Chloride 107 Carbon Dioxide 24 BUN 11 Creatinine 0.65 Glucose 99 Calcium 8.6 Urine 04/06/17 Range/Units 23:40 Urine Color Yellow (Yellow) Urine Clarity Cloudy A (Clear) Urine pH 7.0 (5.0-8.0) pH Units Ur Specific [place] 1.023 (1.010-1.025) Urine Protein Negative (Neg-Trace) mg/dL Urine Glucose (UA) Normal (Normal) mg/dL Consult Discharge Plan - Plan Referrals: NONE,PCP [Primary Care Provider] -
[2017-04-08] MEDS: *HR* Morphine 2 MG/ML SYRINGE IVP PRN ×6 (01:58→23:27)
[2017-04-08] MEDS: Vancomycin 1,000 MG in D5% in Water 250 ML IVPB SCH ×2 (04:41→14:40)
[2017-04-08] MEDS: *HR* HYDROcodone/Acet 5/325 mg TABLET PO PRN ×3 (04:46→17:29)
[2017-04-08] MEDS: *HR* Enoxaparin 40 MG/0.4 ML SYRINGE SQ SCH (06:20)
[2017-04-08] MEDS: Pantoprazole 40 MG VIAL IVP SCH (08:25)
[2017-04-08] MEDS: Nicotine 21 MG PATCH.TD24 TD SCH (08:25)
[2017-04-08 10:11] LABS: Basophils # 0.1 K/mcL (0.0-0.2); Basophils % 0.9 %; Eosinophils # 0.6 K/mcL (0.0-0.6); Eosinophils % 6.2 %; Hemoglobin 11.7 g/dL (11.5-15.4); Immature Granulocytes % 0.2 % (0-4); Lymphocytes % 39.2 %; Mean Corpuscular HGB Conc 31.6 g/dL (31.6-35.5); Mean Corpuscular Hemoglobin 28.9 pg (28.0-33.3); Mean Corpuscular Volume 91.4 fL (83.0-100.0); Mean Platelet Volume 9.1 fL (9.4-12.4); Monocytes # 0.7 K/mcL (0.0-1.3); Monocytes % 7.1 %; Neutrophils # 4.8 K/mcL (1.6-8.9); Platelet Count 499 K/mcL (140-400); Red Blood Count 4.05 M/mcL (3.82-4.97); Red Cell Distribution Width 17.2 % (11.5-14.5); Segmented Neutrophils % 46.4 %
[2017-04-08 10:28] LABS: BUN/Creatinine Ratio 19 (6-26); Blood Urea Nitrogen 13 mg/dL (7-20); Calcium 9.1 mg/dL (8.6-10.8); Carbon Dioxide 23 mEq/L (19-29); Chloride 106 mEq/L (98-109); Glucose 84 mg/dL (70-99); Osmolality,Calculated 283 (280-300); Sodium 137 mEq/L (136-145); eGFR For African Americans > 60 (> 60); eGFR For Non-African Americans > 60 (> 60)
--- NOTE | 2017-04-08 14:09 | Infectious Disease Progress No ---
Date of Encounter: 04/08/17 Time of Encounter: 14:07 - Assessment and Plan (1) Prosthetic joint infection Current Visit: No Status: Acute Location: Right shoulder. Causative organism MSSA. Secondary to right shoulder surgical wound infection. Ortho consulted and following. Status post right shoulder open I & D, hardware removal, sinus tract excision, and removal of total shoulder hardware 03/12/[address] Ragland. Intra-operative report reviewed. Sinus tract noted down to the hardware. Cement spacer placed. The patient's PCN allergy limits our potential antibiotic choices. Additionally , the patient had a possible reaction to the cefepime during her last hospitalization. Blood cultures drawn 04/06/17 x 2 sets are NGTD. ESR 22, CRP 1. Continue Vancomycin IV. Pharmacy to dose. Goal trough ~15. Duration of treatment depends on the clinical picture, but likely 6 weeks of IV antibiotics. The patient has a history of non-compliance in the past and recently signed out AMA from the ECF where she was receiving her IV antibiotics. I had a discussion with the patient regarding the importance of compliance with the treatment regimen, risks/benefits/alternatives of IV antibiotic therapy, and patient/provider expectations during her course of treatment. She verbalizes understanding and is in agreement to proceed with long -term IV antibiotic therapy. client services representative consulted and following to assist with discharge planning. Recommend the patient be placed at an ECF to ensure compliance with medication regimen and avoid concern for misuse of PICC line. Monitor renal function and for drug toxicity and dose-adjust antibiotics. Consult VAT for PICC placement. Qualifiers: Encounter type: initial encounter Qualified Code(s): T84.50XA - Infection and inflammatory reaction due to unspecified internal joint prosthesis, initial encounter (2) Anemia Current Visit: No Status: Acute Hgb stable. No acute bleeding. Continue to trend. Qualifiers: Anemia type: unspecified type Qualified Code(s): D64.9 - Anemia, unspecified (3) Hepatitis C Current Visit: No Status: Acute Refer to GI as an outpatient. Qualifiers: Viral hepatitis chronicity: chronic Hepatic coma status: without hepatic coma Qualified Code(s): B18.2 - Chronic viral hepatitis C (4) Polysubstance abuse Current Visit: No Status: Acute Patient reports last IVDU several weeks ago. HIV negative. Hepatitis C antibody positive. - Subjective Interval history: Patient seen and examined. No acute events noted overnight. Patient reports worsening pain in the underside of her right arm. Denies fevers, chills or rigors. Denies chest pain, shortness of breath, or cough. Denies nausea, vomiting, or abdominal pain. Denies urinary complaints. Denies oral thrush or skin lesions. Infect Dis PN-Objective Data - Labs CBC & Chem 7: 04/08/17 09:41 04/08/17 09:41 Labs: Laboratory Results - last 24 hr 04/08/17 04/08/17 04/08/17 03:12 03:12 03:12 WBC RBC Hgb Hct MCV MCH MCHC RDW Plt Count MPV Immature Gran % Seg Neutrophils % Lymphocytes % Monocytes % Eosinophils % Basophils % Neutrophils # Lymphocytes # Monocytes # Eosinophils # Basophils # ESR 11 Sodium Potassium Chloride Carbon Dioxide BUN Creatinine Est GFR ( Amer) Est GFR (Non-Af Amer) BUN/Creatinine Ratio Glucose Calculated Osmolality Calcium C-Reactive Protein 1 Vancomycin Trough 7.5 L 04/08/17 04/08/17 09:41 09:41 WBC 10.3 RBC 4.05 Hgb 11.7 Hct 37.0 MCV 91.4 MCH 28.9 MCHC 31.6 RDW 17.2 H Plt Count 499 H MPV 9.1 L Immature Gran % 0.2 Seg Neutrophils % 46.4 Lymphocytes % 39.2 Monocytes % 7.1 Eosinophils % 6.2 Basophils % 0.9 Neutrophils # 4.8 Lymphocytes # 4.0 Monocytes # 0.7 Eosinophils # 0.6 Basophils # 0.1 ESR Sodium 137 Potassium 4.0 Chloride 106 Carbon Dioxide 23 BUN 13 Creatinine 0.69 Est GFR ( Amer) > 60 Est GFR (Non-Af Amer) > 60 BUN/Creatinine Ratio 19 Glucose 84 Calculated Osmolality 283 Calcium 9.1 C-Reactive Protein Vancomycin Trough Cultures: Cultures 04/06/17 22:06 Blood Culture - Preliminary Peripheral Venipuncture No growth. 04/06/17 22:05 Blood Culture - Preliminary Peripheral Venipuncture No growth. Serology 04/06/17 Range/Units 23:40 Urine Color Yellow (Yellow) Urine Clarity Cloudy A (Clear) Urine pH 7.0 (5.0-8.0) pH Units Ur Specific [place] 1.023 (1.010-1.025) Urine Protein Negative (Neg-Trace) mg/dL Urine Glucose (UA) Normal (Normal) mg/dL Urine Ketones Negative (Negative) mg/dL Urine Blood Negative (Negative) Urine Nitrite Negative (Negative) Urine Bilirubin Negative (Negative) Urine Urobilinogen Normal (Normal) mg/dL Ur Leukocyte Esterase Moderate H (Negative) Urine Microscopic RBC 3-5 H (0-3) per hpf Urine Microscopic WBC 5-15 H (0-3) per hpf Ur Squamous Epith Cells Many H (None-Few) per lpf Urine Bacteria None Seen (None-Few) per hpf Hyaline Casts None Seen (None-Few) per lpf Exam - Constitutional Vitals: Temp Pulse Resp BP Pulse Ox 98.7 F 85 16 149/71 99 04/08/17 10:43 04/08/17 10:43 04/08/17 10:43 04/08/17 10:43 04/08/17 10:43 General appearance: average body habitus, cooperative, no acute distress - Head Head exam: Present: atraumatic, normal inspection, normocephalic - Eye Eye exam: Present: EOMI, normal appearance, PERRL Pupils: Present: normal accommodation - ENT ENT exam: Present: mucous membranes moist - Neck Neck exam: Present: normal inspection - Respiratory Respiratory exam: Present: CTAB. Absent: rales, respiratory distress, rhonchi, wheezes - Cardiovascular Cardiovascular exam: Present: RRR, +S1, +S2 - GI/Abdominal GI/Abdominal exam: Present: normal bowel sounds, soft. Absent: distended, tenderness - Extremities Exam Extremities exam: Present: joint swelling (right shoulder), tenderness (right shoulder and upper arm). Absent: pedal edema Additional comments: Right anterior shoulder incision with honeycomb dressing C/D/I. - Neurological Exam Neurological exam: Present: alert, oriented X3, no focal deficits - Psychiatric Psychiatric exam: Present: normal affect, normal mood - Skin Skin exam: Present: dry, intact, normal color, warm Consult Discharge Plan - Plan Referrals: NONE,PCP [Primary Care Provider] -
--- NOTE | 2017-04-08 17:04 | Orthopedics Progress Note ---
Date of Encounter: 04/08/17 Time of Encounter: 13:00 - Assessment and Plan (1) Septic joint Current Visit: Yes Status: Acute Status post Right Shoulder Removal of hardware, placement of cement spacer. 03/12 Keep incision clean and dry. Do not allow dressing to get wet. If becomes 50% or greater saturated, change dressing. May remove dressing in 7 days. Continue with placement to ECF for antibiotic therapy via PICC line per infectious disease regimen. Patient to follow up with [facility] outpatient. Pain control per Hospitalist Qualifiers: Septic arthritis location: shoulder Septic arthritis organism: staphylococcal Laterality: right Qualified Code(s): M00.011 - Staphylococcal arthritis, right shoulder (2) Polysubstance abuse Current Visit: Yes Status: Acute (3) COPD (chronic obstructive pulmonary disease) Current Visit: No Status: Acute Qualifiers: COPD type: unspecified COPD Qualified Code(s): J44.9 - Chronic obstructive pulmonary disease, unspecified (4) Hepatitis C Current Visit: No Status: Acute Qualifiers: Viral hepatitis chronicity: chronic Hepatic coma status: without hepatic coma Qualified Code(s): B18.2 - Chronic viral hepatitis C Subjective Principal diagnosis: right shoulder pain Interval history: Hospital Day #2 Ms. Mcallister is a 32 year old female presented to the ED after fall. She signed out AMA of ECF appx 2 weeks ago and has not received any IV antibiotics since that time. She admits to right shoulder pain at this time. She had an infected right total shoulder replacement several weeks ago after being noncompliant with orthopedic follow up and presented to [facility] and was admitted and had surgery on 03/12/[address] Ragland: Right shoulder open irrigation and debridement, hardware removal, sinus tract excision, removal of total shoulder replacement. Patient was seen by infectious disease team for medication selection and recommended Vancomycin for 8 weeks via PICC line. Patient's leena that had been in place since 03/12 surgery were removed in ED on 04/06/17 by this provider. 04/08/17 - Patient resting comfortably in bed. She is alert and oriented. She is in simple blue sling. Inspection right shoulder reveals well healed incision honeycomb opsite intact. Patient elbow and wrist and hand on right side motion intact. Neurovascularly intact. Case discussed with Dr. Ragland. Keep incision clean and dry. Do not allow dressing to get wet. If becomes 50% or greater saturated, change dressing. May remove dressing in 7 days. Continue with placement to ECF for antibiotic therapy via PICC line per infectious disease regimen. Patient to follow up with [facility] outpatient. Pain control per Hospitalist. Objective Vital signs: Vital Signs Temp Pulse Resp BP Pulse Ox 04/08/17 14:52 98.5 F 97 16 143/78 99 04/08/17 10:43 98.7 F 85 16 149/71 99 04/08/17 06:54 98.4 F 81 16 134/78 98 04/07/17 23:30 98.0 F 76 16 132/80 99 04/07/17 20:01 98.7 F 79 16 146/76 99 04/07/17 17:38 98.2 F 72 15 126/75 98 Intake and Output 04/08/17 04/08/17 04/08/17 07:59 15:59 23:59 Intake Total 250 / 250 840 / 840 Output Total 900 / 900 350 / 350 Balance -650 / -650 490 / 490 Intake: IV Fluids 250 / 250 Vancocin 1,000 MG In Dextrose 5 250 / 250 % 250 ML @ 167 mls/hr IVPB Q12H [facility] Rx#:[id number] Oral 840 / 840 Output: Urine 900 / 900 350 / 350 Other: Meal Lunch Percent of Meal Consumed 90% # Bowel Movements 1 - Labs CBC & BMP: 04/08/17 09:41 04/08/17 09:41 Labs: Abnormal lab results RDW 17.2 % (11.5-14.5) H 04/08/17 09:41 Plt Count 499 K/mcL (140-400) H 04/08/17 09:41 MPV 9.1 fL (9.4-12.4) L 04/08/17 09:41 Urine Clarity Cloudy (Clear) A 04/06/17 23:40 Ur Leukocyte Esterase Moderate (Negative) H 04/06/17 23:40 Urine Microscopic RBC 3-5 per hpf (0-3) H 04/06/17 23:40 Urine Microscopic WBC 5-15 per hpf (0-3) H 04/06/17 23:40 Ur Squamous Epith Cells Many per lpf (None-Few) H 04/06/17 23:40 Vancomycin Trough 7.5 mcg/mL (10-20) L 04/08/17 03:12 U Benzodiazepines Scrn Positive ng/mL (Nmqosn=557) H 04/06/17 13:00 U Marijuana (THC) Screen Positive ng/mL (Cutoff = 50) H 04/06/17 13:00 Consult Discharge Plan - Plan Referrals: NONE,PCP [Primary Care Provider] -
[2017-04-08] MEDS ORDERED: *HR* HYDROcodone/Acet 7.5/325 mg TABLET PO PRN (21:19)
[2017-04-08] MEDS ORDERED: *HR* Morphine 2 MG/ML SYRINGE IVP PRN (21:22)
[2017-04-08] MEDS: *HR* HYDROcodone/Acet 7.5/325 mg TABLET PO PRN (21:49)
[2017-04-09] MEDS ORDERED: *HR* HYDROcodone/Acet 7.5/325 mg TABLET PO SCH
[2017-04-09] MEDS: *HR* HYDROcodone/Acet 7.5/325 mg TABLET PO PRN ×5 (02:03→23:46)
[2017-04-09] MEDS: *HR* Morphine 2 MG/ML SYRINGE IVP PRN ×5 (03:32→20:57)
[2017-04-09] MEDS: Vancomycin 1,250 MG in D5% in Water 250 ML IVPB SCH ×2 (03:32→16:02)
[2017-04-09 04:04] LABS: Basophils # 0.1 K/mcL (0.0-0.2); Basophils % 0.7 %; Eosinophils # 0.5 K/mcL (0.0-0.6); Eosinophils % 7.5 %; Hematocrit 30.3 % (35.3-44.9); Immature Granulocytes % 0.3 % (0-4); Lymphocytes # 2.8 K/mcL (0.6-4.6); Lymphocytes % 40.9 %; Mean Corpuscular HGB Conc 32.3 g/dL (31.6-35.5); Mean Corpuscular Hemoglobin 29.1 pg (28.0-33.3); Mean Corpuscular Volume 89.9 fL (83.0-100.0); Mean Platelet Volume 8.7 fL (9.4-12.4); Monocytes # 0.6 K/mcL (0.0-1.3); Monocytes % 8.7 %; Neutrophils # 2.8 K/mcL (1.6-8.9); Platelet Count 408 K/mcL (140-400); Red Blood Count 3.37 M/mcL (3.82-4.97); Red Cell Distribution Width 17.2 % (11.5-14.5); Segmented Neutrophils % 41.9 %
[2017-04-09 04:15] LABS: BUN/Creatinine Ratio 23 (6-26); Blood Urea Nitrogen 15 mg/dL (7-20); Calcium 8.8 mg/dL (8.6-10.8); Carbon Dioxide 25 mEq/L (19-29); Chloride 105 mEq/L (98-109); Glucose 89 mg/dL (70-99); Osmolality,Calculated 284 (280-300); Potassium 3.9 mEq/L (3.5-4.5); Sodium 137 mEq/L (136-145); eGFR For African Americans > 60 (> 60); eGFR For Non-African Americans > 60 (> 60)
[2017-04-09 04:35] LABS: Hemoglobin 9.8 g/dL (11.5-15.4)
[2017-04-09] MEDS: *HR* Enoxaparin 40 MG/0.4 ML SYRINGE SQ SCH (05:17)
[2017-04-09] MEDS: Nicotine 21 MG PATCH.TD24 TD SCH (08:03)
[2017-04-09] MEDS: Pantoprazole 40 MG VIAL IVP SCH (08:04)
--- NOTE | 2017-04-09 08:37 | Internal Med Progress Note ---
Date of Encounter: 04/08/17 Time of Encounter: 16:00 - Assessment and plan (1) Prosthetic joint infection Current Visit: No Status: Acute Assessment and plan: Of right shoulder s/p I&D, hardware removal, and sinus tract exicsion on . After procedure she was non-compliant to vancomycin treatment. Wound cultures grew MSSA at that time. She has penicillin allergy with possible allergy to cefepime as well. Lung cultures on 04/06 are no growth to date 2. Continue vancomycin, likely 6 weeks duration. Will need to complete therapy at [facility] to ensure compliance. Social service to assist with discharge planning. Qualifiers: Encounter type: initial encounter Qualified Code(s): T84.50XA - Infection and inflammatory reaction due to unspecified internal joint prosthesis, initial encounter (2) DVT prophylaxis Current Visit: No Status: Acute (3) Polysubstance abuse Current Visit: Yes Status: Acute (4) Anemia Current Visit: No Status: Acute Qualifiers: Anemia type: unspecified type Qualified Code(s): D64.9 - Anemia, unspecified (5) Hepatitis C Current Visit: No Status: Acute Qualifiers: Viral hepatitis chronicity: chronic Hepatic coma status: without hepatic coma Qualified Code(s): B18.2 - Chronic viral hepatitis C - Subjective Interval history: Denies fevers/chills, n/v, diaphoresis. Morphine and Hesperus dose had to the increased slightly due to breakthrough pain last night - Constitutional Vitals: Temp Pulse Resp BP Pulse Ox 98.3 F 74 16 134/76 99 04/09/17 06:38 04/09/17 06:38 04/09/17 06:38 04/09/17 06:38 04/09/17 06:38 General appearance: Present: A&O X 3, answers questions appropriately Exam: - Neck Neck exam general surgery: Present: supple, trachea midline. Absent: lymphadenopathy - Respiratory Respiratory exam: Present: rhonchi. Absent: accessory muscle use, rales, wheezes - Cardiovascular Cardiovascular exam: Present: RRR, +S1, +S2. Absent: diastolic murmur, gallop, rubs, systolic murmur - Extremities Exam Extremities exam: Present: warm, radial pulses palpable and symmetrical. Absent : calf tenderness, cyanotic, pedal edema - Expanded Upper Extremities Exam Shoulder exam: Present: tenderness, tenderness over AC joint. Right shoulder joint is limited range of motion secondary to pain. - Incison Incision: Present: intact, erythema, approximated - Skin Skin exam: Present: dry, intact Internal Medicine: Result - Labs CBC & Chem 7: 04/09/17 03:35 04/09/17 03:35 Labs: Short CBC 04/08/17 04/09/17 Range/Units 09:41 03:35 WBC 10.3 6.8 (4.3-11.1) K/mcL Hgb 11.7 9.8 L D (11.5-15.4) g/dL Hct 37.0 30.3 L (35.3-44.9) % Plt Count 499 H 408 H (140-400) K/mcL Neutrophils # 4.8 2.8 (1.6-8.9) K/mcL BMP 04/08/17 04/09/17 09:41 03:35 Sodium 137 137 Potassium 4.0 3.9 Chloride 106 105 Carbon Dioxide 23 25 BUN 13 15 Creatinine 0.69 0.64 Glucose 84 89 Calcium 9.1 8.8 Consult Discharge Plan - Plan Referrals: NONE,PCP [Primary Care Provider] -
--- NOTE | 2017-04-09 08:42 | Discharge Summary ---
Date of Encounter: 04/09/17 Time of Encounter: 08:38 - Discharge Diagnosis (1) Prosthetic joint infection Priority: Primary Status: Acute Qualifiers: Encounter type: initial encounter Qualified Code(s): T84.50XA - Infection and inflammatory reaction due to unspecified internal joint prosthesis, initial encounter (2) DVT prophylaxis Priority: Secondary Status: Acute (3) Polysubstance abuse Priority: Secondary Status: Acute (4) Anemia Priority: Secondary Status: Acute Qualifiers: Anemia type: unspecified type Qualified Code(s): D64.9 - Anemia, unspecified (5) Hepatitis C Priority: Secondary Status: Acute Qualifiers: Viral hepatitis chronicity: chronic Hepatic coma status: without hepatic coma Qualified Code(s): B18.2 - Chronic viral hepatitis C - Discharge Medications Prescriptions: HYDROcodone/Acet 7.5/325 mg [Kings[place] 7.5-325 mg] 1 tab PO Q6H PRN #30 tablet PRN Reason: Pain Naproxen [Naprosyn] 500 mg PO BIDWM 7 Days #14 tablet Nicotine Patch [Nicoderm] 21 mg TD DAILY #30 patch.td24 Pantoprazole Sodium [Protonix] 40 mg PO DAILY #14 tablet. Vancomycin HCl in Dextrose 5 % [Vancomycin-D5w 1.25 Gram/250Ml] 1.25 gm IV Q12H #80491 mls Home Medications: HYDROcodone/Acet 7.5/325 mg [Kingsland 7.5-325 mg] 1 tab PO Q6H PRN #30 tablet 04/09 [Rx] Naproxen [Naprosyn] 500 mg PO BIDWM 7 Days #14 tablet 04/09/17 [Rx] Nicotine Patch [Nicoderm] 21 mg TD DAILY #30 patch.td24 04/09/17 [Rx] Pantoprazole Sodium [Protonix] 40 mg PO DAILY #14 tablet. 04/09/17 [Rx] Vancomycin HCl in Dextrose 5 % [Vancomycin-D5w 1.25 Gram/250Ml] 1.25 gm IV Q12H #01949 mls 04/09/17 [Rx] Allergies/Adverse Reactions: 3 Allergy/AdvReac Type Severity Reaction Status Date / Time clindamycin AdvReac Swelling Verified 03/10/17 18:30 of the Eye Penicillins AdvReac Hives Verified 03/10/17 18:30 Date of admission: 04/06/17 15:59 Primary care physician: PCP NONE Consults: 04/06/17 17:19 Consult to Nutrition [CONS] Routine Comment: Consulting Provider: NUTRITION Reason for Dietary Consult: MST Score Discharging clinician: Georgie Cristobal - Patient Status Disposition: Transfer SNF Condition: Good Functional capacity at discharge: independent ambulation Overall status at discharge: patient is progressing back to baseline - Ambulatory Orders Ambulatory Orders: Vancomycin,Trough [CHEM] Time Frame: 6 Weeks, Facility: [facility], Location: Lab - Discharge Instructions Follow Up With: Tracy Osorio [employer] [Advanced Practice Nurse] - 04/26/17 8:40 am NONE,PCP [Primary Care Provider] - Additional Instructions: Follow up with [facility] - Diet and Activity Activity: increase activity as tolerated Diet: advance to your usual diet Hospital course: Ms. Mcallister is a 32 year old female past medical history of hepatitis C, nonhealing wound at his post total shoulder replacement-complicated by periprosthetic humerus fracture history of IV drug abuse. 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 She had had right total shoulder replacement secondary to a fall down the stairs and was complicated by a period prosthetic humerus fracture. She had been seen by orthopedics and underwent right shoulder open irrigation and debridement hardware removal and sinus tract excision removal of total shoulder replacement. As well as she was seen by infectious disease wound culture grew MSSA initiated on vancomycin. She was discharged to a longterm in March 15 for 8 weeks of vancomycin to avoid concerns of inappropriate use of PICC due to history of IVDA. However the patient signed out AMA because she wanted to be transferred to another facility at [place] to be closer to her brother. Her insurance company declined to pay for the treatment and she returned to the ER in order to receive antibiotics and be readmitted to the longterm. She did not received antibiotics for approximately 2 weeks. She also had a fall 1 day prior to admission after she became lightheaded and fell onto her right arm. She denies any recent IV drug use however does admit to marijuana use. ER physician did consult Dr. Ragland as well as placed PICC line. She has been admitted for further workup and evaluation. Presently patient does complain of right shoulder pain. She does have leena that are intact incision is tender to palpation patient states she was supposed to have her leena out approximately 1 week ago. Incision was slightly red with drainage pulses are present no swelling noted. She was not septic upon arrival. Infectious disease and orthopedics were consulted. She does have a documented penicillin allergy, as well as a possible reaction to cefepime during her last hospitalization.Blood cultures were obtained and she was started on vancomycin. PICC line was placed. Load Cultures were obtained on at 2200, it has been greater than 48 hours and blood cultures are no growth to date. There was discharge planning issues, as some facilities at policies against patients with IV drug abuse with PICC lines placed. - Time Spent with Patient Total time spent providing and/or coordinating discharge services: Greater than 30 minutes - Constitutional Vitals: Temp Pulse Resp BP Pulse Ox 98.3 F 74 16 134/76 99 04/09/17 06:38 04/09/17 06:38 04/09/17 06:38 04/09/17 06:38 04/09/17 06:38 General appearance: Present: A&O X 3, answers questions appropriately Exam: - Head Head exam: Present: atraumatic, normal inspection, normocephalic - ENT ENT exam: Present: mucous membranes moist - Neck Neck exam: Present: normal inspection - Respiratory Respiratory exam: Present: CTAB. Absent: rales, respiratory distress, rhonchi, wheezes - Cardiovascular Cardiovascular exam: Present: RRR, +S1, +S2 - Extremities Exam Extremities exam: Present: joint swelling (right shoulder), tenderness (right shoulder and upper arm). Absent: pedal edema Additional comments: Right anterior shoulder incision with honeycomb dressing C/D/I. - Skin Skin exam: Present: dry, intact, normal color, warm
--- NOTE | 2017-04-09 11:10 | Infectious Disease Progress No ---
Date of Encounter: 04/09/17 Time of Encounter: 11:07 - Assessment and Plan (1) Prosthetic joint infection Current Visit: No Status: Acute Location: Right shoulder. Causative organism MSSA. Secondary to right shoulder surgical wound infection. Ortho consulted and following. Status post right shoulder open I & D, hardware removal, sinus tract excision, and removal of total shoulder hardware 03/12/[address] Ragland. Intra-operative report reviewed. Sinus tract noted down to the hardware. Cement spacer placed. The patient's PCN allergy limits our potential antibiotic choices. Additionally , the patient had a possible reaction to the cefepime during her last hospitalization. Blood cultures drawn 04/06/17 x 2 sets are NGTD. ESR 22, CRP 1. Continue Vancomycin IV. Pharmacy to dose. Goal trough ~15. Duration of treatment depends on the clinical picture, but likely 6 weeks of IV antibiotics. The patient has a history of non-compliance in the past and recently signed out AMA from the ECF where she was receiving her IV antibiotics. I had a discussion with the patient regarding the importance of compliance with the treatment regimen, risks/benefits/alternatives of IV antibiotic therapy, and patient/provider expectations during her course of treatment. She verbalizes understanding and is in agreement to proceed with long -term IV antibiotic therapy. business services representative consulted and following to assist with discharge planning. Recommend the patient be placed at an ECF to ensure compliance with medication regimen and avoid concern for misuse of PICC line. Monitor renal function and for drug toxicity and dose-adjust antibiotics. PICC line placed 04/08/17. Will need weekly CBC, BUN/Cr, ESR, CRP, and Vanc trough every Wednesday for the duration of treatment. Weekly PICC care per protocol. Follow up with ID 04/26/17 at 0840. Qualifiers: Encounter type: initial encounter Qualified Code(s): T84.50XA - Infection and inflammatory reaction due to unspecified internal joint prosthesis, initial encounter (2) Anemia Current Visit: No Status: Acute Hgb stable. No acute bleeding. Continue to trend. Qualifiers: Anemia type: unspecified type Qualified Code(s): D64.9 - Anemia, unspecified (3) Hepatitis C Current Visit: No Status: Acute Refer to GI as an outpatient. Qualifiers: Viral hepatitis chronicity: chronic Hepatic coma status: without hepatic coma Qualified Code(s): B18.2 - Chronic viral hepatitis C (4) Polysubstance abuse Current Visit: Yes Status: Acute Patient reports last IVDU several weeks ago. HIV negative. Hepatitis C antibody positive. - Subjective Interval history: Patient seen and examined. No acute events noted overnight. Patient reports pain is better today. Denies fevers, chills or rigors. Denies chest pain, shortness of breath, or cough. Denies nausea, vomiting, or abdominal pain. Denies urinary complaints. Denies oral thrush or skin lesions. Infect Dis PN-Objective Data - Labs CBC & Chem 7: 04/09/17 03:35 04/09/17 03:35 Labs: Laboratory Results - last 24 hr 04/09/17 04/09/17 03:35 03:35 WBC 6.8 RBC 3.37 L Hgb 9.8 L D Hct 30.3 L MCV 89.9 MCH 29.1 MCHC 32.3 RDW 17.2 H Plt Count 408 H MPV 8.7 L Immature Gran % 0.3 Seg Neutrophils % 41.9 Lymphocytes % 40.9 Monocytes % 8.7 Eosinophils % 7.5 Basophils % 0.7 Neutrophils # 2.8 Lymphocytes # 2.8 Monocytes # 0.6 Eosinophils # 0.5 Basophils # 0.1 Sodium 137 Potassium 3.9 Chloride 105 Carbon Dioxide 25 BUN 15 Creatinine 0.64 Est GFR ( Amer) > 60 Est GFR (Non-Af Amer) > 60 BUN/Creatinine Ratio 23 Glucose 89 Calculated Osmolality 284 Calcium 8.8 Cultures: Cultures 04/06/17 22:06 Blood Culture - Preliminary Peripheral Venipuncture No growth. 04/06/17 22:05 Blood Culture - Preliminary Peripheral Venipuncture No growth. Serology 04/06/17 Range/Units 23:40 Urine Color Yellow (Yellow) Urine Clarity Cloudy A (Clear) Urine pH 7.0 (5.0-8.0) pH Units Ur Specific [place] 1.023 (1.010-1.025) Urine Protein Negative (Neg-Trace) mg/dL Urine Glucose (UA) Normal (Normal) mg/dL Urine Ketones Negative (Negative) mg/dL Urine Blood Negative (Negative) Urine Nitrite Negative (Negative) Urine Bilirubin Negative (Negative) Urine Urobilinogen Normal (Normal) mg/dL Ur Leukocyte Esterase Moderate H (Negative) Urine Microscopic RBC 3-5 H (0-3) per hpf Urine Microscopic WBC 5-15 H (0-3) per hpf Ur Squamous Epith Cells Many H (None-Few) per lpf Urine Bacteria None Seen (None-Few) per hpf Hyaline Casts None Seen (None-Few) per lpf Exam - Constitutional Vitals: Temp Pulse Resp BP Pulse Ox 98.3 F 74 16 134/76 99 04/09/17 06:38 04/09/17 06:38 04/09/17 06:38 04/09/17 06:38 04/09/17 06:38 General appearance: average body habitus, cooperative, no acute distress - Head Head exam: Present: atraumatic, normal inspection, normocephalic - Eye Eye exam: Present: EOMI, normal appearance, PERRL Pupils: Present: normal accommodation - ENT ENT exam: Present: mucous membranes moist - Neck Neck exam: Present: normal inspection - Respiratory Respiratory exam: Present: CTAB. Absent: rales, respiratory distress, rhonchi, wheezes - Cardiovascular Cardiovascular exam: Present: RRR, +S1, +S2 - GI/Abdominal GI/Abdominal exam: Present: normal bowel sounds, soft. Absent: distended, tenderness - Extremities Exam Extremities exam: Present: joint swelling (right shoulder), tenderness (right shoulder). Absent: pedal edema Additional comments: Right anterior shoulder surgical incision with honeycomb dressing C/D/I. Arm remains in sling. + PMS to the distal extremity. - Neurological Exam Neurological exam: Present: alert, oriented X3, no focal deficits - Psychiatric Psychiatric exam: Present: normal affect, normal mood - Skin Skin exam: Present: dry, intact, normal color, warm Consult Discharge Plan - Plan Additional Instructions: Follow up with [facility] Referrals: NONE,PCP [Primary Care Provider] - Tracy Osorio, [employer] [Advanced Practice Nurse] - 04/26/17 8:40 am Prescriptions: HYDROcodone/Acet 7.5/325 mg [[place] 7.5-325 mg] 1 tab PO Q6H PRN #30 tablet PRN Reason: Pain Naproxen [Naprosyn] 500 mg PO BIDWM 7 Days #14 tablet Nicotine Patch [Nicoderm] 21 mg TD DAILY #30 patch.td24 Pantoprazole Sodium [Protonix] 40 mg PO DAILY #14 tablet. Vancomycin HCl in Dextrose 5 % [Vancomycin-D5w 1.25 Gram/250Ml] 1.25 gm IV Q12H #53391 mls
[2017-04-09] MEDS ORDERED: 0.9 % Sodium Chloride 1,000 ML IVC ONE (17:50)
--- NOTE | 2017-04-09 19:10 | Orthopedics Progress Note ---
Date of Encounter: 04/09/17 Time of Encounter: 12:00 - Assessment and Plan (1) Surgical site infection Current Visit: Yes Status: Chronic Recommend change dressing today as patient having peeling of dressing at distal portion. Keep incision clean and dry. Do not allow dressing to get wet. If becomes 50% or greater saturated, change dressing. May remove dressing in 7 days. Continue with placement to ECF for antibiotic therapy via PICC line per infectious disease regimen. Patient to follow up with [facility] outpatient. Pain control per Hospitalist. Qualifiers: Encounter type: initial encounter Qualified Code(s): T81.4XXA - Infection following a procedure, initial encounter (2) Shoulder pain, right Current Visit: Yes Status: Chronic Qualifiers: Chronicity: chronic Qualified Code(s): M25.511 - Pain in right shoulder Subjective Principal diagnosis: right shoulder pain Interval history: Ms. Mcallister is a 32 year old female presented to the ED after fall. She signed out AMA of ECF appx 2 weeks ago and has not received any IV antibiotics since that time. She admits to right shoulder pain at this time. She had an infected right total shoulder replacement several weeks ago after being noncompliant with orthopedic follow up and presented to [facility] and was admitted and had surgery on 03/12/[address] Ragland: Right shoulder open irrigation and debridement, hardware removal, sinus tract excision, removal of total shoulder replacement. Patient was seen by infectious disease team for medication selection and recommended Vancomycin for 8 weeks via PICC line. Patient's leena that had been in place since 03/12 surgery were removed in ED on 04/06/17 by this provider. Patient resting comfortably in bed. She is alert and oriented. She is in simple blue sling. Inspection right shoulder reveals well healed incision honeycomb opsite intact. Patient elbow and wrist and hand on right side motion intact. Neurovascularly intact. Case discussed with Dr. Ragland. Recommend change dressing today as patient having peeling of dressing at distal portion. Keep incision clean and dry. Do not allow dressing to get wet. If becomes 50% or greater saturated, change dressing. May remove dressing in 7 days. Continue with placement to ECF for antibiotic therapy via PICC line per infectious disease regimen. Patient to follow up with [facility] outpatient. Pain control per Hospitalist. Objective Vital signs: Vital Signs Temp Pulse Resp BP Pulse Ox 04/09/17 17:37 98.1 F 72 16 123/72 100 04/09/17 15:47 98 F 83 16 126/64 100 04/09/17 11:38 98.2 F 78 16 123/57 100 04/09/17 06:38 98.3 F 74 16 134/76 99 04/09/17 00:24 98.0 F 77 18 135/81 98 04/08/17 20:14 98.8 F 72 18 133/64 99 Intake and Output 04/09/17 04/09/17 04/09/17 07:59 15:59 23:59 Intake Total 820 / 820 1520 / 1520 250 / 250 Output Total 400 / 400 Balance 820 / 820 1120 / 1120 250 / 250 Intake: IV Fluids 250 / 250 250 / 250 Vancocin 1,250 MG In Dextrose 5 250 / 250 250 / 250 % 250 ML @ 166.67 mls/hr IVPB Q12H [facility] Rx#:[id number] Oral 820 / 820 1270 / 1270 Output: Urine 400 / 400 Other: Meal Breakfast Percent of Meal Consumed 75% # Voids 2 10 - Labs CBC & BMP: 04/09/17 03:35 04/09/17 03:35 Labs: Abnormal lab results RBC 3.37 M/mcL (3.82-4.97) L 04/09/17 03:35 Hgb 9.8 g/dL (11.5-15.4) L D 04/09/17 03:35 Hct 30.3 % (35.3-44.9) L 04/09/17 03:35 RDW 17.2 % (11.5-14.5) H 04/09/17 03:35 Plt Count 408 K/mcL (140-400) H 04/09/17 03:35 MPV 8.7 fL (9.4-12.4) L 04/09/17 03:35 POC Glucose 91 (58-89) H 04/09/17 17:38 Urine Clarity Cloudy (Clear) A 04/06/17 23:40 Ur Leukocyte Esterase Moderate (Negative) H 04/06/17 23:40 Urine Microscopic RBC 3-5 per hpf (0-3) H 04/06/17 23:40 Urine Microscopic WBC 5-15 per hpf (0-3) H 04/06/17 23:40 Ur Squamous Epith Cells Many per lpf (None-Few) H 04/06/17 23:40 Vancomycin Trough 7.5 mcg/mL (10-20) L 04/08/17 03:12 U Benzodiazepines Scrn Positive ng/mL (Vkyxmw=806) H 04/06/17 13:00 U Marijuana (THC) Screen Positive ng/mL (Cutoff = 50) H 04/06/17 13:00 Consult Discharge Plan - Plan Additional Instructions: Follow up with [facility] Referrals: Tracy Osorio, COOKING CHEF [Advanced Practice Nurse] - 04/26/17 8:40 am NONE,PCP [Primary Care Provider] - Prescriptions: HYDROcodone/Acet 7.5/325 mg [[place] 7.5-325 mg] 1 tab PO Q6H PRN #30 tablet PRN Reason: Pain Naproxen [Naprosyn] 500 mg PO BIDWM 7 Days #14 tablet Nicotine Patch [Nicoderm] 21 mg TD DAILY #30 patch.td24 Pantoprazole Sodium [Protonix] 40 mg PO DAILY #14 tablet. Vancomycin HCl in Dextrose 5 % [Vancomycin-D5w 1.25 Gram/250Ml] 1.25 gm IV Q12H #[id number] mls
[2017-04-10] MEDS: *HR* Morphine 2 MG/ML SYRINGE IVP PRN ×5 (02:01→23:15)
[2017-04-10 04:10] LABS: Basophils # 0.1 K/mcL (0.0-0.2); Basophils % 0.8 %; Eosinophils # 0.6 K/mcL (0.0-0.6); Eosinophils % 7.8 %; Hemoglobin 9.1 g/dL (11.5-15.4); Immature Granulocytes % 0.1 % (0-4); Lymphocytes % 42.2 %; Mean Corpuscular HGB Conc 32.5 g/dL (31.6-35.5); Mean Corpuscular Hemoglobin 29.5 pg (28.0-33.3); Mean Corpuscular Volume 90.9 fL (83.0-100.0); Mean Platelet Volume 8.8 fL (9.4-12.4); Monocytes # 0.6 K/mcL (0.0-1.3); Monocytes % 8.2 %; Neutrophils # 2.9 K/mcL (1.6-8.9); Platelet Count 368 K/mcL (140-400); Red Blood Count 3.08 M/mcL (3.82-4.97); Red Cell Distribution Width 17.1 % (11.5-14.5); Segmented Neutrophils % 40.9 %
[2017-04-10 04:29] LABS: BUN/Creatinine Ratio 24 (6-26); Blood Urea Nitrogen 15 mg/dL (7-20); Calcium 8.3 mg/dL (8.6-10.8); Carbon Dioxide 25 mEq/L (19-29); Chloride 108 mEq/L (98-109); Glucose 86 mg/dL (70-99); Osmolality,Calculated 284 (280-300); Potassium 4.1 mEq/L (3.5-4.5); Sodium 137 mEq/L (136-145); eGFR For African Americans > 60 (> 60); eGFR For Non-African Americans > 60 (> 60)
[2017-04-10] MEDS: *HR* Enoxaparin 40 MG/0.4 ML SYRINGE SQ SCH (04:32)
[2017-04-10] MEDS: Vancomycin 1,250 MG in D5% in Water 250 ML IVPB SCH ×2 (04:32→13:57)
[2017-04-10] MEDS: *HR* HYDROcodone/Acet 7.5/325 mg TABLET PO PRN ×4 (04:32→21:19)
--- NOTE | 2017-04-10 07:32 | Orthopedics Progress Note ---
Date of Encounter: 04/10/17 Time of Encounter: 07:32 Subjective Principal diagnosis: right shoulder pain Interval history: Patient seen awaiting placement, IV antibiotics for 6 weeks dressing clean dry and intact Objective Vital signs: Vital Signs Temp Pulse Resp BP Pulse Ox 04/10/17 00:25 98.7 F 69 15 132/63 99 04/09/17 19:32 98.9 F 78 18 148/88 100 04/09/17 17:37 98.1 F 72 16 123/72 100 04/09/17 15:47 98 F 83 16 126/64 100 04/09/17 11:38 98.2 F 78 16 123/57 100 Intake and Output 04/09/17 04/09/17 04/10/17 15:59 23:59 07:59 Intake Total 1520 / 1520 450 / 450 240 / 240 Output Total 400 / 400 Balance 1120 / 1120 450 / 450 240 / 240 Intake: IV Fluids 250 / 250 250 / 250 Vancocin 1,250 MG In Dextrose 5 250 / 250 250 / 250 % 250 ML @ 166.67 mls/hr IVPB Q12H [facility] Rx#:[id number] Oral 1270 / 1270 200 / 200 240 / 240 Output: Urine 400 / 400 Other: Meal Breakfast Percent of Meal Consumed 75% # Voids 10 1 1 - Labs CBC & BMP: 04/10/17 02:44 04/10/17 02:44 Labs: Abnormal lab results RBC 3.08 M/mcL (3.82-4.97) L 04/10/17 02:44 Hgb 9.1 g/dL (11.5-15.4) L 04/10/17 02:44 Hct 28.0 % (35.3-44.9) L 04/10/17 02:44 RDW 17.1 % (11.5-14.5) H 04/10/17 02:44 MPV 8.8 fL (9.4-12.4) L 04/10/17 02:44 POC Glucose 91 (58-89) H 04/09/17 17:38 Calcium 8.3 mg/dL (8.6-10.8) L 04/10/17 02:44 Urine Clarity Cloudy (Clear) A 04/06/17 23:40 Ur Leukocyte Esterase Moderate (Negative) H 04/06/17 23:40 Urine Microscopic RBC 3-5 per hpf (0-3) H 04/06/17 23:40 Urine Microscopic WBC 5-15 per hpf (0-3) H 04/06/17 23:40 Ur Squamous Epith Cells Many per lpf (None-Few) H 04/06/17 23:40 U Benzodiazepines Scrn Positive ng/mL (Znksxl=151) H 04/06/17 13:00 U Marijuana (THC) Screen Positive ng/mL (Cutoff = 50) H 04/06/17 13:00 Consult Discharge Plan - Plan Additional Instructions: Follow up with [facility] Referrals: Tracy Osorio, IT INTEGRATION ARCHITECT [Advanced Practice Nurse] - 04/26/17 8:40 am NONE,PCP [Primary Care Provider] - Prescriptions: HYDROcodone/Acet 7.5/325 mg [[place] 7.5-325 mg] 1 tab PO Q6H PRN #30 tablet PRN Reason: Pain Naproxen [Naprosyn] 500 mg PO BIDWM 7 Days #14 tablet Nicotine Patch [Nicoderm] 21 mg TD DAILY #30 patch.td24 Pantoprazole Sodium [Protonix] 40 mg PO DAILY #14 tablet. Vancomycin HCl in Dextrose 5 % [Vancomycin-D5w 1.25 Gram/250Ml] 1.25 gm IV Q12H #[id number] mls
[2017-04-10] MEDS: 0.9 % Sodium Chloride 1,000 ML IVC SCH ×3 (08:54→23:20)
[2017-04-10] MEDS: Pantoprazole 40 MG VIAL IVP SCH (08:58)
[2017-04-10] MEDS: Nicotine 21 MG PATCH.TD24 TD SCH (08:58)
[2017-04-11 03:17] LABS: BUN/Creatinine Ratio 23 (6-26); Blood Urea Nitrogen 14 mg/dL (7-20); Calcium 8.7 mg/dL (8.6-10.8); Carbon Dioxide 25 mEq/L (19-29); Chloride 109 mEq/L (98-109); Glucose 90 mg/dL (70-99); Osmolality,Calculated 288 (280-300); Potassium 4.1 mEq/L (3.5-4.5); Sodium 139 mEq/L (136-145); eGFR For African Americans > 60 (> 60); eGFR For Non-African Americans > 60 (> 60)
[2017-04-11 03:26] LABS: Basophils % 0.4 %; Eosinophils # 0.5 K/mcL (0.0-0.6); Eosinophils % 7.4 %; Hematocrit 27.1 % (35.3-44.9); Hemoglobin 8.7 g/dL (11.5-15.4); Immature Granulocytes % 0.3 % (0-4); Lymphocytes # 2.5 K/mcL (0.6-4.6); Lymphocytes % 36.5 %; Mean Corpuscular HGB Conc 32.1 g/dL (31.6-35.5); Mean Corpuscular Hemoglobin 29.4 pg (28.0-33.3); Mean Corpuscular Volume 91.6 fL (83.0-100.0); Monocytes # 0.5 K/mcL (0.0-1.3); Monocytes % 7.5 %; Neutrophils # 3.2 K/mcL (1.6-8.9); Nucleated Red Blood Cells 0.3 /100 WBC (0); Platelet Count 344 K/mcL (140-400); Red Blood Count 2.96 M/mcL (3.82-4.97); Red Cell Distribution Width 17.1 % (11.5-14.5); Segmented Neutrophils % 47.9 %
[2017-04-11] MEDS: Vancomycin 1,250 MG in D5% in Water 250 ML IVPB SCH ×2 (05:11→15:58)
[2017-04-11] MEDS: *HR* Enoxaparin 40 MG/0.4 ML SYRINGE SQ SCH (05:11)
[2017-04-11] MEDS: *HR* Morphine 2 MG/ML SYRINGE IVP PRN ×5 (05:11→23:03)
[2017-04-11] MEDS: *HR* HYDROcodone/Acet 7.5/325 mg TABLET PO PRN ×4 (07:13→20:05)
[2017-04-11] MEDS: Nicotine 21 MG PATCH.TD24 TD SCH (09:32)
[2017-04-11] MEDS: Pantoprazole 40 MG VIAL IVP SCH (09:32)
[2017-04-11] MEDS: 0.9 % Sodium Chloride 1,000 ML IVC SCH (09:37)
[2017-04-12] MEDS: *HR* HYDROcodone/Acet 7.5/325 mg TABLET PO PRN ×4 (00:34→21:11)
[2017-04-12 00:42] LABS: Bacteria,Urine None Seen per hpf (None-Few); Clarity,Urine Clear (Clear); Hyaline Casts,Urine None Seen per lpf (None-Few); RBC,Urine 0-3 per hpf (0-3); Specific Gravity,Urine 1.014 (1.010-1.025); Squamous Epithelial Cell,Urine Moderate per lpf (None-Few); Urobilinogen,Urine Normal (Normal)
[2017-04-12 00:44] LABS: Bilirubin,Urine Negative (Negative); Color,Urine Yellow (Yellow); Glucose,Urine (UA) Normal (Normal)
[2017-04-12 00:45] LABS: Blood,Urine Negative (Negative); Ketones,Urine Negative (Negative); Leukocyte Esterase,Urine Trace (Negative); Nitrite,Urine Negative (Negative); Protein,Urine Negative (Neg-Trace)
[2017-04-12] MEDS ORDERED: ALPRAZolam 0.25 MG TABLET PO ONE (02:26)
[2017-04-12 02:57] LABS: Basophils % 0.6 %; Eosinophils # 0.6 K/mcL (0.0-0.6); Eosinophils % 7.7 %; Hematocrit 27.7 % (35.3-44.9); Hemoglobin 9.2 g/dL (11.5-15.4); Immature Granulocytes % 0.4 % (0-4); Immature Platelets 1.3 % (1.1-6.1); Lymphocytes # 2.8 K/mcL (0.6-4.6); Lymphocytes % 38.2 %; Mean Corpuscular HGB Conc 33.2 g/dL (31.6-35.5); Mean Corpuscular Hemoglobin 30.2 pg (28.0-33.3); Mean Corpuscular Volume 90.8 fL (83.0-100.0); Mean Platelet Volume 8.8 fL (9.4-12.4); Monocytes # 0.5 K/mcL (0.0-1.3); Monocytes % 7.4 %; Neutrophils # 3.3 K/mcL (1.6-8.9); Platelet Count 406 K/mcL (140-400); Red Blood Count 3.05 M/mcL (3.82-4.97); Red Cell Distribution Width 17.1 % (11.5-14.5); Segmented Neutrophils % 45.7 %
[2017-04-12 03:14] LABS: BUN/Creatinine Ratio 23 (6-26); Blood Urea Nitrogen 15 mg/dL (7-20); Calcium 9.1 mg/dL (8.6-10.8); Carbon Dioxide 25 mEq/L (19-29); Chloride 107 mEq/L (98-109); Glucose 83 mg/dL (70-99); Osmolality,Calculated 286 (280-300); Potassium 3.9 mEq/L (3.5-4.5); Sodium 138 mEq/L (136-145); eGFR For African Americans > 60 (> 60); eGFR For Non-African Americans > 60 (> 60)
[2017-04-12] MEDS: Vancomycin 1,250 MG in D5% in Water 250 ML IVPB SCH ×2 (04:08→15:34)
[2017-04-12] MEDS: *HR* Enoxaparin 40 MG/0.4 ML SYRINGE SQ SCH (05:48)
[2017-04-12] MEDS: *HR* Morphine 2 MG/ML SYRINGE IVP PRN ×4 (05:49→18:49)
[2017-04-12] MEDS: Nicotine 21 MG PATCH.TD24 TD SCH (08:55)
[2017-04-12] MEDS: Pantoprazole 40 MG VIAL IVP SCH (08:55)
--- NOTE | 2017-04-12 10:26 | Infectious Disease Progress No ---
Date of Encounter: 04/12/17 Time of Encounter: 10:24 - Assessment and Plan (1) Prosthetic joint infection Current Visit: No Status: Acute Location: Right shoulder. Causative organism MSSA. Secondary to right shoulder surgical wound infection. Ortho consulted and following. Status post right shoulder open I & D, hardware removal, sinus tract excision, and removal of total shoulder hardware 03/12/[address] Ragland. Intra-operative report reviewed. Sinus tract noted down to the hardware. Cement spacer placed. The patient's PCN allergy limits our potential antibiotic choices. Additionally , the patient had a possible reaction to the cefepime during her last hospitalization. Blood cultures drawn 04/06/17 x 2 sets are negative. ESR 22, CRP 1. Continue Vancomycin IV. Pharmacy to dose. Goal trough ~15. Duration of treatment depends on the clinical picture, but likely 6 weeks of IV antibiotics. The patient has a history of non-compliance in the past and recently signed out AMA from the ECF where she was receiving her IV antibiotics. I had a discussion with the patient regarding the importance of compliance with the treatment regimen, risks/benefits/alternatives of IV antibiotic therapy, and patient/provider expectations during her course of treatment. She verbalizes understanding and is in agreement to proceed with long -term IV antibiotic therapy. web services architect consulted and following to assist with discharge planning. Recommend the patient be placed at an ECF to ensure compliance with medication regimen and avoid concern for misuse of PICC line. Monitor renal function and for drug toxicity and dose-adjust antibiotics. PICC line placed 04/08/17. Will need weekly CBC, BUN/Cr, ESR, CRP, and Vanc trough every Wednesday for the duration of treatment. Weekly PICC care per protocol. Follow up with ID 04/26/17 at 0840. Qualifiers: Encounter type: initial encounter Qualified Code(s): T84.50XA - Infection and inflammatory reaction due to unspecified internal joint prosthesis, initial encounter (2) Anemia Current Visit: No Status: Acute Hgb stable. No acute bleeding. Continue to trend. Qualifiers: Anemia type: unspecified type Qualified Code(s): D64.9 - Anemia, unspecified (3) Hepatitis C Current Visit: No Status: Acute Refer to GI as an outpatient. Qualifiers: Viral hepatitis chronicity: chronic Hepatic coma status: without hepatic coma Qualified Code(s): B18.2 - Chronic viral hepatitis C (4) Polysubstance abuse Current Visit: Yes Status: Acute Patient reports last IVDU several weeks ago. HIV negative. Hepatitis C antibody positive. (5) Back pain Current Visit: Yes Status: Acute Etiology unclear. Urinalysis not impressive, but specimen was sent for culture and is pending. Pain management per the primary team. Qualifiers: Back pain location: low back pain Chronicity: acute Back pain laterality : bilateral Sciatica presence: without sciatica Qualified Code(s): M54.5 - Low back pain - Subjective Interval history: Patient seen and examined. Weekend notes reviewed. No acute events noted overnight. Patient reports pain is better today. Denies fevers, chills or rigors. Denies chest pain, shortness of breath, or cough. Denies nausea, vomiting, or abdominal pain. Denies urinary complaints. Denies oral thrush or skin lesions. Complains of bilateral low back pain that she relates to her kidneys. Denies dysuria, urinary frequency, or hematuria. Infect Dis PN-Objective Data - Labs CBC & Chem 7: 04/12/17 02:45 04/12/17 02:45 Labs: Laboratory Results - last 24 hr 04/11/17 04/12/17 04/12/17 23:20 02:45 02:45 WBC 7.3 RBC 3.05 L Hgb 9.2 L Hct 27.7 L MCV 90.8 MCH 30.2 MCHC 33.2 RDW 17.1 H Plt Count 406 H MPV 8.8 L Immature Gran % 0.4 Seg Neutrophils % 45.7 Lymphocytes % 38.2 Monocytes % 7.4 Eosinophils % 7.7 Basophils % 0.6 Neutrophils # 3.3 Lymphocytes # 2.8 Monocytes # 0.5 Eosinophils # 0.6 Basophils # 0.0 Immature Plt Fraction 1.3 Sodium 138 Potassium 3.9 Chloride 107 Carbon Dioxide 25 BUN 15 Creatinine 0.66 Est GFR ( Amer) > 60 Est GFR (Non-Af Amer) > 60 BUN/Creatinine Ratio 23 Glucose 83 Calculated Osmolality 286 Calcium 9.1 Urine Color Yellow Urine Clarity Clear Urine pH 7.0 Ur Specific [place] 1.014 Urine Protein Negative Urine Glucose (UA) Normal Urine Ketones Negative Urine Blood Negative Urine Nitrite Negative Urine Bilirubin Negative Urine Urobilinogen Normal Ur Leukocyte Esterase Trace H Urine Microscopic RBC 0-3 Ur Squamous Epith Cells Moderate H Urine Bacteria None Seen Hyaline Casts None Seen Ur Culture Indicated? YES A Cultures: Cultures 04/06/17 22:06 Blood Culture - Final Peripheral Venipuncture No growth. 04/06/17 22:05 Blood Culture - Final Peripheral Venipuncture No growth. 04/09/17 18:19 Blood Culture - Preliminary Peripheral Venipuncture No growth. 04/09/17 18:22 Blood Culture - Preliminary Peripheral Venipuncture No growth. Serology 04/11/17 04/06/17 Range/Units 23:20 23:40 Urine Color Yellow Yellow (Yellow) Urine Clarity Clear Cloudy A (Clear) Urine pH 7.0 7.0 (5.0-8.0) pH Units Ur Specific [place] 1.014 1.023 (1.010-1.025) Urine Protein Negative Negative (Neg-Trace) mg/dL Urine Glucose (UA) Normal Normal (Normal) mg/dL Urine Ketones Negative Negative (Negative) mg/dL Urine Blood Negative Negative (Negative) Urine Nitrite Negative Negative (Negative) Urine Bilirubin Negative Negative (Negative) Urine Urobilinogen Normal Normal (Normal) mg/dL Ur Leukocyte Esterase Trace H Moderate H (Negative) Urine Microscopic RBC 0-3 3-5 H (0-3) per hpf Urine Microscopic WBC 5-15 H (0-3) per hpf Ur Squamous Epith Cells Moderate H Many H (None-Few) per lpf Urine Bacteria None Seen None Seen (None-Few) per hpf Hyaline Casts None Seen None Seen (None-Few) per lpf Ur Culture Indicated? YES A (NO) Exam - Constitutional Vitals: Temp Pulse Resp BP Pulse Ox 97.9 F 74 16 123/68 96 04/12/17 06:30 04/12/17 06:30 04/12/17 06:30 04/12/17 06:30 04/12/17 06:30 General appearance: average body habitus, cooperative, no acute distress - Head Head exam: Present: atraumatic, normal inspection, normocephalic - Eye Eye exam: Present: EOMI, normal appearance, PERRL Pupils: Present: normal accommodation - ENT ENT exam: Present: mucous membranes moist - Neck Neck exam: Present: normal inspection - Respiratory Respiratory exam: Present: CTAB. Absent: rales, respiratory distress, rhonchi, wheezes - Cardiovascular Cardiovascular exam: Present: RRR, +S1, +S2 - GI/Abdominal GI/Abdominal exam: Present: normal bowel sounds, soft. Absent: distended, tenderness - Extremities Exam Extremities exam: Present: joint swelling (right shoulder), tenderness (right shoulder). Absent: pedal edema Additional comments: Surgical site to the right anterior shoulder with honeycomb dressing in place. + PMS to the distal extremity. - Back Exam Back exam: Present: CVA tenderness (L), CVA tenderness (R). Absent: paraspinal tenderness, vertebral tenderness - Neurological Exam Neurological exam: Present: alert, oriented X3, no focal deficits - Psychiatric Psychiatric exam: Present: normal affect, normal mood - Skin Skin exam: Present: dry, intact, normal color, warm Consult Discharge Plan - Plan Additional Instructions: Follow up with [facility] Referrals: Tracy Osorio, SOLAR BUSINESS DEVELOPER [Advanced Practice Nurse] - 04/26/17 8:40 am NONE,PCP [Primary Care Provider] - Prescriptions: HYDROcodone/Acet 7.5/325 mg [[place] 7.5-325 mg] 1 tab PO Q6H PRN #30 tablet PRN Reason: Pain Naproxen [Naprosyn] 500 mg PO BIDWM 7 Days #14 tablet Nicotine Patch [Nicoderm] 21 mg TD DAILY #30 patch.td24 Pantoprazole Sodium [Protonix] 40 mg PO DAILY #14 tablet. Vancomycin HCl in Dextrose 5 % [Vancomycin-D5w 1.25 Gram/250Ml] 1.25 gm IV Q12H #[id number] mls
[2017-04-12] MEDS ORDERED: hydrOXYzine pamoate 25 MG CAPSULE PO SCH (16:52)
--- NOTE | 2017-04-12 22:30 | Internal Med Progress Note ---
Date of Encounter: 04/10/17 Time of Encounter: 14:28 - Assessment and plan (1) Prosthetic joint infection Current Visit: No Status: Acute Assessment and plan: Of right shoulder s/p I&D, hardware removal, and sinus tract exicsion on . After procedure she was non-compliant to vancomycin treatment. Wound cultures grew MSSA at that time. She has penicillin allergy with possible allergy to cefepime as well. Lung cultures on 04/06 are no growth to date 2. Continue vancomycin, likely 6 weeks duration. Will need to complete therapy at [facility] to ensure compliance. Social service to assist with discharge planning. Qualifiers: Encounter type: initial encounter Qualified Code(s): T84.50XA - Infection and inflammatory reaction due to unspecified internal joint prosthesis, initial encounter (2) DVT prophylaxis Current Visit: No Status: Acute (3) Polysubstance abuse Current Visit: Yes Status: Acute (4) Anemia Current Visit: No Status: Acute Qualifiers: Anemia type: unspecified type Qualified Code(s): D64.9 - Anemia, unspecified (5) Hepatitis C Current Visit: No Status: Acute Qualifiers: Viral hepatitis chronicity: chronic Hepatic coma status: without hepatic coma Qualified Code(s): B18.2 - Chronic viral hepatitis C - Subjective Interval history: Denies fevers/chills, n/v, diaphoresis. Morphine and [place] dose had to the increased slightly due to breakthrough pain last night - Constitutional Vitals: Temp Pulse Resp BP Pulse Ox 98.4 F 78 16 130/81 98 04/12/17 19:17 04/12/17 19:17 04/12/17 19:17 04/12/17 19:17 04/12/17 19:17 General appearance: Present: A&O X 3, answers questions appropriately Exam: Gen: NAD CVS: RRR Lungs: CTAB Ext: r shoulder wrapped, clean dry Internal Medicine: Result - Labs CBC & Chem 7: 04/12/17 02:45 04/12/17 02:45 Labs: Short CBC 04/12/17 Range/Units 02:45 WBC 7.3 (4.3-11.1) K/mcL Hgb 9.2 L (11.5-15.4) g/dL Hct 27.7 L (35.3-44.9) % Plt Count 406 H (140-400) K/mcL Neutrophils # 3.3 (1.6-8.9) K/mcL BMP 04/12/17 02:45 Sodium 138 Potassium 3.9 Chloride 107 Carbon Dioxide 25 BUN 15 Creatinine 0.66 Glucose 83 Calcium 9.1 Urine 04/11/17 Range/Units 23:20 Urine Color Yellow (Yellow) Urine Clarity Clear (Clear) Urine pH 7.0 (5.0-8.0) pH Units Ur Specific [place] 1.014 (1.010-1.025) Urine Protein Negative (Neg-Trace) mg/dL Urine Glucose (UA) Normal (Normal) mg/dL Consult Discharge Plan - Plan Additional Instructions: Follow up with [facility] Referrals: Tracy Osorio, CAT SITTER [Advanced Practice Nurse] - 04/26/17 8:40 am NONE,PCP [Primary Care Provider] - Prescriptions: HYDROcodone/Acet 7.5/325 mg [[place] 7.5-325 mg] 1 tab PO Q6H PRN #30 tablet PRN Reason: Pain Naproxen [Naprosyn] 500 mg PO BIDWM 7 Days #14 tablet Nicotine Patch [Nicoderm] 21 mg TD DAILY #30 patch.td24 Pantoprazole Sodium [Protonix] 40 mg PO DAILY #14 tablet. Vancomycin HCl in Dextrose 5 % [Vancomycin-D5w 1.25 Gram/250Ml] 1.25 gm IV Q12H #[id number] mls
--- NOTE | 2017-04-12 22:32 | Internal Med Progress Note ---
Date of Encounter: 04/11/17 Time of Encounter: 10:32 - Assessment and plan (1) Prosthetic joint infection Current Visit: No Status: Acute Assessment and plan: Of right shoulder s/p I&D, hardware removal, and sinus tract exicsion on . After procedure she was non-compliant to vancomycin treatment. Wound cultures grew MSSA at that time. She has penicillin allergy with possible allergy to cefepime as well. Lung cultures on 04/06 are no growth to date 2. Continue vancomycin, likely 6 weeks duration. Will need to complete therapy at [facility] to ensure compliance. Social service to assist with discharge planning. Qualifiers: Encounter type: initial encounter Qualified Code(s): T84.50XA - Infection and inflammatory reaction due to unspecified internal joint prosthesis, initial encounter (2) DVT prophylaxis Current Visit: No Status: Acute (3) Polysubstance abuse Current Visit: Yes Status: Acute (4) Anemia Current Visit: No Status: Acute Qualifiers: Anemia type: unspecified type Qualified Code(s): D64.9 - Anemia, unspecified (5) Hepatitis C Current Visit: No Status: Acute Qualifiers: Viral hepatitis chronicity: chronic Hepatic coma status: without hepatic coma Qualified Code(s): B18.2 - Chronic viral hepatitis C - Subjective Interval history: Denies fevers/chills, n/v, diaphoresis. Morphine and [place] dose had to the increased slightly due to breakthrough pain last night - Constitutional Vitals: Temp Pulse Resp BP Pulse Ox 98.4 F 78 16 130/81 98 04/12/17 19:17 04/12/17 19:17 04/12/17 19:17 04/12/17 19:17 04/12/17 19:17 General appearance: Present: A&O X 3, answers questions appropriately Exam: Gen: NAD CVS: RRR Lungs: CTAB Ext: no edema, right shoulder incision region c/d/i Internal Medicine: Result - Labs CBC & Chem 7: 04/12/17 02:45 04/12/17 02:45 Labs: Short CBC 04/12/17 Range/Units 02:45 WBC 7.3 (4.3-11.1) K/mcL Hgb 9.2 L (11.5-15.4) g/dL Hct 27.7 L (35.3-44.9) % Plt Count 406 H (140-400) K/mcL Neutrophils # 3.3 (1.6-8.9) K/mcL BMP 04/12/17 02:45 Sodium 138 Potassium 3.9 Chloride 107 Carbon Dioxide 25 BUN 15 Creatinine 0.66 Glucose 83 Calcium 9.1 Urine 04/11/17 Range/Units 23:20 Urine Color Yellow (Yellow) Urine Clarity Clear (Clear) Urine pH 7.0 (5.0-8.0) pH Units Ur Specific [place] 1.014 (1.010-1.025) Urine Protein Negative (Neg-Trace) mg/dL Urine Glucose (UA) Normal (Normal) mg/dL Consult Discharge Plan - Plan Additional Instructions: Follow up with [facility] Referrals: Tracy Osorio, ARCHITECTURAL PRACTICE MANAGER [Advanced Practice Nurse] - 04/26/17 8:40 am NONE,PCP [Primary Care Provider] - Prescriptions: HYDROcodone/Acet 7.5/325 mg [[place] 7.5-325 mg] 1 tab PO Q6H PRN #30 tablet PRN Reason: Pain Naproxen [Naprosyn] 500 mg PO BIDWM 7 Days #14 tablet Nicotine Patch [Nicoderm] 21 mg TD DAILY #30 patch.td24 Pantoprazole Sodium [Protonix] 40 mg PO DAILY #14 tablet. Vancomycin HCl in Dextrose 5 % [Vancomycin-D5w 1.25 Gram/250Ml] 1.25 gm IV Q12H #[id number] mls
[2017-04-13] MEDS: *HR* Morphine 2 MG/ML SYRINGE IVP PRN ×4 (02:24→18:58)
[2017-04-13] MEDS: *HR* HYDROcodone/Acet 7.5/325 mg TABLET PO PRN ×3 (03:46→22:12)
[2017-04-13] MEDS: Vancomycin 1,250 MG in D5% in Water 250 ML IVPB SCH ×2 (03:46→15:53)
--- NOTE | 2017-04-13 05:29 | Internal Med Progress Note ---
Date of Encounter: 04/11/17 Time of Encounter: 10:35 - Assessment and plan (1) Prosthetic joint infection Current Visit: No Status: Acute Assessment and plan: Of right shoulder s/p I&D, hardware removal, and sinus tract exicsion on . After procedure she was non-compliant to vancomycin treatment. Wound cultures grew MSSA at that time. She has penicillin allergy with possible allergy to cefepime as well. Lung cultures on 04/06 are no growth to date 2. Continue vancomycin, likely 6 weeks duration. Will need to complete therapy at [facility] to ensure compliance. Social service to assist with discharge planning. Qualifiers: Encounter type: initial encounter Qualified Code(s): T84.50XA - Infection and inflammatory reaction due to unspecified internal joint prosthesis, initial encounter (2) DVT prophylaxis Current Visit: No Status: Acute (3) Polysubstance abuse Current Visit: Yes Status: Acute (4) Anemia Current Visit: No Status: Acute Qualifiers: Anemia type: unspecified type Qualified Code(s): D64.9 - Anemia, unspecified (5) Hepatitis C Current Visit: No Status: Acute Qualifiers: Viral hepatitis chronicity: chronic Hepatic coma status: without hepatic coma Qualified Code(s): B18.2 - Chronic viral hepatitis C - Subjective Interval history: Denies fevers/chills, n/v, diaphoresis. Patient states she has anxiety and requests Xanax. - Constitutional Vitals: Temp Pulse Resp BP Pulse Ox 98.6 F 76 14 97/55 98 04/13/17 04:19 04/13/17 04:19 04/13/17 04:19 04/13/17 04:19 04/13/17 04:19 Exam: - General General appearance: alert, in no apparent distress al inspection, full ROM, trachea midline - Cardiovascular Cardiovascular exam: Present: regular rate, normal rhythm, normal heart sounds - Abdominal Exam Abdominal exam: Present: soft, Non-Tender. Absent: tenderness, distention, guarding, rebound, rigidity - Expanded Upper Extremity Exam Shoulder exam: Present: other (Incisions are clean and dry) - Expanded Lower Extremity Exam Neurovascular/Tendon exam: Absent: motor deficit, sensory deficit, tendon deficit Gait: observed and normal - Psychiatric Psychiatric exam: Present: normal affect, normal mood - Skin Skin exam: Present: warm, dry, intact, normal color Internal Medicine: Result - Labs CBC & Chem 7: 04/12/17 02:45 04/12/17 02:45 Consult Discharge Plan - Plan Additional Instructions: Follow up with [facility] Referrals: Tracy Osorio CNP [Advanced Practice Nurse] - 04/26/17 8:40 am NONE,PCP [Primary Care Provider] - Prescriptions: HYDROcodone/Acet 7.5/325 mg [[place] 7.5-325 mg] 1 tab PO Q6H PRN #30 tablet PRN Reason: Pain Naproxen [Naprosyn] 500 mg PO BIDWM 7 Days #14 tablet Nicotine Patch [Nicoderm] 21 mg TD DAILY #30 patch.td24 Pantoprazole Sodium [Protonix] 40 mg PO DAILY #14 tablet. Vancomycin HCl in Dextrose 5 % [Vancomycin-D5w 1.25 Gram/250Ml] 1.25 gm IV Q12H #[id number] mls
[2017-04-13 05:48] LABS: Basophils % 0.6 %; Eosinophils # 0.5 K/mcL (0.0-0.6); Eosinophils % 7.9 %; Immature Granulocytes % 0.1 % (0-4); Lymphocytes # 2.3 K/mcL (0.6-4.6); Lymphocytes % 34.5 %; Mean Corpuscular HGB Conc 32.1 g/dL (31.6-35.5); Mean Corpuscular Hemoglobin 29.3 pg (28.0-33.3); Mean Corpuscular Volume 91.2 fL (83.0-100.0); Mean Platelet Volume 9.3 fL (9.4-12.4); Monocytes # 0.6 K/mcL (0.0-1.3); Monocytes % 9.4 %; Neutrophils # 3.2 K/mcL (1.6-8.9); Platelet Count 346 K/mcL (140-400); Red Blood Count 3.07 M/mcL (3.82-4.97); Red Cell Distribution Width 17.2 % (11.5-14.5); Segmented Neutrophils % 47.5 %
[2017-04-13 06:00] LABS: BUN/Creatinine Ratio 25 (6-26); Blood Urea Nitrogen 16 mg/dL (7-20); Calcium 8.8 mg/dL (8.6-10.8); Carbon Dioxide 24 mEq/L (19-29); Chloride 107 mEq/L (98-109); Glucose 98 mg/dL (70-99); Osmolality,Calculated 289 (280-300); Potassium 3.7 mEq/L (3.5-4.5); Sodium 139 mEq/L (136-145); eGFR For African Americans > 60 (> 60); eGFR For Non-African Americans > 60 (> 60)
[2017-04-13] MEDS: *HR* Enoxaparin 40 MG/0.4 ML SYRINGE SQ SCH (06:02)
[2017-04-13] MEDS: Nicotine 21 MG PATCH.TD24 TD SCH (08:37)
[2017-04-13] MEDS: Pantoprazole 40 MG VIAL IVP SCH (08:38)
--- NOTE | 2017-04-13 14:13 | Infectious Disease Progress No ---
Date of Encounter: 04/13/17 Time of Encounter: 14:11 - Assessment and Plan (1) Prosthetic joint infection Current Visit: No Status: Acute Location: Right shoulder. Causative organism MSSA. Secondary to right shoulder surgical wound infection. Ortho consulted and following. Status post right shoulder open I & D, hardware removal, sinus tract excision, and removal of total shoulder hardware 03/12/[address] Ragland. Intra-operative report reviewed. Sinus tract noted down to the hardware. Cement spacer placed. The patient's PCN allergy limits our potential antibiotic choices. Additionally , the patient had a possible reaction to the cefepime during her last hospitalization. Blood cultures drawn 04/06/17 x 2 sets are negative. ESR 22, CRP 1. Continue Vancomycin IV. Pharmacy to dose. Goal trough ~15. Duration of treatment depends on the clinical picture, but likely 6 weeks of IV antibiotics. The patient has a history of non-compliance in the past and recently signed out AMA from the ECF where she was receiving her IV antibiotics. I had a discussion with the patient regarding the importance of compliance with the treatment regimen, risks/benefits/alternatives of IV antibiotic therapy, and patient/provider expectations during her course of treatment. She verbalizes understanding and is in agreement to proceed with long -term IV antibiotic therapy. tax services intern consulted and following to assist with discharge planning. Recommend the patient be placed at an ECF to ensure compliance with medication regimen and avoid concern for misuse of PICC line. Monitor renal function and for drug toxicity and dose-adjust antibiotics. PICC line placed 04/08/17. Will need weekly CBC, BUN/Cr, ESR, CRP, and Vanc trough every Wednesday for the duration of treatment. Weekly PICC care per protocol. Follow up with ID 04/26/17 at 0840. Qualifiers: Encounter type: initial encounter Qualified Code(s): T84.50XA - Infection and inflammatory reaction due to unspecified internal joint prosthesis, initial encounter (2) Anemia Current Visit: No Status: Acute Hgb stable. No acute bleeding. Continue to trend. Qualifiers: Anemia type: unspecified type Qualified Code(s): D64.9 - Anemia, unspecified (3) Hepatitis C Current Visit: No Status: Acute Refer to GI as an outpatient. Qualifiers: Viral hepatitis chronicity: chronic Hepatic coma status: without hepatic coma Qualified Code(s): B18.2 - Chronic viral hepatitis C (4) Polysubstance abuse Current Visit: Yes Status: Acute Patient reports last IVDU several weeks ago. HIV negative. Hepatitis C antibody positive. (5) Back pain Current Visit: Yes Status: Acute Etiology unclear. Improved. Urine culture negative. Pain management per the primary team. Qualifiers: Back pain location: low back pain Chronicity: acute Back pain laterality : bilateral Sciatica presence: without sciatica Qualified Code(s): M54.5 - Low back pain - Subjective Interval history: Patient seen and examined. No acute events noted overnight. Patient reports pain is better today, but reports warmth to the underside of her right upper arm. Denies fevers, chills or rigors. Denies chest pain, shortness of breath, or cough. Denies nausea, vomiting, or abdominal pain. Denies urinary complaints. Denies oral thrush or skin lesions. States back pain is better. Denies dysuria, urinary frequency, or hematuria. Infect Dis PN-Objective Data - Labs CBC & Chem 7: 04/13/17 04:15 04/13/17 04:15 Labs: Laboratory Results - last 24 hr 04/13/17 04/13/17 04:15 04:15 WBC 6.7 RBC 3.07 L Hgb 9.0 L Hct 28.0 L MCV 91.2 MCH 29.3 MCHC 32.1 RDW 17.2 H Plt Count 346 MPV 9.3 L Immature Gran % 0.1 Seg Neutrophils % 47.5 Lymphocytes % 34.5 Monocytes % 9.4 Eosinophils % 7.9 Basophils % 0.6 Neutrophils # 3.2 Lymphocytes # 2.3 Monocytes # 0.6 Eosinophils # 0.5 Basophils # 0.0 Sodium 139 Potassium 3.7 Chloride 107 Carbon Dioxide 24 BUN 16 Creatinine 0.65 Est GFR ( Amer) > 60 Est GFR (Non-Af Amer) > 60 BUN/Creatinine Ratio 25 Glucose 98 Calculated Osmolality 289 Calcium 8.8 Cultures: Cultures 04/11/17 23:20 Urine Culture - Final Urine,Clean Catch No growth. 04/06/17 22:06 Blood Culture - Final Peripheral Venipuncture No growth. 04/06/17 22:05 Blood Culture - Final Peripheral Venipuncture No growth. 04/09/17 18:19 Blood Culture - Preliminary Peripheral Venipuncture No growth. 04/09/17 18:22 Blood Culture - Preliminary Peripheral Venipuncture No growth. Serology 04/11/17 04/06/17 Range/Units 23:20 23:40 Urine Color Yellow Yellow (Yellow) Urine Clarity Clear Cloudy A (Clear) Urine pH 7.0 7.0 (5.0-8.0) pH Units Ur Specific [place] 1.014 1.023 (1.010-1.025) Urine Protein Negative Negative (Neg-Trace) mg/dL Urine Glucose (UA) Normal Normal (Normal) mg/dL Urine Ketones Negative Negative (Negative) mg/dL Urine Blood Negative Negative (Negative) Urine Nitrite Negative Negative (Negative) Urine Bilirubin Negative Negative (Negative) Urine Urobilinogen Normal Normal (Normal) mg/dL Ur Leukocyte Esterase Trace H Moderate H (Negative) Urine Microscopic RBC 0-3 3-5 H (0-3) per hpf Urine Microscopic WBC 5-15 H (0-3) per hpf Ur Squamous Epith Cells Moderate H Many H (None-Few) per lpf Urine Bacteria None Seen None Seen (None-Few) per hpf Hyaline Casts None Seen None Seen (None-Few) per lpf Ur Culture Indicated? YES A (NO) Exam - Constitutional Vitals: Temp Pulse Resp BP Pulse Ox 98.7 F 77 14 124/75 100 04/13/17 11:54 04/13/17 11:54 04/13/17 11:54 04/13/17 11:54 04/13/17 11:54 General appearance: average body habitus, cooperative, no acute distress - Head Head exam: Present: atraumatic, normal inspection, normocephalic - Eye Eye exam: Present: EOMI, normal appearance, PERRL Pupils: Present: normal accommodation - ENT ENT exam: Present: mucous membranes moist - Neck Neck exam: Present: normal inspection - Respiratory Respiratory exam: Present: CTAB. Absent: rales, respiratory distress, rhonchi, wheezes - Cardiovascular Cardiovascular exam: Present: RRR, +S1, +S2 - GI/Abdominal GI/Abdominal exam: Present: normal bowel sounds, soft. Absent: distended, tenderness - Extremities Exam Extremities exam: Present: joint swelling (right shoulder), tenderness (right shoulder/upper arm). Absent: pedal edema Additional comments: Right anterior shoulder incision with honeycomb dressing intact. No erythema or drainage noted. - Neurological Exam Neurological exam: Present: alert, oriented X3, no focal deficits - Psychiatric Psychiatric exam: Present: normal affect, normal mood - Skin Skin exam: Present: dry, intact, normal color, warm Consult Discharge Plan - Plan Additional Instructions: Follow up with [facility] Referrals: Tracy Osorio, OWNER/PHOTOGRAPHER [Advanced Practice Nurse] - 04/26/17 8:40 am NONE,PCP [Primary Care Provider] - Prescriptions: HYDROcodone/Acet 7.5/325 mg [[place] 7.5-325 mg] 1 tab PO Q6H PRN #30 tablet PRN Reason: Pain Naproxen [Naprosyn] 500 mg PO BIDWM 7 Days #14 tablet Nicotine Patch [Nicoderm] 21 mg TD DAILY #30 patch.td24 Pantoprazole Sodium [Protonix] 40 mg PO DAILY #14 tablet. Vancomycin HCl in Dextrose 5 % [Vancomycin-D5w 1.25 Gram/250Ml] 1.25 gm IV Q12H #[id number] mls
--- NOTE | 2017-04-13 15:00 | Orthopedics Progress Note ---
Date of Encounter: 04/13/17 Time of Encounter: 14:59 - Assessment and Plan (1) Septic joint Current Visit: Yes Status: Acute Status post Right Shoulder Removal of hardware, placement of cement spacer. 03/12 Keep incision clean and dry. Do not allow dressing to get wet. If becomes 50% or greater saturated, change dressing. May remove dressing in 7 days. Continue with placement to ECF for antibiotic therapy via PICC line per infectious disease regimen. Patient to follow up with [facility] outpatient. Pain control per Hospitalist Qualifiers: Septic arthritis location: shoulder Septic arthritis organism: staphylococcal Laterality: right Qualified Code(s): M00.011 - Staphylococcal arthritis, right shoulder (2) Polysubstance abuse Current Visit: Yes Status: Acute (3) COPD (chronic obstructive pulmonary disease) Current Visit: No Status: Acute Qualifiers: COPD type: unspecified COPD Qualified Code(s): J44.9 - Chronic obstructive pulmonary disease, unspecified (4) Hepatitis C Current Visit: No Status: Acute Qualifiers: Viral hepatitis chronicity: chronic Hepatic coma status: without hepatic coma Qualified Code(s): B18.2 - Chronic viral hepatitis C Subjective Principal diagnosis: right shoulder pain Interval history: Hospital Day #7 Ms. Mcallister is a 32 year old female presented to the ED after fall. She signed out AMA of ECF appx 2 weeks ago and has not received any IV antibiotics since that time. She admits to right shoulder pain at this time. She had an infected right total shoulder replacement several weeks ago after being noncompliant with orthopedic follow up and presented to [facility] and was admitted and had surgery on 03/12/[address] Ragland: Right shoulder open irrigation and debridement, hardware removal, sinus tract excision, removal of total shoulder replacement. Patient was seen by infectious disease team for medication selection and recommended Vancomycin for 8 weeks via PICC line. Patient's leena that had been in place since 03/12 surgery were removed in ED on 04/06/17 by this provider. 04/08/17 - Patient resting comfortably in bed. She is alert and oriented. She is in simple blue sling. Inspection right shoulder reveals well healed incision honeycomb opsite intact Case discussed with Dr. Ragland. 04/13/17 - Patient A&O x 3, pain controlled; in simple sling. Incision healed, will remove and replace honeycomb dressing. Keep incision clean and dry. Do not allow dressing to get wet. If becomes 50% or greater saturated, change dressing. May remove dressing in 7 days. Continue with placement to ECF for antibiotic therapy via PICC line per infectious disease regimen. Patient to follow up with [facility] outpatient. Pain control per Hospitalist. Objective Vital signs: Vital Signs Temp Pulse Resp BP Pulse Ox 04/13/17 11:54 98.7 F 77 14 124/75 100 04/13/17 08:05 128/71 04/13/17 07:18 98.7 F 70 14 82/44 97 04/13/17 04:19 98.6 F 76 14 97/55 98 04/13/17 00:16 98.5 F 70 14 100/56 98 04/12/17 19:17 98.4 F 78 16 130/81 98 04/12/17 16:12 98.4 F 86 18 111/65 99 Intake and Output 04/12/17 04/13/17 04/13/17 23:59 07:59 15:59 Intake Total 430 / 430 250 / 250 940 / 940 Output Total 500 / 500 600 / 600 600 / 600 Balance -70 / -70 -350 / -350 340 / 340 Intake: IV Fluids 250 / 250 250 / 250 Vancocin 1,250 MG In Dextrose 5 250 / 250 250 / 250 % 250 ML @ 166.67 mls/hr IVPB Q12H [facility] Rx#:[id number] Oral 180 / 180 940 / 940 Output: Urine 500 / 500 600 / 600 600 / 600 Other: Meal Lunch Percent of Meal Consumed 100% Weight 58.3 kg Patient Weight 04/13/17 23:59 Weight 58.3 kg Incision: clean and dry - Labs CBC & BMP: 04/13/17 04:15 04/13/17 04:15 Labs: Abnormal lab results RBC 3.07 M/mcL (3.82-4.97) L 04/13/17 04:15 Hgb 9.0 g/dL (11.5-15.4) L 04/13/17 04:15 Hct 28.0 % (35.3-44.9) L 04/13/17 04:15 RDW 17.2 % (11.5-14.5) H 04/13/17 04:15 MPV 9.3 fL (9.4-12.4) L 04/13/17 04:15 Nucleated RBCs/100 WBC 0.3 /100 WBC (0) H 04/11/17 02:20 POC Glucose 91 (58-89) H 04/09/17 17:38 Ur Leukocyte Esterase Trace (Negative) H 04/11/17 23:20 Urine Microscopic WBC 5-15 per hpf (0-3) H 04/06/17 23:40 Ur Squamous Epith Cells Moderate per lpf (None-Few) H 04/11/17 23:20 Ur Culture Indicated? YES (NO) A 04/11/17 23:20 U Benzodiazepines Scrn Positive ng/mL (Dqjwoi=042) H 04/06/17 13:00 U Marijuana (THC) Screen Positive ng/mL (Cutoff = 50) H 04/06/17 13:00 Consult Discharge Plan - Plan Additional Instructions: Follow up with [facility] Referrals: Tracy Osorio, ACTUARIAL SCIENCE PROFESSOR [Advanced Practice Nurse] - 04/26/17 8:40 am NONE,PCP [Primary Care Provider] - Prescriptions: HYDROcodone/Acet 7.5/325 mg [[place] 7.5-325 mg] 1 tab PO Q6H PRN #30 tablet PRN Reason: Pain Naproxen [Naprosyn] 500 mg PO BIDWM 7 Days #14 tablet Nicotine Patch [Nicoderm] 21 mg TD DAILY #30 patch.td24 Pantoprazole Sodium [Protonix] 40 mg PO DAILY #14 tablet. Vancomycin HCl in Dextrose 5 % [Vancomycin-D5w 1.25 Gram/250Ml] 1.25 gm IV Q12H #[id number] mls
[2017-04-13] MEDS ORDERED: hydrOXYzine pamoate 25 MG CAPSULE PO ONE (16:10)
--- NOTE | 2017-04-13 17:49 | Internal Med Progress Note ---
Date of Encounter: 04/13/17 Time of Encounter: 10:40 - Assessment and plan (1) Prosthetic joint infection Current Visit: No Status: Acute Assessment and plan: Right shoulder - s/p I&D, hardware removal, and sinus tract exicsion on 03/12/17 After procedure she was non-compliant to vancomycin treatment Wound cultures - MSSA at that time, She has penicillin allergy with possible allergy to Cefepime as well Blood cultures - no growth to date 2 Continue Vancomycin, likely 6 weeks duration ID following - recommendations reviewed, appreciate input Anticipate discharge ECF soon, Social service to assist with discharge planning Qualifiers: Encounter type: initial encounter Qualified Code(s): T84.50XA - Infection and inflammatory reaction due to unspecified internal joint prosthesis, initial encounter (2) Polysubstance abuse Current Visit: Yes Status: Acute Assessment and plan: Patient admits to IV drug use - several weeks ago Counseled about cessation (3) Tobacco abuse Current Visit: Yes Status: Chronic Assessment and plan: Counseled about cessation, nicotine patch (4) Hepatitis C Current Visit: No Status: Chronic Assessment and plan: History of hepatitis C probably due to IV drug use Follow-up with GI as outpatient Qualifiers: Viral hepatitis chronicity: chronic Hepatic coma status: without hepatic coma Qualified Code(s): B18.2 - Chronic viral hepatitis C (5) DVT prophylaxis Current Visit: Yes Status: Acute Assessment and plan: Patient is ambulating well - Time Spent With Patient 25 - 35 minutes - Subjective Interval history: Examined this morning. Patient is awake and alert. Not in any distress. Tolerating oral diet well. Hemodynamically stable. No fever. Ambulating well. Denies chest pain or shortness of breath. Complains of mild pain in right shoulder. Improves with pain medication. Rates it 5 out of 10. Anticipate discharge to ECF soon. She will need long-term IV antibiotics via PICC line. - Constitutional Vitals: Temp Pulse Resp BP Pulse Ox 98.1 F 81 14 120/64 95 04/13/17 15:24 04/13/17 15:24 04/13/17 15:24 04/13/17 15:24 04/13/17 15:24 General appearance: Present: cooperative, A&O X 3, pleasant, no acute distress, answers questions appropriately - Head Head exam: Present: atraumatic - Eye Eye exam: Present: EOMI - ENT ENT exam: Present: mucous membranes moist - Respiratory Respiratory exam: Present: CTAB. Absent: rales, rhonchi, wheezes, tachypnea - Cardiovascular Cardiovascular exam: Present: RRR, +S1, +S2 - GI/Abdominal GI/Abdominal exam: Present: soft. Absent: distended, firm, guarding, tenderness - Extremities Exam Extremities exam: Present: radial pulses palpable and symmetrical. Absent: calf tenderness, cyanotic, pedal edema Additional comments: Tenderness over the right shoulder and right upper arm. Incision site looks okay with no drainage. - Neurological Exam Neurological exam: Present: alert, oriented X3, no focal deficits. Absent: facial droop, speech deficit Internal Medicine: Result - Labs CBC & Chem 7: 04/13/17 04:15 04/13/17 04:15 Labs: Short CBC 04/13/17 Range/Units 04:15 WBC 6.7 (4.3-11.1) K/mcL Hgb 9.0 L (11.5-15.4) g/dL Hct 28.0 L (35.3-44.9) % Plt Count 346 (140-400) K/mcL Neutrophils # 3.2 (1.6-8.9) K/mcL BMP 04/13/17 04:15 Sodium 139 Potassium 3.7 Chloride 107 Carbon Dioxide 24 BUN 16 Creatinine 0.65 Glucose 98 Calcium 8.8 Consult Discharge Plan - Plan Additional Instructions: Follow up with [facility] Referrals: Tracy Osorio, INCLUSION TEACHER [Advanced Practice Nurse] - 04/26/17 8:40 am NONE,PCP [Primary Care Provider] - Prescriptions: HYDROcodone/Acet 7.5/325 mg [[place] 7.5-325 mg] 1 tab PO Q6H PRN #30 tablet PRN Reason: Pain Naproxen [Naprosyn] 500 mg PO BIDWM 7 Days #14 tablet Nicotine Patch [Nicoderm] 21 mg TD DAILY #30 patch.td24 Pantoprazole Sodium [Protonix] 40 mg PO DAILY #14 tablet.dr [place] HCl in Dextrose 5 % [Vancomycin-D5w 1.25 Gram/250Ml] 1.25 gm IV Q12H #[id number] mls
[2017-04-14 04:39] LABS: Basophils % 0.6 %; Eosinophils # 0.5 K/mcL (0.0-0.6); Eosinophils % 6.7 %; Hemoglobin 9.3 g/dL (11.5-15.4); Immature Granulocytes % 0.3 % (0-4); Lymphocytes # 2.3 K/mcL (0.6-4.6); Lymphocytes % 33.2 %; Mean Corpuscular HGB Conc 32.1 g/dL (31.6-35.5); Mean Corpuscular Hemoglobin 28.9 pg (28.0-33.3); Mean Corpuscular Volume 90.1 fL (83.0-100.0); Mean Platelet Volume 8.9 fL (9.4-12.4); Monocytes # 0.7 K/mcL (0.0-1.3); Monocytes % 10.2 %; Neutrophils # 3.5 K/mcL (1.6-8.9); Platelet Count 331 K/mcL (140-400); Red Blood Count 3.22 M/mcL (3.82-4.97); Red Cell Distribution Width 17.1 % (11.5-14.5)
[2017-04-14] MEDS: *HR* Enoxaparin 40 MG/0.4 ML SYRINGE SQ SCH (04:59)
[2017-04-14] MEDS: Vancomycin 1,250 MG in D5% in Water 250 ML IVPB SCH ×2 (04:59→15:59)
[2017-04-14] MEDS: *HR* HYDROcodone/Acet 7.5/325 mg TABLET PO PRN ×4 (04:59→20:37)
[2017-04-14 05:00] LABS: BUN/Creatinine Ratio 27 (6-26); Blood Urea Nitrogen 18 mg/dL (7-20); Calcium 8.8 mg/dL (8.6-10.8); Carbon Dioxide 25 mEq/L (19-29); Chloride 107 mEq/L (98-109); Glucose 88 mg/dL (70-99); Osmolality,Calculated 289 (280-300); Potassium 4.1 mEq/L (3.5-4.5); Sodium 139 mEq/L (136-145); eGFR For African Americans > 60 (> 60); eGFR For Non-African Americans > 60 (> 60)
[2017-04-14] MEDS: *HR* Morphine 2 MG/ML SYRINGE IVP PRN ×3 (06:44→18:41)
[2017-04-14] MEDS: Pantoprazole 40 MG VIAL IVP SCH (09:12)
[2017-04-14] MEDS: Nicotine 21 MG PATCH.TD24 TD SCH (09:12)
--- NOTE | 2017-04-14 17:44 | Internal Med Progress Note ---
Date of Encounter: 04/14/17 Time of Encounter: 18:00 - Assessment and plan (1) Asthma Current Visit: No Status: Chronic Assessment and plan: Currently stable Qualifiers: Asthma severity: unspecified severity Asthma complication type: uncomplicated Qualified Code(s): J45.909 - Unspecified asthma, uncomplicated (2) Tobacco abuse Current Visit: Yes Status: Chronic (3) Prosthetic joint infection Current Visit: No Status: Acute Assessment and plan: Continue current antibiotic discussed with patient and discussed also with critical access hospital. Awaiting longterm to help for monitoring IV antibiotic and rehabilitation. Patient is currently stable for discharge to [facility] Qualifiers: Encounter type: initial encounter Qualified Code(s): T84.50XA - Infection and inflammatory reaction due to unspecified internal joint prosthesis, initial encounter (4) Vitamin B12 deficiency (dietary) anemia Current Visit: Yes Status: Acute Assessment and plan: add vitamin b12 - Subjective Interval history: Patient denies any fever or chills denies any nausea vomiting. Patient denies any change in her bowel movement. - Constitutional Vitals: Temp Pulse Resp BP Pulse Ox 98.3 F 79 16 134/56 99 04/14/17 14:58 04/14/17 14:58 04/14/17 14:58 04/14/17 14:58 04/14/17 14:58 General appearance: Present: cooperative, A&O X 3, pleasant, no acute distress, answers questions appropriately - Head Head exam: Present: atraumatic, normocephalic - Neck Neck exam general surgery: Present: supple, trachea midline. Absent: lymphadenopathy - Respiratory Respiratory exam: Present: CTAB. Absent: accessory muscle use, rales, rhonchi, wheezes - Cardiovascular Cardiovascular exam: Present: RRR, +S1, +S2. Absent: diastolic murmur, gallop, rubs, systolic murmur - Extremities Exam Extremities exam: Present: warm. Absent: calf tenderness, cyanotic, pedal edema - Neurological Exam Neurological exam: Present: CN II-XII intact, oriented X3, no focal deficits. Absent: pronater drift, facial droop, speech deficit Internal Medicine: Result - Labs CBC & Chem 7: 04/14/17 04:05 04/14/17 04:05 Labs: Short CBC 04/14/17 Range/Units 04:05 WBC 7.1 (4.3-11.1) K/mcL Hgb 9.3 L (11.5-15.4) g/dL Hct 29.0 L (35.3-44.9) % Plt Count 331 (140-400) K/mcL Neutrophils # 3.5 (1.6-8.9) K/mcL BMP 04/14/17 04:05 Sodium 139 Potassium 4.1 Chloride 107 Carbon Dioxide 25 BUN 18 Creatinine 0.67 Glucose 88 Calcium 8.8 Consult Discharge Plan - Plan Additional Instructions: Follow up with [facility] Referrals: Tracy Osorio, BUTCHER HELPER [Advanced Practice Nurse] - 04/26/17 8:40 am NONE,PCP [Primary Care Provider] - Prescriptions: HYDROcodone/Acet 7.5/325 mg [[place] 7.5-325 mg] 1 tab PO Q6H PRN #30 tablet PRN Reason: Pain Naproxen [Naprosyn] 500 mg PO BIDWM 7 Days #14 tablet Nicotine Patch [Nicoderm] 21 mg TD DAILY #30 patch.td24 Pantoprazole Sodium [Protonix] 40 mg PO DAILY #14 tablet. Vancomycin HCl in Dextrose 5 % [Vancomycin-D5w 1.25 Gram/250Ml] 1.25 gm IV Q12H #[id number] mls
[2017-04-14] MEDS: Cyanocobalamin (B-12) 1,000 MCG TABLET PO SCH (18:41)
[2017-04-15] MEDS: *HR* Morphine 2 MG/ML SYRINGE IVP PRN ×2 (00:20→07:59)
[2017-04-15] MEDS: Vancomycin 1,250 MG in D5% in Water 250 ML IVPB SCH (04:13)
[2017-04-15 04:46] LABS: Basophils # 0.1 K/mcL (0.0-0.2); Basophils % 0.7 %; Eosinophils # 0.6 K/mcL (0.0-0.6); Eosinophils % 8.5 %; Hematocrit 30.1 % (35.3-44.9); Hemoglobin 9.9 g/dL (11.5-15.4); Immature Granulocytes % 0.1 % (0-4); Lymphocytes # 2.7 K/mcL (0.6-4.6); Lymphocytes % 38.8 %; Mean Corpuscular HGB Conc 32.9 g/dL (31.6-35.5); Mean Corpuscular Hemoglobin 29.4 pg (28.0-33.3); Mean Corpuscular Volume 89.3 fL (83.0-100.0); Monocytes # 0.6 K/mcL (0.0-1.3); Monocytes % 9.1 %; Platelet Count 377 K/mcL (140-400); Red Blood Count 3.37 M/mcL (3.82-4.97); Red Cell Distribution Width 17.1 % (11.5-14.5); Segmented Neutrophils % 42.8 %
[2017-04-15 04:54] LABS: BUN/Creatinine Ratio 26 (6-26); Blood Urea Nitrogen 18 mg/dL (7-20); Calcium 9.3 mg/dL (8.6-10.8); Carbon Dioxide 25 mEq/L (19-29); Chloride 106 mEq/L (98-109); Glucose 91 mg/dL (70-99); Osmolality,Calculated 289 (280-300); Potassium 3.9 mEq/L (3.5-4.5); Sodium 139 mEq/L (136-145); eGFR For African Americans > 60 (> 60); eGFR For Non-African Americans > 60 (> 60)
[2017-04-15] MEDS: *HR* Enoxaparin 40 MG/0.4 ML SYRINGE SQ SCH (05:51)
[2017-04-15] MEDS: *HR* HYDROcodone/Acet 7.5/325 mg TABLET PO PRN ×2 (05:54→12:02)
[2017-04-15] MEDS: Nicotine 21 MG PATCH.TD24 TD SCH (07:59)
[2017-04-15] MEDS: Cyanocobalamin (B-12) 1,000 MCG TABLET PO SCH (08:00)
[2017-04-15 10:29] VITALS: BP 136/67
--- NOTE | 2017-04-15 11:19 | Discharge Summary ---
Date of Encounter: 04/15/17 Time of Encounter: 08:00 - Discharge Diagnosis (1) Asthma Priority: Secondary Status: Chronic (2) Tobacco abuse Priority: Secondary Status: Chronic (3) Prosthetic joint infection Priority: Primary Status: Acute Qualifiers: Encounter type: initial encounter Qualified Code(s): T84.50XA - Infection and inflammatory reaction due to unspecified internal joint prosthesis, initial encounter (4) Vitamin B12 deficiency (dietary) anemia Priority: Secondary Status: Acute - Discharge Medications Prescriptions: DULoxetine [Cymbalta] 30 mg PO DAILY #30 capsule. Ergocalciferol (VITAMIN D2) [Drisdol (50,000 Unit)] 50,000 unit PO QWEEK #15 capsule HYDROcodone/Acet 7.5/325 mg [[place] 7.5-325 mg] 1 tab PO Q6H PRN #30 tablet PRN Reason: Pain Nicotine Patch [Nicoderm] 21 mg TD DAILY #30 patch.td24 Pantoprazole Sodium [Protonix] 40 mg PO DAILY #14 tablet. Vancomycin HCl in Dextrose 5 % [Vancomycin-D5w 1.25 Gram/250Ml] 1.25 gm IV Q12H #20473 mls Home Medications: HYDROcodone/Acet 7.5/325 mg [[place] 7.5-325 mg] 1 tab PO Q6H PRN #30 tablet 04/09 [Rx] Nicotine Patch [Nicoderm] 21 mg TD DAILY #30 patch.td24 04/09/17 [Rx] Pantoprazole Sodium [Protonix] 40 mg PO DAILY #14 tablet. 04/09/17 [Rx] Vancomycin HCl in Dextrose 5 % [Vancomycin-D5w 1.25 Gram/250Ml] 1.25 gm IV Q12H #65682 mls 04/09/17 [Rx] Cyanocobalamin (B-12) [Vitamin B12] 1,000 mcg PO DAILY tablet 04/15/17 [Rx] DULoxetine [Cymbalta] 30 mg PO DAILY #30 capsule. 04/15/17 [Rx] Ergocalciferol (VITAMIN D2) [Drisdol (50,000 Unit)] 50,000 unit PO QWEEK #15 capsule 04/15/17 [Rx] Omeprazole [PriLOSEC] 20 mg PO DAILY@0630 capsule. 04/15/17 [Rx] Allergies/Adverse Reactions: 3 Allergy/AdvReac Type Severity Reaction Status Date / Time clindamycin AdvReac Swelling Verified 03/10/17 18:30 of the Eye Penicillins AdvReac Hives Verified 03/10/17 18:30 Date of admission: 04/06/17 15:59 Primary care physician: PCP NONE Consults: 04/06/17 17:19 Consult to Nutrition [CONS] Routine Comment: Consulting Provider: NUTRITION Reason for Dietary Consult: MST Score 04/13/17 14:42 Consult to Occupational Therapy [CONS] Routine Comment: Evaluate, develop and implement POC Reason for Consult: Discharge planning Consult to Physical Therapy [CONS] Routine Comment: Evaluate, develop and implement POC Reason for Consult: discharge planning Discharging clinician: Merrill Alonso Anticipated date of discharge: 04/15/17 - Patient Status Disposition: Transfer SNF Condition: Good Functional capacity at discharge: independent ambulation Overall status at discharge: patient is progressing back to baseline - Ambulatory Orders Ambulatory Orders: Vancomycin,Trough [CHEM] Time Frame: 6 Weeks, Facility: [facility], Location: Lab - Discharge Instructions Follow Up With: Diana Douglas PAC [Physician Lens Edger] - 04/22/17 1:45 pm Tracy Osorio CHARGE LPN [Advanced Practice Nurse] - 04/26/17 8:40 am NONE,PCP [Primary Care Provider] - Additional Instructions: Follow up with [facility] - Diet and Activity Activity: as per physical therapy Diet: regular diet Interval History: Ms. Mcallister is a 32 year old female presented to the ED after fall. She signed out AMA of ECF appx 2 weeks ago and has not received any IV antibiotics since that time. She admits to right shoulder pain at this time. 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 Ragland: Right shoulder open irrigation and debridement, hardware removal, sinus tract excision, removal of total shoulder replacement. Patient was seen by infectious disease team for medication selection and recommended Vancomycin for 8 weeks via PICC line. Patient's leena that had been in place since 03/12 surgery were removed in ED on Keep incision clean and dry. Do not allow dressing to get wet. If becomes 50% or greater saturated, change dressing. May remove dressing in 7 days.patient was admitted to the hospital and because patient has allergies to penicillin, cefipime. patient was placed on IV vancomycin . Infectious disease was consulted and recommended antibiotic vancomycin for 6 week. I had long discussion with patient today counseling about compliance to medication. Counseling about risk of noncompliance which include amputation of her arm, endocarditis, bacteremia. Patient understands risk and benefit. Patient discharged to [facility] to follow up with infectious disease as well as orthopedic as an outpatient .Patient need weekly CBC, BUN/Cr, ESR, CRP, and Vanc trough every Wednesday for the duration of treatment.Weekly PICC care per protocol.Follow up with ID 04/26/17 at 0840.Blood cultures drawn 04/06/17 x 2 sets are negative. ESR 22, CRP 1. Hospital course: Ms. Mcallister is a 32 year old female - Time Spent with Patient Total time spent providing and/or coordinating discharge services: Greater than 30 minutes - Constitutional Vitals: Temp Pulse Resp BP Pulse Ox 98.5 F 87 16 136/67 100 04/15/17 09:50 04/15/17 10:28 04/15/17 10:28 04/15/17 10:28 04/15/17 09:50 General appearance: Present: cooperative, A&O X 3, pleasant, no acute distress, answers questions appropriately - Head Head exam: Present: atraumatic, normocephalic - Neck Neck exam general surgery: Present: supple, trachea midline. Absent: lymphadenopathy - Respiratory Respiratory exam: Present: CTAB. Absent: accessory muscle use, rales, rhonchi, wheezes - Cardiovascular Cardiovascular exam: Present: RRR, +S1, +S2. Absent: diastolic murmur, gallop, rubs, systolic murmur - GI/Abdominal GI/Abdominal exam: Present: normal bowel sounds, soft, no peritoneal signs. Absent: distended, tenderness - Extremities Exam Extremities exam: Present: warm, radial pulses palpable and symmetrical. Absent : calf tenderness, cyanotic, pedal edema - Skin Skin exam: Present: dry, intact
--- NOTE | 2017-04-15 11:28 | Physician Discharge Referral ---
ExtendedCare Referral Info Transfer To: [facility] Institutional Level of Care: Skilled - Diagnosis (1) Asthma Priority: Secondary Status: Chronic (2) Tobacco abuse Priority: Secondary Status: Chronic (3) Prosthetic joint infection Priority: Secondary Status: Acute (4) Vitamin B12 deficiency (dietary) anemia Priority: Secondary Status: Acute Expected Duration of Placement: 6 weeks Prognosis: Good - Transfer Medications Prescriptions: DULoxetine [Cymbalta] 30 mg PO DAILY #30 capsule. Ergocalciferol (VITAMIN D2) [Drisdol (50,000 Unit)] 50,000 unit PO QWEEK #15 capsule HYDROcodone/Acet 7.5/325 mg [[place] 7.5-325 mg] 1 tab PO Q6H PRN #30 tablet PRN Reason: Pain Nicotine Patch [Nicoderm] 21 mg TD DAILY #30 patch.td24 Pantoprazole Sodium [Protonix] 40 mg PO DAILY #14 tablet. Vancomycin HCl in Dextrose 5 % [Vancomycin-D5w 1.25 Gram/250Ml] 1.25 gm IV Q12H #82614 mls Home Medications: HYDROcodone/Acet 7.5/325 mg [[place] 7.5-325 mg] 1 tab PO Q6H PRN #30 tablet 04/09 [Rx] Nicotine Patch [Nicoderm] 21 mg TD DAILY #30 patch.td24 04/09/17 [Rx] Pantoprazole Sodium [Protonix] 40 mg PO DAILY #14 tablet. 04/09/17 [Rx] Vancomycin HCl in Dextrose 5 % [Vancomycin-D5w 1.25 Gram/250Ml] 1.25 gm IV Q12H #98031 mls 04/09/17 [Rx] Cyanocobalamin (B-12) [Vitamin B12] 1,000 mcg PO DAILY tablet 04/15/17 [Rx] DULoxetine [Cymbalta] 30 mg PO DAILY #30 capsule. 04/15/17 [Rx] Ergocalciferol (VITAMIN D2) [Drisdol (50,000 Unit)] 50,000 unit PO QWEEK #15 capsule 04/15/17 [Rx] Omeprazole [PriLOSEC] 20 mg PO DAILY@0630 capsule. 04/15/17 [Rx] Allergies/Adverse Reactions: 3 Allergy/AdvReac Type Severity Reaction Status Date / Time clindamycin AdvReac Swelling Verified 03/10/17 18:30 of the Eye Penicillins AdvReac Hives Verified 03/10/17 18:30 - Respiratory Orders Smoking Cessation: Smoking cessation has been advised. For more information, call the [place] Tobacco Quit Line at 8-695-UQFR-NOW. - Lab Orders Lab Orders: Other (include drug levels w/frequency) (Location: Right shoulder. Causative organism MSSA. Secondary to right shoulder surgical wound infection. Status post right shoulder open I & D, hardware removal, sinus tract excision, and removal of total shoulder hardware 03/12/[address] Ragland. Sinus tract noted down to the hardware. Cement spacer placed. The patient's PCN allergy limits our potential antibiotic choices. Additionally, the patient had a possible reaction to the cefepime during her last hospitalization. Continue Vancomycin IV. Pharmacy to dose. Goal trough ~15. for40 days Duration of treatment depends on the clinical picture, but likely 6 weeks of IV antibiotics. long-term IV antibiotic therapy. director of patient financial services consulted and following to assist with discharge planning. Recommend the patient be placed at an ECF to ensure compliance with medication regimen and avoid concern for misuse of PICC line. Monitor renal function and for drug toxicity and dose-adjust antibiotics. PICC line placed 04/08/17. Will need weekly CBC, BUN/Cr, ESR, CRP, and Vanc trough every Wednesday for the duration of treatment. Weekly PICC care per protocol. Follow up with ID 04/26/17 at 0840.) - Mobility Orders Ambulate - Rehabiliation Orders Rehab Potential: Good - Diet Orders Regular CERTIFICATION: I certify that the transfer of the above named patient to an Extended Care Facility is necessary for the continuing treatment of the diagnosis listed. The above information is true and accurate reflection of patient's current condition. Confidential - Redisclosure prohibited without a patient's written consent.
[2017-04-15] MEDS ORDERED: Aminoglycoside Consult 1 EACH MC ONE (12:18)
== END 2017-04-15 12:19 | DRG 349 ==
LOC: 3ANU 12:14 → EMEROO 12:14 → 3NENU 15:57
PROVIDERS: ADMIT Student in an Organized Health Care Education/Training Program; ATTEND Internal Medicine